=== PATIENT | male | born 1940 | race Caucasian/White ===

== ENCOUNTER → 2016-07-02 10:32 | Outpatient (CLI) | payer MEDICARE, OTHER ==
[2015-09-21 09:48] VITALS: BMI 26.6
[~2016-07-02 10:32] MED LIST: AUGMENTIN 875-11 TAB PO; BAYER CHEWABLE81 MG PO; FLOMAX0.4 MG PO; FUROSEMIDE20 MG PO; GLIMEPIRIDE4 MG PO; HYDROCODONE-APA1 TAB PO; KENALOG 0.1 % 115 GM TOPICAL; LIPITOR20 MG PO; LOTREL 5/20 MG1 CAP; MAG-OXIDE400 MG PO; MULTI-DAY VITAM1 TAB PO; NORMODYNE / TR200 MG PO; OMEPRAZOLE20 M1 PO; PROSCAR5 MG PO; TIMOPTIC 0.5 % O5 ML EACH EYE; TOUJEO SOL300 UNIT/1 SC; XALATAN 0.0052.5 ML RIGHT EYE; ZYLOPRIM100 MG PO
== END | disposition home or self-care (01) ==
LOC: D.US 10:32
DX: I10 Essential (primary) hypertension (principal); E78.2 Mixed hyperlipidemia; N18.4 Chronic kidney disease, stage 4 (severe); E11.9 Type 2 diabetes mellitus without complications; Z68.27 Body mass index [BMI] 27.0-27.9, adult

== ENCOUNTER 2018-08-10 05:50 | Day surgery (SDC) | payer MEDICARE, OTHER ==
[~2018-08-10] VITALS: Ht 177.8 cm; Wt 84.4 kg
[2018-08-10 06:27] LABS: BASOPHILS 0.7 % (0-2); EOSINOPHILS 7.8 % (0-7); HEMATOCRIT 27.5 % (42.0-54.0); IMMATURE GRANULOCYTES 0.1 % (0-5); LYMPHOCYTES 19.5 % (15-50); MCH 29.2 pg (26.0-34.0); MCHC 32.7 g/dL (31.0-37.0); MCV 89.3 fL (80.0-100.0); MEAN PLATELET VOLUME 11.1 fL (7.4-10.4); NEUTROPHILS 63.9 % (40-80); PLATELET COUNT 346 10x3/uL (130-400); RBC 3.08 10x6/uL (4.20-6.10); WBC 8.7 10x3/uL (4.8-10.8)
[2018-08-10 06:35] LABS: APTT 33.7 SECONDS (22.8-39.4); INR 1.04 (0.85-1.17); PROTIME 13.1 SECONDS (11.6-15.0)
[2018-08-10 06:51] LABS: ANION GAP 20.3 mmol/L (8-16); CALCIUM 7.8 mg/dL (8.5-10.1); CARBON DIOXIDE 19.9 mmol/L (21.0-32.0); POTASSIUM - SERUM 4.2 mmol/L (3.5-5.1)
[2018-08-10] MEDS ORDERED: VITAMIN D250000 UNIT PO (09:07)
[2018-08-10] MEDS ORDERED: SODIUM BICARBO650 MG PO (09:09)
[2018-08-10 09:14] VITALS: Ht 177.8 cm; Wt 84.4 kg
--- NOTE | 2018-08-10 13:31 | NUR ---
5623 DR. VEGA PAGED TO INFORM OF HEMATOMA FORMATION
--- NOTE | 2018-08-10 13:38 | NUR ---
0905 PT REQUESTS SOMETHING FOR PAIN, DR. VEGA PAGED. WATER SERVED.
--- NOTE | 2018-08-11 17:25 | OP ---
PATIENT NAME: GILDA CONTRERAS MEDICAL RECORD: [id number] :38 LOCATION:D.FORMERLY [facility] [place] ADMISSION DATE: SURGEON: MICHEL VEGA MD DATE OF OPERATION: 08/10/2018 PREOPERATIVE DIAGNOSES: 1. End-stage renal disease without chronic access for hemodialysis. 2. History of a positive cardiac stress test. POSTOPERATIVE DIAGNOSES: 1. End-stage renal disease without chronic access for hemodialysis. 2. History of a positive cardiac stress test. PROCEDURE: Placement of left radiocephalic primary arteriovenous fistula for hemodialysis access. SURGEON: Michel Vega MD PUBLIC ADDRESS SYSTEM OPERATOR: None. BLOOD LOSS: Less than 75 cc. ANESTHESIA: Local with IV sedation. The risks, possible complications and alternatives to the procedure were explained to the patient. He elects to proceed. OPERATIVE COURSE: The patient was conveyed to the operating room electively on 08/10/2018. Local with IV sedation was induced by anesthesia staff. The left upper extremity was sterilely prepped and draped and abducted at 90 degrees to the patient's trunk. A local anesthetic was used to infiltrate the tissues around the proposed operative site. With the ultrasound, I interrogated the left upper extremity identified a compressible fairly large cephalic vein in the arm as well as an adequately sized cephalic vein in the forearm and extending out onto to the wrist. A Jaylin tourniquet was applied on the extremity proximally. An axial incision was accomplished on the volar surface of the distal forearm extending down onto the wrist. I dissected down to the radial artery with its paired venous branches. The venous branches were ligated multiply and divided between ligatures. The radial artery was of good quality and nicely sized. Vessel loops were placed proximally and distally. I then dissected down to the cephalic vein, which was unfortunately small in size; however, it was supple. A tie was placed in the cephalic vein distally and it was divided proximally. I then beveled the cephalic vein with a pair of micro-Mantilla scissors. A longitudinal arteriotomy was accomplished on the radial artery. A side-to-end arterial to venous anastomosis was then fashioned with a running 7-0 Prolene. There was a thrill within the fistula. A topical hemostatic agent was added to the wound for hemostasis. The subdermis was approximated with interrupted 3-0 Vicryls. The skin was approximated with a running intracuticular 3-0 Vicryl. A sterile dressing was applied. OPERATIVE REPORT [id number] GILDA CONTRERAS The patient was then conveyed to the outpatient department. He developed a subcutaneous hematoma that I am going to manage expectantly. TRANSINT:[id number] Voice Confirmation ID: [id number] DOCUMENT ID: [id number] MICHEL VEGA MD at 1725 CC: [id number] DICTATION DATE: 08/10/18 1444 STUD SHEEP FARMER: 08/10/18 1626 [facility] 08/10/18 [address] [place] [address]
== END 2018-08-10 15:25 | disposition home or self-care (01) ==
LOC: D.OPS 05:50
PROVIDERS: Anesthesiology; ATTEND Internal Medicine Nephrology
DX: N18.6 End stage renal disease (principal); R94.39 Abnormal result of other cardiovascular function study; Z01.812 Encounter for preprocedural laboratory examination

== ENCOUNTER 2019-01-12 07:41 | Inpatient (IN) | payer MEDICARE, OTHER ==
[~2019-01-12] VITALS: Ht 177.8 cm; Wt 79.1 kg
[~2019-01-12 07:41] MED LIST changes: +SODIUM BICARBO650 MG PO; +VITAMIN D250000 UNIT PO
[2019-01-12 08:28] LABS: ANION GAP 13.8 mmol/L (8-16); CALCIUM 9.4 mg/dL (8.5-10.1); CARBON DIOXIDE 27.4 mmol/L (21.0-32.0); CREATININE - SERUM 4.8 mg/dL (0.6-1.3); POTASSIUM - SERUM 4.2 mmol/L (3.5-5.1)
[2019-01-12 08:31] LABS: APTT 31.5 SECONDS (22.8-39.4); INR 1.03 (0.85-1.17)
[2019-01-12 09:23] LABS: HEMATOCRIT 35.7 % (42.0-54.0); HEMOGLOBIN 12.1 g/dL (13.5-17.5); MCH 30.3 pg (26.0-34.0); MCHC 33.9 g/dL (31.0-37.0); MCV 89.3 fL (80.0-100.0); MEAN PLATELET VOLUME 10.8 fL (7.4-10.4); PLATELET COUNT 364 10x3/uL (130-400); RDW 16.4 % (11.5-14.5); WBC 9.5 10x3/uL (4.8-10.8)
[2019-01-12] MEDS ORDERED: LISINOPRIL20 MG PO (09:28)
[2019-01-12 09:52] VITALS: BMI 25.0
[2019-01-12 10:15] LABS: ANISOCYTOSIS OCC; EOSINOPHILS 11 % (0-7); LYMPHOCYTES 21 % (15-50); MONOCYTES 9 % (2-11); NEUTROPHILS 57 % (40-80); PLATELET ESTIMATE NORMAL
[2019-01-12 10:16] LABS: HYPOCHROMASIA OCC; ROULEAUX OCC
[2019-01-12 16:31] VITALS: BP 166/84
[2019-01-12 17:08] VITALS: BP 166/84; Ht 177.8 cm; Wt 79.1 kg
[2019-01-12 20:00] VITALS: BP 156/77
[2019-01-13] VITALS: BP 153/78
[2019-01-13 04:00] VITALS: BP 130/76
[2019-01-13] MEDS ORDERED: HYDROCODON-ACE1 EAC7 PO (09:04)
--- NOTE | 2019-01-13 09:21 | OP ---
PATIENT NAME: GILDA CONTRERAS MEDICAL RECORD: [id number] :38 LOCATION:D.M2 D.2108 ADMISSION DATE:01/12/19 SURGEON: CRUZITO VEGA MD DATE OF OPERATION: 01/12/2019 PREOPERATIVE DIAGNOSIS: End-stage renal disease without peripheral access for hemodialysis. POSTOPERATIVE DIAGNOSIS: End-stage renal disease without peripheral access for hemodialysis. PROCEDURE: Left proximal radial artery arteriovenous fistula for hemodialysis access. SURGEON: Cruzito Vega MD FISH DRIER: None. BLOOD LOSS: Minimal. ANESTHESIA: Block with general. COMPLICATIONS: None. The risks, possible complications and alternatives to the procedure were explained to the patient. He elects to proceed. I saw the patient preoperatively. The patient underwent an upper extremity block for venous dilation. OPERATIVE COURSE: The patient was conveyed to the operating room electively on 01/12/2019. General anesthesia was induced by anesthesia staff. The left upper extremity was abducted at 80 degrees to the patient's trunk. The left upper extremity was sterilely prepped and draped. I supinated the patient's left wrist. An axial incision was accomplished on the volar surface of the proximal forearm. I dissected down to the antebrachial vein, which was encircled with vessel loops. A deep branch was ligated with a silk tie. I then identified the antebrachial nerve, which was protected for the operation. I dissected down to the radial artery, which was of moderate quality and nicely sized. It was encircled with vessel loops as well. Intravenous heparin was given. The antebrachial vein and the radial artery were then placed into apposition side by side. A longitudinal venotomy and longitudinal arteriotomy were accomplished. I then dilated up the antebrachial vein lysing some of the valves as I inserted a vessel dilator out the forearm. I then fashioned a [id number]-ax-rcfm anastomosis with a running 7-0 Prolene suture. Proximal and distal control was released on the fistula. Doppler signal could be heard in the brachial artery proximal and distal to the anastomosis as well as within the antebrachial vein and both the basilic and cephalic veins. Fibrillar was added to the wound for additional hemostasis. The subdermis was approximated with interrupted 3-0 Vicryls. The skin was approximated with a running intracuticular 3-0 Vicryl. Benzoin and Steri-Strips were applied. The patient was then extubated and conveyed to the post-anesthesia care unit OPERATIVE REPORT [id number] BENGILDA EDIE where he was in stable condition. My plan is to admit him to the hospital overnight. My hope is that he can undergo hemodialysis in the morning and then be dismissed home with Sipsey for pain. TRANSINT:[id number] Voice Confirmation ID: [id number] DOCUMENT ID: [id number] CRUZITO VEGA MD at 0921 CC: CATHERINE KHALIL [id number] DICTATION DATE: 01/12/19 1536 WELDING MACHINE SETTER: 01/12/19 1618 ADM IN [facility] [address] [id number]
--- NOTE | 2019-01-13 09:53 | DS ---
PATIENT:IGLDA CONTRERAS :38 MEDICAL RECORD: [id number] DISCHARGE SUMMARY ADMISSION DATE: 01/12/19 DISCHARGE DATE: 01/13/19 PRINCIPAL DIAGNOSES: 1. End-stage renal disease without peripheral access for hemodialysis. 2. History of a failed wrist fistula. 3. History of HemoSplit placement. 4. Anemia of chronic disease, not related to blood loss. 5. Benign prostatic hyperplasia. PROCEDURE: Placement of left proximal radial artery fistula for hemodialysis access. HOSPITAL COURSE: The patient underwent the above operative procedure. He was monitored in the hospital postoperatively to observe for bleeding. The following day, he was having no distal paresthesias. No evidence of steal syndrome. He had had a preoperative block in order to dilate the left upper extremity vasculature and this had worn off. He had good motor function in the left hand. There was an excellent thrill within the fistula. I think there is at least dual outflow and perhaps treble outflow from the fistula. He is being dismissed home on hydrocodone for pain. I will see him on a p.r.n. basis. There is no need for him to follow up with me in the office unless he develops a complication related to this operative procedure. TRANSINT:[id number] Voice Confirmation ID: [id number] DOCUMENT ID: [id number] CRUZITO VEGA MD at 0953 CC: CATHERINE KHALIL [id number] DICTATION DATE: 01/13/19919 TECHNOLOGY DEVELOPMENT INTERN: 01/13/19929 DIS IN 01/13/19 [id number] [place] [id number]
--- NOTE | 2019-01-13 17:15 | MORECARE ---
CASE MANAGEMENT DISCHARGE SUMMARY PATIENT: GILDA CONTRERAS UNIT: [id number] ADM DATE: 01/12/19 AGE: 78 : 39 SEX: M ROOM/BED: D.2108 AUTHOR: DARIUSZ POSEY PHYSICIAN: REFERRING PHYSICIAN: CRUZITO VEGA MD DATE OF SERVICE: 01/13/19 Discharge Plan Patient Name: GILDA CONTRERAS Facility: [facility]:[place] : 1940 Planned Disposition: Home Anticipated Discharge Date: 01/13/19 Discharge Date: 01/13/2019 Expected LOS: 1 Initial Reviewer: [email or web address] Initial Review Date: 01/13/2019 Generated: 01/13/19 6:15 pm DCPIA - Discharge Planning Initial Assessment Updated by [email or web address]: Tae Garcia on 01/13/19 5:15 pm * Is the patient Alert and Oriented? Yes * How many steps to enter\exit or inside your home? * PCP DR BUSH * Pharmacy [facility] IN [place] * Preadmission Environment Home with Family * ADLs Independent * Equipment None * Other Equipment MEDICAL EQUIPMENT PROVIDER IN [place] - PROVIDER [facility]REF[facility]CE * List name and contact numbers for known caregivers / representatives who currently or will assist patient after discharge: SANDIE CONTRERAS, SPOUSE, * Verbal permission to speak to the caregivers and representatives has been obtained from the patient. N/A * Community resources currently utilized Other * Please name any agencies selected above. [facility], [place], MWF, 0600, [facility] * Additional services required to return to the preadmission environment? No * Can the patient safely return to the preadmission environment? Yes * Has this patient been hospitalized within the prior 30 days at any hospital? No Patient Name: GILDA CONTRERAS Page 54411 at 1719 All edits/amendments must be made on the electronic document DICTATION DATE: 01/13/191714 EMBOSSING CALENDER OPERATOR: WILLIAM 01/13/191714 RPT#: [id number] DC DATE:01/13/19 STATUS: DIS IN [facility] [address] [place] [address] END OF REPORT
--- NOTE | 2019-01-13 17:23 | MORECARE ---
CASE MANAGEMENT DISCHARGE SUMMARY PATIENT: GILDA CONTRERAS UNIT: [id number] ADM DATE: 01/12/19 AGE: 78 : 39 SEX: M ROOM/BED: D.210 AUTHOR: TATY,DOC PHYSICIAN: REFERRING PHYSICIAN: CRUZITO VEGA MD DATE OF SERVICE: 01/13/19 Discharge Plan Patient Name: GILDA CONTRERAS Facility: [facility]:[place] : 1940 Planned Disposition: Home Anticipated Discharge Date: 01/13/19 Discharge Date: 01/13/2019 Expected LOS: 1 Initial Reviewer: [email or web address] Initial Review Date: 01/13/2019 Generated: 01/13/19 6:23 pm Comments DCP- Discharge Planning Updated by [email or web address]: Tae Garcia on 01/13/19 4:[address] Patient Name: GILDA CONTRERAS Admission Status: Elective Accout number: [id number] Admission Date: 01-12-2019 : 1940 Admission Diagnosis: Attending: CRUZITO VEGA Current LOS: 1 Anticipated DC Date: 01-13-2019 Planned Disposition: Home Primary Insurance: MEDICARE A & B Discharge Planning Comments: Yeast Maker: Tae Garcia CM MET WITH PT IN ROOM TO DISCUSS DISCHARGE PLANNING AND NEEDS. PT REPORTS LIVING AT HOME INDEPENDENTLY WITH SPOUSE. PT HAS NO MEDICAL EQUIPMENT AND IF EVER NEEDED, WOULD USE PROVIDER IN [place]. PT HAS NO OUTSIDE SERVICES ASSISTING IN THE HOME. PT HAS DIALYSIS IN [place] ON MWF 0600AM SCHEDULE AND DRIVES SELF. CM DISCUSSED AVAILABILITY OF HOME HEALTH, REHAB SERVICES AND MEDICAL EQUIPMENT. PT DENIES DISCHARGE NEEDS, REPORTS HIS WILL PICK HIM UP FOR DISCHARGE HOME. Yeast Maker: Tae Garcia DCPIA - Discharge Planning Initial Assessment Updated by [email or web address]: Tae Garcia on 01/13/19 5:15 pm * Is the patient Alert and Oriented? Yes * How many steps to enter\exit or inside your home? * PCP DR BUSH * Pharmacy [facility] IN [place] * Preadmission Environment Home with Family * ADLs Independent * Equipment None * Other Equipment MEDICAL EQUIPMENT PROVIDER IN [place] - PROVIDER [facility]REF[facility]CE * List name and contact numbers for known caregivers / representatives who currently or will assist patient after discharge: SANDIE BROWNOOL, SPOUSE, * Verbal permission to speak to the caregivers and representatives has been obtained from the patient. N/A * Community resources currently utilized Other * Please name any agencies selected above. OUTPATIENT DIALYS[facility], [facility] [place], 0600, [facility] * Additional services required to return to the preadmission environment? No * Can the patient safely return to the preadmission environment? Yes * Has this patient been hospitalized within the prior 30 days at any hospital? No Last DP export: 01/13/19 4:15 p Patient Name: GILDA CONTRERAS Page [id number] at 1723 All edits/amendments must be made on the electronic document DICTATION DATE: 01/13/191722 HEAD ANIMAL TRAINER: WILLIAM 01/13/191722 RPT#: [id number] DC DATE:01/13/19 STATUS: DIS IN [facility] [address] [place] [address] END OF REPORT
== END 2019-01-13 09:26 | disposition home or self-care (01) | DRG 673 ==
LOC: D.OPS 07:41 → D.M2 16:27 → D.OPS 16:28 → D.M2 01-13 09:26
PROVIDERS: Anesthesiology; ADMIT Surgery; ATTEND Surgery
PROC: 031C0ZF Bypass Left Radial Artery to Lower Arm Vein, Open Approach (ICD-10-PCS; principal; 2019-01-12 11:30)
DX: I12.0 Hypertensive chronic kidney disease with stage 5 chronic kidney disease or end stage renal disease (principal); N18.6 End stage renal disease; E11.22 Type 2 diabetes mellitus with diabetic chronic kidney disease; N40.0 Benign prostatic hyperplasia without lower urinary tract symptoms; D63.1 Anemia in chronic kidney disease

== ENCOUNTER → 2019-01-19 08:23 | Outpatient (CLI) | payer MEDICARE, OTHER ==
[2019-01-12 17:08] VITALS: BMI 25.0
[~2019-01-19 08:23] MED LIST changes: +HYDROCODON-ACE1 EAC7 PO; +LISINOPRIL20 MG PO
--- NOTE | 2019-01-22 10:47 | EC ---
PATIENT:GILDA CONTRERAS DATE OF SERVICE: 01/19/19 SEX: M MEDICAL RECORD: [id number] DATE OF : 38 LOCATION:[facility]FORMERLY [facility] AGE OF PATIENT: 78 ADMISSION DATE: 01/19/19 REFERRING PHYSICIAN: INTERPRETING PHYSICIAN: KOFFI MAHMOOD MD ECHOCARDIOGRAM REPORT ECHO CHARGES 4 ECHO COMPLETE Date: 01/19/19 CLINICAL DIAGNOSIS: HTN / RENAL DISEASE ECHOCARDIOGRAPHIC MEASUREMENTS (adult normal given) AC root (d.<3.7cm) 3.0 cm LV Septum d (<1.2 cm> 1.5 cm Valve Excursion 1.6 cm LV Septum (systole) 1.7 cm Left Atria (s.<4.0cm> 4.1 cm LVPW d(<1.2cm) 1.8 cm RV (d.<2.3cm) 4.2 cm LVPW (sytole) 1.9 cm LV diastole(<5.6CM) 5.1 cm MV E-F(>70mm/sec) cm LV systole 3.7 cm LVOT Diameter 1.7 cm MV exc.(>10mm) 1.5 cm Est.ejection fraction (50-75%) % DOPPLER: LVIT cm/sec A 90.0 cm/sec E 66.0 cm/sec LA cm/sec RVSP 26 mmHg LVOT 78 cm/sec AOP1/2T m/s Asc. Ao 159 cm/sec RVOT 79 cm/sec RA cm/sec PA 113 cm/sec AV Gradient Peak 10.12mmHg AV Mean 5.90 mmHg AV Area 2.4 cm MV Gradient Peak 6.92 mmHg MV Mean 2.75 mmHg MV Area cm COMMENTS: Forest Fire Prevention Manager: Luis Fernando ALMANZA Manager Enterprise Content Management: 1 Dr. Mahmood TAPE# PACS Pericardial Effusion N DATE OF SERVICE: 01/19/2019 PROCEDURE: Echocardiogram. FINDINGS: 1. Left ventricular chamber size is within normal limits. Left ventricular systolic function is normal. Overall ejection fraction 60% to 65%. 2. Left atrium, right atrium, and right ventricular chamber sizes are mildly dilated. Left atrium measures 4.1 cm. 3. Valvular structures have normal structure and motion. ECHOCARDIOGRAM REPORT [id number] GILDA CONTRERAS 4. Doppler interrogation reveals moderate mitral regurgitation, mild tricuspid regurgitation, no other valvular insufficiency or stenosis. 5. No evidence of pericardial effusion or left ventricular thrombus. TRANSINT:[id number] Voice Confirmation ID: [id number] DOCUMENT ID: [id number] KOFFI MAHMOOD MD at 1047 CC: [id number] DICTATION DATE: 01/20/19 1229 SUCCESS COACH: 01/20/19 1257 DEP CLI 01/19/19 [address] [id number] [place] [id number]
== END | disposition home or self-care (01) ==
LOC: D.HCCARDIO 08:23
PROVIDERS: ATTEND Internal Medicine Interventional Cardiology
DX: I10 Essential (primary) hypertension (principal)

== ENCOUNTER → 2019-10-05 12:18 | Outpatient (CLI) | payer MEDICARE, OTHER ==
[2019-01-12 17:08] VITALS: BMI 25.0
== END | disposition home or self-care (01) ==
LOC: D.US 12:18
PROVIDERS: ATTEND Internal Medicine Nephrology
DX: I65.21 Occlusion and stenosis of right carotid artery (principal)

== ENCOUNTER 2019-10-12 11:11 | Inpatient (IN) | payer MEDICARE, OTHER ==
[2019-10-12] VITALS (13 sets, daily range): BP systolic 129–172; BP diastolic 76–98; BMI 25.3; BMI 25.1
[~2019-10-12] VITALS: Ht 177.8 cm; Wt 69.6 kg
--- NOTE | ~2019-10-12 | HEMODYNAMI ---
PATIENT:GILDA CONTRERAS MEDICAL RECORD: [id number] : 38 LOCATION:[facility] ADMISSION DATE: 10/12/19 Generatedon:10/14/201916:34 Patient name: GILDA CONTRERAS Patient #: [id number] SSN: [id number] : 1940 Date of study: 10/14/2019 Page: Of Hemodynamic Procedure Report Patient Data Patient Demographics Procedure consent was obtained First Name: GILDA Gender: Male Last Name: BEN : 1940 Middle Initial: IRIZARRY Age: 79 year(s) Patient #: [id number] Race: SSN: [id number] Additional ID: [id number] Contact details Address: [address] State: [place] City: [place] Zip code: [address] Past Medical History Allergies Allergen Reaction Date Comments Reported Other allergy 10/12/2019 MORPHINE Morphine 10/14/2019 Admission Admission Data Admission Date: 10/12/2019 Admission Time: 21:47 Arrival Date: 10/12/2019 Arrival Time: 0:00 Room #: [id number] Height (in.): 70 BSA: 1.98 (m2) Height (cm.): 177.8 BMI: 25.31 (kg/m2) Weight (lbs.): 176.37 Weight (kg.): 80 Lab Results Lab Result Date: 10/12/2019 Lab Result Time: 0:00 Biochemistry Name Units Result Min Max BUN mg/dl 39 --(----)-* 7 18 Creatinine mg/dl 5.9 --(----)-* 0.6 1.3 eGFR ml/min 10 *-(----)-- 90 120 NONAFRICAN CBC Name Units Result Min Max Hematocrit % 29.9 *-(----)-- 42 54 Hemoglobin g/dl 9.3 *-(----)-- 13.5 17.5 Procedure Procedure Types Cath Procedure Diagnostic Procedure Intra-Aortic Balloon Pump Peripheral Cath Diagnostic Procedure Service Inspector Peripheral Procedures Four Vessel Arteriogram Procedure Description Procedure Date Procedure Date: 10/14/2019 Procedure Start Time: 15:54 Procedure End Time: 16:31 Procedure Staff Name Function Hussein Leach MD Performing Physician Alysa Holman RT Monitor Norma Carranza RT Scrub Brooke Walls RN Nurse Procedure Data Cath Procedure Fluoroscopy Diagnostic fluoroscopy Total fluoroscopy Time: 3.2 time: 3.2 min min Diagnostic fluoroscopy Total fluoroscopy dose: 140 dose: 140 mGy mGy Contrast Material Contrast Material Type Amount (ml) Isovue 300 65 Entry Location Entry Primary Successful Side Size Upsize Upsize Entry Closure Succes sful Closure Location (Fr) 1 (Fr) 2 (Fr) Remarks Device Remarks Femoral Right 8 Fr artery Estimated blood loss: 10 ml Diagnostic catheters Device Type Used For End Catheter Placement DIAGNOSTIC 3DRC 5Fr Procedure catheter ([id number]) Procedure Complications No complications Procedure Medications Medication Administration Route Dosage 0.9% NaCl I.V. 100 ml/hr Oxygen etCO2 Nasal cannula 2 l/min Lidocaine 2% added to field 20 Heparin Flush Bag added to field 2 bags (1000units/500ml NS) Heparin Drip I.V. drip 1000 units/hr ([id number]/250 D5W) Versed I.V. 2 mg Fentanyl I.V. 50 mcg Digoxin I.V. 0.25 mg Lopressor I.V. 5 mg Mechanical Ventricular Support IABP: In place at start of procedure Hemodynamics Rest BSA: 1.98 (m2) HGB: 9.3 (g/dl) O2 Consumption: Estimated: 259.09 (ml/min) O2 Con sumption indexed: Estimated:130.85 (ml/min/m) Heart Rate: 114 (bpm) Snapshots Pre Cath Intra NCS Post Cath Vital Signs Time Heart Resp SPO2 etCO2 NIBP (mmHg) Rhythm Pain Sedation Rate (ipm) (%) (mmHg) Status Level (bpm) 15:31:58 112 26 97 11.9 162/94(129) ST 0 (11) 10(A) , No pain 15:36:10 108 18 97 28.7 124/78(113) ST 0 (11) 10(A) , No pain 15:40:20 107 11 96 45.5 140/87(117) ST 0 (11) 10(A) , No pain 15:44:36 109 10 97 25.3 138/85(105) ST 0 (11) 10(A) , No pain 15:48:54 106 10 96 25.6 138/77(122) ST 0 (11) 10(A) , No pain 15:53:04 110 14 99 17.9 149/87(111) ST 0 (11) 10(A) , No pain 15:57:20 106 21 98 14.9 140/90(116) ST 0 (11) 9(A) , No pain 16:01:38 101 13 98 16.4 130/77(109) ST 0 (11) 9(A) , No pain 16:05:50 105 17 98 14.9 139/85(116) ST 0 (11) 9(A) , No pain 16:10:49 101 [address] 0 (11) 9(A) , No pain 16:12:13 [address] 0 (11) 9(A) Exceeded , No pain 16:14:10 102 22 96 14.2 125/67(98) ST 0 (11) 10(A) , No pain 16:18:11 107 22 98 1.4 132/93(114) ST 0 (11) 10(A) , No pain 16:23:11 92 [address] 0 (11) 10(A) , No pain 16:24:28 90 [address] 0 (11) 10(A) range , No pain Medications Time Medication Route Dose Verified Delivered Reason No christina Effectiveness by by 15:30:58 0.9% NaCl I.V. 100 Hussein Brooke used for ml/hr Hany Titi procedure MD SIMMONS 15:31:04 Oxygen etCO2 2 l/min Hussein Guerraa used for Nasal Hany Titi procedure cannula MD [facility]MONS 15:31:10 Lidocaine 2% added 20ml Hussein [facility] 15:31:15 Heparin Flush added 2 bags Hussein Savage used for Bag to Hany Hany procedure (1000units/500ml field MD [facility] NS) 15:31:29 Heparin Drip I.V. 1000 Hussein Brooke for (93080gxypf/250 drip units/hr Hany Titi anticoagulation D5W) RN 15:53:00 Versed I.V. 2 mg Hussein Cox for sedation St Abiodun Walls MD RN 15:53:06 Fentanyl I.V. 50 mcg Hussein Cox for sedation St Abiodun Walls MD RN 16:22:08 Digoxin I.V. 0.25 mg Hussein Guerraa Per physician St Abiodun Walls MD RN 16:22:39 Lopressor I.V. 5 mg Hussein Cox Per physician St Abiodun Walls MD information technology intern Log Time Note 15:14:14 Procedure Status Urgent Heart Cath (IP). 15:14:17 Brooke Walls RN sent for patient. Start room use. 15:14:18 Time tracking: Regular hours (M-F 7:00 - 5:00) 15:14:22 Plan of Care:Hemodynamics will remain stable., Cardiac rhythm will remain stable., Comfort level will be maintained., Respiratory function will remain adequate., Patient/ family verbilizes understanding of procedure., Procedure tolerated without complication., Recovers from procedure without complications.. 15:14:24 Signed procedure consent form obtained from patient. 15:14:31 H&P Date Dictated: 10/14/2019 ER History on chart.. 15:28:57 Patient received from CVICU to CCL 1 Alert and oriented. Tansferred to table in Supine position. 15:28:58 Warm blankets applied, and jolene hugger turned on for patient comfort. 15:28:58 Correct patient and procedure confirmed by team. 15:28:59 ECG and BP/O2 sat monitors applied to patient. 15:30:50 Vital chart was started 15:30:58 0.9% NaCl 100 ml/hr I.V. was administered by Brooke Walls RN; used for procedure; Verbal order read back and verified. 15:31:04 Oxygen 2 l/min etCO2 Nasal cannula was administered by Brooke Walls RN; used for procedure; Verbal order read back and verified. 15:31:10 Lidocaine 2% 20ml vial added to field was administered by Hussein Leach MD; for local anesthetic; Verbal order read back and verified. 15:31:15 Heparin Flush Bag (1000units/500ml NS) 2 bags added to field was administered by Hussein Leach MD; used for procedure; Verbal order read back and verified. 15:31:29 Heparin Drip (63281bzvnu/250 D5W) 1000 units/hr I.V. drip was administered by Brooke Walls RN; for anticoagulation; Verbal order read back and verified. 15:32:18 Baseline sample Acquired. 15:32:29 Rhythm: atrial fibrillation 15:32:30 Full Disclosure recording started 15:32:31 Pre-procedure instructions explained to patient. 15:32:31 Pre-op teaching completed and patient verbalized understanding. 15:32:33 Family unavailable. 15:32:35 Patient NPO since Midnight. 15:32:48 Patient allergic to Morphine 15:32:53 Is the patient allergic to Iodine/contrast media? No. 15:32:54 Is patient on blood thinner?No 15:33:14 Patient diabetic? No. 15:33:16 Previous problem with sedation/anesthesia? No ? 15:33:17 Snore? Yes 15:33:18 Sleep apnea? No 15:33:20 Deviated septum? No 15:33:21 Opens mouth fully? Yes 15:33:23 Sticks out tongue? Yes 15:33:25 Airway obstruction? No ? 15:33:27 Dentures? No ? 15:33:30 Pre procedure: right dorsailis pedis pulse 1+ Palpable, but thready & weak; easily obliterated 15:33:33 Patient pain scale 0/10 ?. 15:33:37 IV patent on arrival in right hand with 0.9% NaCl at [facility]. 15:33:40 Lab results completed and on chart. 15:33:45 Right groin area was prepped with chlora-prep and draped in sterile fashion 15:33:46 Alarms reviewed by R. N. 15:33:46 Sharps counted by scrub and verified by R.N. 15:34:22 Use device set CATH PACK 15:34:23 ACIST Syringe (80456) opened to sterile field. 15:34:23 ACIST Hand Control (04364) opened to sterile field. 15:34:23 ACIST Manifold (01430) opened to sterile field. 15:34:24 Medline Cath Pack ([id number]) opened to sterile field. 15:34:24 Bag Decanter (2001S) opened to sterile field. 15:34:25 EMERALD Guide Wire (390-157) opened to sterile field. 15:34:54 IABP 40cm balloon catheter ([id number]) opened to sterile field. 15:34:56 TUBING High Pressure Extension (IABP) opened to sterile field. 15:35:16 Sheath 8fr. [place] 10cm opened to sterile field. 15:51:18 --------ALL STOP TIME OUT------ 15:51:19 Final Timeout: patient, procedure, and site verified with staff and physician. All members of the team are in agreement. 15:51:20 Right groin site verified by team. 15:51:23 Fire Safety Assessment: A--An alcohol-based skin anteseptic being used preoperatively., C--Open oxygen or nitrous oxide is being used., D--An ESU, laser, or fiber-optic light is being used. 15:51:27 Physical assessment completed. ASA score P 3 - A patient with severe systemic disease as per Hussein Leach MD. 15:52:09 Sedation plan: IV Moderate Sedation Medication:Versed, Fentanyl 15:53:00 Versed 2 mg I.V. was administered by Brooke Walls RN; for sedation; Verbal order read back and verified. 15:53:06 Fentanyl 50 mcg I.V. was administered by Brooke Walls RN; for sedation; Verbal order read back and verified. 15:54:01 Procedure started. 15:54:06 Local anesthetic to right femoral artery with Lidocaine 2% by Hussein Leach MD.INITIAL ACCESS ONLY 15:54:41 A 8 Fr sheath was inserted into the Right Femoral artery 15:55:38 Procedure type changed to Cath procedure, Diagnostic procedure, Intra-Aortic Balloon Pump, Peripheral Cath Diagnostic Procedure, Service Inspector Peripheral Procedures, Four Vessel Arteriogram 15:55:49 A DIAGNOSTIC 3DRC 5Fr catheter ([id number]) was advanced over the wire and used for Procedure. 15:56:43 Left carotid angiography performed. 16:03:45 Right carotid angiography performed. 16:03:51 Catheter removed. 16:04:38 40cc IABP inserted into the RFA . 16:08:31 Augmentation: 1:1 per physician. 16:09:36 Trigger: Pressure 16:10:11 Procedure ended.(Physican Out) 16:11:16 8FR SHEATH was sutured in with 2-0 SILK. 16:11:27 2-0 Silk 685H opened to sterile field. 16:11:30 2-0 Silk 685H opened to sterile field. ::46 Fluoroscopy time 03.20 minutes. 16:11:50 Flurop Dose total: 140 16:11:50 Fluoroscopy dose: 140 mGy 16:11:56 Dose Area Product 63330 mGy/cm. 16:12:00 Contrast amount:Isovue 300 65ml. 16:12:04 Maximum allowable dose exceeded? Yes. 16:12:05 Sharps counted by scrub and verified by R.N. 16:12:12 Post-op/insertion site Right Femoral artery dressed using a 4 x 4 and Tegaderm. 16:12:32 Post-procedure physical assessment completed. ASA score P 3 - A patient with severe systemic disease as per Hsusein Leach MD. 16:12:38 Post procedure rhythm: unchanged. 16:12:49 Patient Weight : 176.37 lbs 16:12:52 Patient Height : 70 inches 16:13:39 IABP : In place at start of procedure 16:22:08 Digoxin 0.25 mg I.V. was administered by Brooke Walls RN; Per physician; Verbal order read back and verified. 16:22:39 Lopressor 5 mg I.V. was administered by Brooke Walls RN; Per physician; Verbal order read back and verified. 16:24:23 Estimated blood loss: 10 ml 16:24:25 Post procedure instruction explained to patient.Patient verbalizes understanding. 16:24:26 Patient needs reinforcement of post procedure teaching. 16:24:27 Procedure and supply charges have been captured, reviewed, submitted and are correct. 16::46 Procedure Complication : No complications 16:30:37 Operative report dictated upon procedure completion. 16:30:38 PHYLICIA to read BP via BP cuff. IABP BP reading 150/63 (126) 16:30:38 See physician's report for complete and final results. 16:30:40 Report given to CVICU. 16:30:42 Patient transfered to CVICU with Bed. 16:31:17 Vital chart was stopped 16:: Procedure ended. 16:: Full Disclosure recording stopped 16:31:25 End room use (Document Last) 16::42 End room use (Document Last) 16:32:11 End room use (Document Last) Device Usage Item Name Manufacture Quantity Catalog Number [facility] Part Bekah wilcox Minimal Lot# / Charge Number Stock Stock Serial# Code ACIST Syringe Acist 1 43090 [id number] [id number] [id number] 20 (38697) [employer] ACIST Hand Acist 1 78422 979388 534980 377297 5 Control (37291) [employer] ACIST Manifold Acist 1 80211 513502 718619 998917 5 (14271) [employer] Medline Cath Medline 1 [id number] 983551 68879 188244 5 Pack ([id number]) Bag Decanter Microtek 1 2001S 570413 26478 973065 5 (2001S) Medical Inc. EMERALD Guide Cardinal 1 259-752 502335 466070 561766 5 Wire (643-277) Health IABP 40cm [facility] 1 [id number] 663790 054799 577811 1 [employer] catheter (533291) ([id number]) TUBING High Merit 1 [id number] 729331 940625 338498 5 Pressure Medical Extension (IABP) Sheath 8fr. Terumo 1 [id number] 673988 348236 1 5 [place] 10cm DIAGNOSTIC 3DRC Cardinal 1 [id number] 327032 251143 993227 9 5Fr catheter Health (759692H) 2-0 Silk 685H Ethicon 2 685H 531704 92374 493372 5 Signature Audit Jacob Stage Time Signature Unsigned Intra-Procedure 10/14/2019 Alysa Holman 4:31:42 PM RT(R) Intra-Procedure 10/14/2019 Brooke Walls 4:32:11 PM RN Intra-Procedure 10/14/2019 Hussein Garcia 4:34:34 PM Abiodun [facility] [address] [place] [address]
--- NOTE | ~2019-10-12 | HEMODYNAMI ---
PATIENT:GILDA CONTRERAS MEDICAL RECORD: [id number] : 38 LOCATION:[facility] ADMISSION DATE: 10/12/19 Generatedon:10/12/201914:12 Patient name: GILDA CONTRERAS Patient #: [id number] SSN: [id number] : 1940 Date of study: 10/12/2019 Page: Of Hemodynamic Procedure Report Patient Data Patient Demographics Procedure consent was obtained First Name: GILDA Gender: Male Last Name: BEN : 1940 [facility] Initial: IRIZARRY Age: 79 year(s) Patient #: [id number] Race: SSN: [id number] Additional ID: [id number] Contact details Address: [facility] [address] State: [place] City: [place] Zip code: [address] Past Medical History Allergies Allergen Reaction Date Comments Reported Other allergy 10/12/2019 MORPHINE Admission Admission Data Admission Date: 10/12/2019 Admission Time: 11:11 Arrival Date: 10/12/2019 Arrival Time: 0:00 Lab Results Lab Result Date: 10/12/2019 Lab Result Time: 0:00 Biochemistry Name Units Result Min Max BUN mg/dl 39 --(----)-* 7 18 Creatinine mg/dl 5.9 --(----)-* 0.6 1.3 eGFR ml/min 10 *-(----)-- 90 120 NONAFRICAN CBC Name Units Result Min Max Hematocrit % 29.9 *-(----)-- 42 54 Hemoglobin g/dl 9.3 *-(----)-- 13.5 17.5 Procedure Procedure Types Cath Procedure Diagnostic Procedure C [facility] w/Coronaries Sedation Charges Moderate Sedation up to 15 minutes Procedure Description Procedure Date Procedure Date: 10/12/2019 Procedure Start Time: 13:51 Procedure End Time: 14:11 Procedure Staff Name Function Hussein Leach MD Performing Physician Jesika Gandhi RT Monitor Brooke Walls RN Nurse Norma Carranza RT Scrub Indication Abnormal ECG Procedure Data Cath Procedure Fluoroscopy Diagnostic fluoroscopy Total fluoroscopy Time: 1.9 time: 1.9 min min Diagnostic fluoroscopy Total fluoroscopy dose: 606 dose: 606 mGy mGy Contrast Material Contrast Material Type Amount (ml) Isovue 300 67 Entry Location Entry Primary Successful Side Size Upsize Upsize Entry Closure Succes sful Closure Location (Fr) 1 (Fr) 2 (Fr) Remarks Device Remarks Femoral Right 5 Fr Exoseal artery Estimated blood loss: 5 ml Diagnostic catheters Device Type Used For End Catheter Placement MULTIPACK JL 4.0 5Fr Left Coronary catheter Angiography MULTIPACK 3DRC 5Fr Right Coronary catheter Angiography MULTIPACK Pigtail 5 Fr LV Angiography catheter Procedure Complications No complications Procedure Medications Medication Administration Route Dosage 0.9% NaCl I.V. Oxygen etCO2 Nasal cannula 2 l/min Lidocaine 2% added to field 20 Heparin Flush Bag added to field 2 bags (1000units/500ml NS) Versed I.V. 1 mg Fentanyl I.V. 50 mcg Hemodynamics Rest Heart Rate: 97 (bpm) Pressure Samples Time Site Value (mmHg) Purpose Heart Use Rate(bpm) 13:57 LV 157/20,21 Snapshot 91 Gradients Valve Time Site Site Mean SEP/DFP Peak To Heart Use 1 2 (mmHg) (sec/min) Peak Rate (mmHg) (bpm) Aortic 13:58 LV AO 92 Snapshots Pre Cath Intra NCS Post Cath Vital Signs Time Heart Resp SPO2 etCO2 NIBP (mmHg) Rhythm Pain Sedation Rate (ipm) (%) (mmHg) Status Level (bpm) 13:39:34 88 16 94 35 148/98(126) A-Fib 0 (11) 10(A) , No pain 13:44:20 91 11 97 38 154/91(132) A-Fib 0 (11) 10(A) , No pain 13:48:38 89 20 94 14.1 133/80(124) A-Fib 0 (11) 10(A) , No pain 13:52:46 91 22 97 41 148/98(129) A-Fib 0 (11) 9(A) , No pain 13:57:00 94 18 97 40.9 147/100(128) A-Fib 0 (11) 10(A) , No pain 14:01:16 92 10 97 40.2 143/89(129) A-Fib 0 (11) 10(A) , No pain 14:05:26 89 11 98 36.5 138/93(128) A-Fib 0 (11) 10(A) , No pain 14:09:40 90 11 98 38.7 143/84(116) A-Fib 0 (11) 10(A) , No pain Medications Time Medication Route Dose Verified Delivered Reason Notes Eff ectiveness by by 13:39:14 0.9% NaCl I.V. kvo Hussein Brooke used for ml/hr [facility] procedure MD SIMMONS 13:40:51 Oxygen etCO2 2 Hussein Brooke used for Nasal l/min [facility] procedure cannula MD SIMMONS 13:40:58 Lidocaine 2% added 20ml Hussein Savage for local to vial [facility] anesthetic field MD LINCOLN 13:41:02 Heparin Flush added 2 Hussein Hussein used for Bag to bags [facility] procedure (1000units/500ml field MD LINCOLN NS) 13:51:42 Versed I.V. 1 mg Hussein Mendesyla for Mos tly [facility] sedation sleeping @ MD SIMMONS 13:55:36 13:51:51 Fentanyl I.V. 50 Hussein Brooke for Mos tly mcg [facility] sedation sleeping @ MD SIMMONS 13:55:38 Procedure Log Time Note 13:20:46 Informed consent obtained and on chart 13:22:41 Time tracking: Regular hours (M-F 7:00 - 5:00) 13:22:47 Procedure Status Elective Heart Cath (OP). 13:26:56 Brooke Walls RN sent for patient. Start room use. 13:27:50 Plan of Care:Hemodynamics will remain stable., Cardiac rhythm will remain stable., Comfort level will be maintained., Respiratory function will remain adequate., Patient/ family verbilizes understanding of procedure., Procedure tolerated without complication., Recovers from procedure without complications.. 13:28:07 Indication : Abnormal ECG 13:28:15 Arrival Date: 10/12/2019 12:00:00 AM 13:28:45 Patient allergic to Other allergyMORPHINE 13:30:22 Patient received from Pre/Post Procedure Room to CCL 1 Alert and oriented. Tansferred to table in Supine position. 13:30:27 Warm blankets applied, and jolene hugger turned on for patient comfort. 13:30:27 Correct patient and procedure confirmed by team. 13:30:28 ECG and BP/O2 sat monitors applied to patient. 13:30:46 H&P Date Dictated: 10/12/2019 H&P Addendum completed by physician on day of procedure. (MUST COMPLETE FOR ALL OUTPATIENTS). 13:30:48 Pre-procedure instructions explained to patient. 13:30:49 Pre-op teaching completed and patient verbalized understanding. 13:30:53 Family unavailable. 13:30:55 Patient NPO since Midnight. 13:38:34 Vital chart was started 13:39:14 0.9% NaCl kvo ml/hr I.V. was administered by Brooke Walls RN; used for procedure; Verbal order read back and verified. 13:40:51 Oxygen 2 l/min etCO2 Nasal cannula was administered by Brooke Walls RN ; used for procedure; Verbal order read back and verified. 13:40:58 Lidocaine 2% 20ml vial added to field was administered by Hussein Leach MD; for local anesthetic; Verbal order read back and verified. 13:41:02 Heparin Flush Bag (1000units/500ml NS) 2 bags added to field was administered by Hussein Leach MD; used for procedure; Verbal order read back and verified. 13:43:51 Baseline sample Acquired. 13:46:22 Full Disclosure recording started 13:46:23 - 13:46:32 Is the patient allergic to Iodine/contrast media? Yes. 13:46:40 Rhythm: atrial fibrillation 13:46:48 Is patient on blood thinner?No 13:46:53 Patient diabetic? Yes. 13:47:05 ----Pre-sedation anethsthesia assessment.---- 13:47:17 Previous problem with sedation/anesthesia? No ? 13:47:19 Snore? Yes 13:47:31 Sleep apnea? Unknown 13:47:35 Deviated septum? Unknown 13:47:37 Opens mouth fully? Yes 13:47:40 Sticks out tongue? Yes 13:47:55 Airway obstruction? No ? 13:50:09 Dentures? Yes IN TIGHT 13:50:15 Pre procedure: right dorsailis pedis pulse 2+ Normal; easily identifiable; not easily obliterated 13:50:24 EMERALD Guide Wire (689-665) opened to sterile field. 13:50:35 IV patent on arrival in right forearm with 0.9% NaCl at KVO. 13:50:46 Stress Test: no; N/A ? 13:50:51 Right groin area was prepped with chlora-prep and draped in sterile fashion 13:50:55 Alarms reviewed by R. N. 13:50:55 Sharps counted by scrub and verified by R.N. 13:50:56 Physician arrived 13:51:00 --------ALL STOP TIME OUT------ 13:51:01 Final Timeout: patient, procedure, and site verified with staff and physician. All members of the team are in agreement. 13:51:03 Right groin site verified by team. 13:51:08 Fire Safety Assessment: A--An alcohol-based skin anteseptic being used preoperatively., C--Open oxygen or nitrous oxide is being used., D--An ESU, laser, or fiber-optic light is being used. 13:51:14 Physical assessment completed. ASA score P 4 - A patient with severe systemic disease that is a constant threat to life as per Hussein Leach MD. 13:51:20 5) <15 or on dialysis Very severe, or end stage kidney failure. 13:51:23 Maximum allowable contrast dose (3.7 X eGFR X 0.75)10 ml. 13:51:31 Sedation plan: IV Moderate Sedation Medication:Versed, Fentanyl 13:51:36 Use device set Femoral Dx 13:51:38 ACIST Syringe (46856) opened to sterile field. 13:51:39 Bag Decanter () opened to sterile field. 13:51:39 Medline Cath Pack ([id number]) opened to sterile field. 13:51:41 ACIST Hand Control (13229) opened to sterile field. 13:51:42 Versed 1 mg I.V. was administered by Brooke Walls RN; for sedation; Verbal order read back and verified. 13:51:42 ACIST Manifold (08959) opened to sterile field. 13:51:43 DIAGNOSTIC Multipack 5Fr catheter set (HH4232) opened to sterile field. 13:51:44 SHEATH 5FR [place] (WNS632) opened to sterile field. 13:51:51 Fentanyl 50 mcg I.V. was administered by Brooke Walls RN; for sedation ; Verbal order read back and verified. 13:51:53 Procedure started. 13:51:59 Local anesthetic to right femoral artery with Lidocaine 2% by Hussein Rascon MD.INITIAL ACCESS ONLY 13:52:12 A 5 Fr sheath was inserted into the Right Femoral artery 13:52:52 A MULTIPACK JL 4.0 5Fr catheter was advanced over the wire and used for Left Coronary Angiography. 13:52:55 LCA angiography performed. 13:53:01 Injector settings: Ml/sec: 3, Volume: 6, 13:54:59 Catheter removed. 13:55:10 Zero performed for pressure channel P1 13:55:32 A MULTIPACK 3DRC 5Fr catheter was advanced over the wire and used for Right Coronary Angiography. 13:55:36 Effectiveness of Versed delivered @ 13:51:42 is: Mostly sleeping 13:55:38 Effectiveness of Fentanyl delivered @ 13:51:51 is: Mostly sleeping 13:56:07 RCA angiography performed. 13:56:12 Injector settings: Ml/sec: 3, Volume: 6, 13:56:15 Catheter removed. 13:56:22 A MULTIPACK Pigtail 5 Fr catheter was advanced over the wire and used for LV Angiography. 13:56:27 Injector settings: Ml/sec: 5, Volume: 15, 13:56:33 LV gram done using CALDERÓN 13:57:50 EF : 15 % 13:57:53 LV hemodynamics recorded. 13:59:05 Lab Result : BUN 39 mg/dl 13:59:05 Lab Result : Hematocrit 29.9 % 13:59:05 Lab Result : eGFR NONAFRICAN 10 ml/min 13:59:05 Lab Result : Creatinine 5.9 mg/dl 13:59:05 Lab Result : Hemoglobin 9.3 g/dl 14:00:28 EXOSEAL 5Fr (EX500) opened to sterile field. 14:00:29 Tegaderm 4 x 4 (1626W) opened to sterile field. 14:00:40 Lab results completed and on chart. 14:00:57 Sheath removed intact; hemostasis achieved with Exoseal to the Right Femoral artery. 14:01:00 Procedure ended.(Physican Out) 14:01:44 Contrast amount:Isovue 300 67ml. 14:01:48 Maximum allowable dose exceeded? No. 14:01:58 Fluoroscopy time 01.90 minutes. 14:02:04 Fluoroscopy dose: 606 mGy 14:02:04 Flurop Dose total: 606 14:02:14 Dose Area Product 63271 mGy/cm. 14:02:16 Sharps counted by scrub and verified by R.N. 14:08:18 Risk of Mortality: 0.7 14:08:23 Risk of blood transfusion: 20.4 14:08:28 Risk of LESLY: 8.2 14:08:43 Post-op/insertion site Right Femoral artery dressed using a 4 x 4 and Tegaderm. 14:08:48 Post right femoral artery:stable 14:08:53 Post-procedure physical assessment completed. ASA score P 4 - A patient with severe systemic disease that is a constant threat to life as per Hussein Leach MD. 14:08:58 Post procedure rhythm: unchanged. 14:09:01 Estimated blood loss: 5 ml 14:09:03 Post procedure instruction explained to patient.Patient verbalizes understanding. 14:09:04 Patient needs reinforcement of post procedure teaching. 14:10:06 Procedure type changed to Cath procedure, Diagnostic procedure, LHC, C w/Coronaries, Sedation Charges, Moderate Sedation up to 15 minutes 14:10:08 Procedure and supply charges have been captured, reviewed, submitted an d are correct. 14:10:33 Procedure Complication : No complications 14:10:36 Vital chart was stopped 14:10:45 [facility] Findings: MVD- MD will discuss options w/ pt 14:10:49 Operative report dictated upon procedure completion. 14:10:50 See physician's report for complete and final results. 14:10:53 Report given to Pre/Post Procedure Room. 14:10:58 Patient transfered to Pre/Post Procedure Room with Stretcher. 14:11:01 Procedure ended. 14:11:01 Full Disclosure recording stopped 14:11:04 End room use (Document Last) Device Usage Item Name Manufacture Quantity Catalog Hospital Part Current Minimal L ot# / Number Charge Number Stock Stock Serial# Code ACIST Acist 1 07069 185070 748705 [id number] 20 Syringe Medical (83669) Systems Inc Bag Microtek 1 2001S 881728 12272 488208 5 Decanter Medical Inc. () Medline Medline 1 [id number] 787709 56680 290800 5 Cath Pack ([id number]) ACIST Hand Acist 1 54264 059428 976259 951815 5 Control Medical (34788) Systems Inc ACIST Acist 1 97015 766085 685727 025464 5 Manifold Medical (36163) Systems Inc DIAGNOSTIC Cardinal 1 FX2898 879108 59955 040354 30 Multipack Health 5Fr catheter set (PR2481) SHEATH 5FR Terumo 1 KLM080 040165 754790 072767 5 [place] (QTB371) MULTIPACK Cardinal 1 404221 5 JL 4.0 5Fr Health catheter EMERALD Cardinal 1 502-455 551771 812766 749626 5 Guide Wire [facility] (502-455) MULTIPACK Cardinal 1 395650 5 3DRC 5Fr Health catheter MULTIPACK Cardinal 1 500529 5 Pigtail 5 Health Fr catheter EXOSEAL 5Fr Cardinal 1 EX500 704702 084547 072734 10 (EX500) Health Tegaderm 4 3M 1 1626W 769264 582554 599059 5 x 4 (1626W) Signature Audit [place] Stage Time Signature Unsigned Intra-Procedure 10/12/2019 Jesika 2:11:34 PM Hiram RT(R) (CV) Intra-Procedure 10/12/2019 Brooke Walls 2:12:05 PM RN Intra-Procedure 10/12/2019 Hussein Garcia 2:12:27 PM Abiodun [facility] [address] [place] [address]
[2019-10-12] MEDS ORDERED: COREG 3.1253.125 MG PO (11:28)
[2019-10-12] MEDS ORDERED: CATAPRES0.2 MG PO (11:29)
[2019-10-12] MEDS ORDERED: FUROSEMIDE40 MG PO (11:31)
[2019-10-12] MEDS ORDERED: LEVOCETIRIZINE PO (11:34)
[2019-10-12] MEDS ORDERED: COZAAR100 MG PO (11:36)
[2019-10-12] MEDS ORDERED: NORVASC5 MG PO (11:39)
[2019-10-12 13:29] LABS: BASOPHILS 0.5 % (0-2); EOSINOPHILS 0 % (0-7); HEMATOCRIT 29.9 % (42.0-54.0); HEMOGLOBIN 9.3 g/dL (13.5-17.5); IMMATURE GRANULOCYTES 0.1 % (0-5); LYMPHOCYTES 10.4 % (15-50); MCH 30.1 pg (26.0-34.0); MCHC 31.1 g/dL (31.0-37.0); MCV 96.8 fL (80.0-100.0); MEAN PLATELET VOLUME 9.7 fL (7.4-10.4); MONOCYTES 10.2 % (2-11); NEUTROPHILS 78.8 % (40-80); PLATELET COUNT 458 10x3/uL (130-400); RBC 3.09 10x6/uL (4.20-6.10); RDW 18.7 % (11.5-14.5); WBC 8.3 10x3/uL (4.8-10.8)
[2019-10-12 13:33] LABS: ANION GAP 15.6 mmol/L (8-16); CALCIUM 8.7 mg/dL (8.5-10.1); CARBON DIOXIDE 26.1 mmol/L (21.0-32.0); CHOL - HDL RATIO 2.5 ratio (2.3-4.9); CREATININE - SERUM 5.9 mg/dL (0.6-1.3); LDL-HDL RATIO 1.3 ratio (1.5-3.5); POTASSIUM - SERUM 3.7 mmol/L (3.5-5.1)
--- NOTE | 2019-10-12 14:20 | NUR ---
PT ARRIVED BY STRETCHER. PLACED ON MONITORS. ASSESSMENT COMPLETED. VSS AT THIS TIME. CALL LIGHT WITHIN REACH.
--- NOTE | 2019-10-12 14:34 | NUR ---
DR. MORA ROUNDED TO SPEAK WITH PT, BUT HE IS STILL SEDATED AT THIS TIME. VSS. RIGHT GROIN DRESSING C/D/I. NO S/S OF HEMATOMA NOTED. CALL LIGHT WITHIN REACH.
--- NOTE | 2019-10-12 14:43 | NUR ---
1/2 AMP D50 PUSHED PER MD ORDERS. TOLERATED WELL. VSS AT THIS TIME. PT EASILY AROUSED FROM SLEEP. DENIES NAUSEA/PAIN AT THIS TIME. CALL LIGHT WITHIN REACH.
--- NOTE | 2019-10-12 15:13 | NUR ---
RECHECK FSBS IS 81. PT RESTING COMFORTABLY. EASILY AROUSED FROM SLEEP. VSS AT THIS TIME. CALL LIGHT WITHIN REACH. RIGHT GROIN DRESSING C/D/I. NO S/S OF HEMATOMA NOTED. RIGHT PEDAL PULSE WEAK, BUT PALPABLE AND RIGHT LEG WARM TO TOUCH.
--- NOTE | 2019-10-12 15:26 | NUR ---
RIGHT GROIN DRESSING C/D/I. NO S/S OF HEMATOMA NOTED. CALL LIGHT WITHIN REACH. HEAD OF BED INC TO 30 DEGREES. TOLERATED WELL. VSS AT THIS TIME. SET UP WITH SANDWICH TRAY AND JUICE. DENIES NAUSEA/PAIN AT THIS TIME.
--- NOTE | 2019-10-12 15:35 | NUR ---
CALLED AND SPOKE WITH PT'S . UPDATED HER ON PT'S STATUS AND PLANS TO MOVE PT TO ROOM CVICU 2. SHE VOICED UNDERSTANDING. GAVE HER PHONE NUMBER TO CVICU NURSE'S STATION.
--- NOTE | 2019-10-12 16:03 | NUR ---
RIGHT GROIN DRESSING C/D/I. NO S/S OF HEMATOMA NOTED.
--- NOTE | 2019-10-12 16:03 | NUR ---
REPORT CALLED TO KAYLEIGH CR RN. DR. BLAKE ROUNDED AND SPOKE WITH PT AND UPDATED HIM ON PLAN OF CARE.
--- NOTE | 2019-10-12 16:20 | NUR ---
PT TAKEN OVER BY WHEELCHAIR TO ROOM CV02. NO S/S OF DISTRESS NOTED. ALL BELONGINGS AT BEDSIDE WITH PT. BEDSIDE HANDOFF GIVEN TO KAYLEIGH CR RN. RIGHT GROIN DRESSING C/D/I. NO S/S OF HEMATOMA NOTED.
--- NOTE | 2019-10-12 19:00 | NUR ---
Report received from off going RN. Patient resting in bed quietly with no signs and symptoms of distress noted. Bilateral groin soft to palpitation and no signs or symptoms of a hematoma noted. Bilateral feet pulses palpable. Patient requested water it was provided. Vital signs stable call light in reach we will continue plan of care.
--- NOTE | 2019-10-12 23:00 | NUR ---
REASSESSMENT COMPLETED. SEE FLOW SHEET. WILL CONT POC.
[2019-10-13] VITALS (35 sets, daily range): BP systolic 109–182; BP diastolic 63–104; Ht 177.8 cm; Wt 69.6 kg
--- NOTE | 2019-10-13 07:00 | NUR ---
RECEIVED BEDSIDE REPORT ON PATIENT AND ASSUMED CARE OF PATIENT. PATIENT ALERT AND ORIENTED X 4, SITTING UP ON SIDE OF BED C/O DYSPNEA, BBS - CRACKLES, DIMINISHED IN THE BASES, SPO2 - 98% ON 2 LPM [address] WITH 1ST DEGREE BLOCK, RATE 102, WITH PACS NOTED. IV 22 GA TO RIGHT FA NSL, HEMISPLIT DIALYSIS CATHETER TO RIGHT SUBCLAVIAN. VOIDS 200 UOP KANDI CLEAR. HEAD TO TOE ASSESSMENT COMPLETED.
--- NOTE | 2019-10-13 07:46 | NUR ---
DR. MORA AT ROOM UPDATED AND EXAMINES PATIENT. TO PLACE IABP TOMORROW AND DIALYSIS TODAY AND THEN CABG LATER THIS WEEK.
--- NOTE | 2019-10-13 07:55 | NUR ---
LAB AT ROOM TO DRAW BLOOD FOR LABS.
[2019-10-13 08:25] LABS: BASOPHILS 0.3 % (0-2); EOSINOPHILS 0 % (0-7); HEMATOCRIT 33.1 % (42.0-54.0); HEMOGLOBIN 10.1 g/dL (13.5-17.5); IMMATURE GRANULOCYTES 0.1 % (0-5); LYMPHOCYTES 9.2 % (15-50); MCH 30.4 pg (26.0-34.0); MCHC 30.5 g/dL (31.0-37.0); MEAN PLATELET VOLUME 9.9 fL (7.4-10.4); NEUTROPHILS 81.4 % (40-80); PLATELET COUNT 399 10x3/uL (130-400); RBC 3.32 10x6/uL (4.20-6.10); RDW 18.7 % (11.5-14.5); WBC 9.3 10x3/uL (4.8-10.8)
[2019-10-13 08:31] LABS: ALBUMIN 3.1 g/dL (3.4-5.0); BILIRUBIN - TOTAL 0.45 mg/dL (0.2-1.3); CALCIUM 8.7 mg/dL (8.5-10.1); CARBON DIOXIDE 22.1 mmol/L (21.0-32.0); CREATININE - SERUM 6.3 mg/dL (0.6-1.3); PROTEIN - SERUM 6.3 g/dL (6.4-8.2)
[2019-10-13 08:34] LABS: ANION GAP 18.3 mmol/L (8-16); POTASSIUM - SERUM 4.4 mmol/L (3.5-5.1)
[2019-10-13 09:11] LABS: MCV 99.7 fL (80.0-100.0)
--- NOTE | 2019-10-13 09:18 | NUR ---
PATIENTS AT ROOM UPDATED AND QUESTIONS ANSWERED. VSS.
--- NOTE | 2019-10-13 11:00 | NUR ---
REASSESSMENT COMPLETED. VSS. PATIENT SITTING ON SIDE OF BED, STATES CAN'T BREATHE LAYING DOWN. STATES HE SLEEPS IN A RECLINER AT HOME.
--- NOTE | 2019-10-13 11:45 | NUR ---
PATIENT ASSISTED TO BEDSIDE CHAIR AND GIVEN DINNER TRAY.
--- NOTE | 2019-10-13 13:20 | NUR ---
DIALYSIS STARTED GOAL OF 1 L TO REMOVE.
--- NOTE | 2019-10-13 13:31 | NUR ---
SPOKE TO DR. YOON REGARDING PATIENTS BP 180/102 (122) ON DIALYSIS, ORDERS CLONIDINE 0.2 MG q4H PRN FOR SYSTOLIC >170.
--- NOTE | 2019-10-13 14:03 | NUR ---
DIALYSIS ONGOING, TOLERATING WELL.
--- NOTE | 2019-10-13 15:00 | NUR ---
REASSESSMENT COMPLETE. PATIENT RESTING QUIETLY SITTING UP IN CHAIR, VSS. EASILY AROUSED BY VOICE. DIALYSIS ONGOING, TOLERATING WELL.
--- NOTE | 2019-10-13 15:28 | NUR ---
DR. FOSTER NOTIFIED OF CONSULT, STATES WILL SEE TOMORROW BUT TO USE BIPAP FOR SOB 04/29/40. RT NOTIFIED.
--- NOTE | 2019-10-13 16:11 | NUR ---
DIALYSIS ALMOST COMPLETE, PATIENT BREATHING EASIER, VSS. TOLERATED WELL.
--- NOTE | 2019-10-13 16:30 | NUR ---
DIALYSIS COMPLETED 1 L REMOVED.
--- NOTE | 2019-10-13 16:47 | NUR ---
PATIENT GIVEN DINNER TRAY. VSS. NO NEEDS AT THIS TIME. VISITING WITH SON.
--- NOTE | 2019-10-13 17:50 | NUR ---
PATIENT ATE APPROXIMATELY 30% OF DINNER. ASSISTED TO BATHROOM SMALL BM AND VOIDED 150 ML OF KANDI CLEAR UOP.
--- NOTE | 2019-10-13 19:00 | NUR ---
SHIFT ASSESSMENT COMPLETED. PT CARE ASSUMED, MONITORS ON AND WORKING, VITALS STABLE. PT AWAKE AND ALERT, CALL LIGHT WITHIN REACH, SEE FLOW SHEET FOR FURTHER DETAILS. WILL CONTINUE TO OBSERVE.
--- NOTE | 2019-10-13 19:02 | MORECARE ---
CASE MANAGEMENT DISCHARGE SUMMARY PATIENT: GILDA CONTRERAS UNIT: [id number] ADM DATE: 10/12/19 AGE: 79 : [birth year] SEX: M ROOM/BED: [facility] AUTHOR: TATY,DOC PHYSICIAN: REFERRING PHYSICIAN: RAH BLAKE MD DATE OF SERVICE: 10/13/19 Discharge Plan Patient Name: GILDA CONTRERAS Facility: [facility]:[place] : 1940 Planned Disposition: Home Anticipated Discharge Date: Discharge Date: Expected LOS: Initial Reviewer: [email or web address] Initial Review Date: 10/12/2019 Generated: 10/13/19 8:02 pm Comments DCP- Discharge Planning Updated by [email or web address]: Shirlene Gallardo on 10/13/19 6:[address] Patient Name: GILDA CONTRERAS Admission Status: Elective Accout number: [id number] Admission Date: 10-12-2019 : 1940 Admission Diagnosis: Attending: RAH BLAKE Current LOS: 1 Anticipated DC Date: Planned Disposition: Home Primary Insurance: MEDICARE A & B Discharge Planning Comments: CM met with patient at bedside after explaining CM role and obtaining verbal consent. Patient lives at home with his where he is independent with his care and plans to return there upon discharge. Patient feels this would be a safe discharge. CM discussed availability / needs of home health and medical equipment. Patient states if he needs HH he wants [facility] in [place] BALJINDER signed. Patient has dialysis MWF in [place] @ 0600. CM will notify Yudi with patient pathways of admission. Patient denies any discharge needs at this time. Patient states he will have his family drive him home upon discharge. CM will continue to follow and assist as needed with discharge planning / needs. Emergency Department Director: Shirlene Gallardo DCPIA - Discharge Planning Initial Assessment Updated by [email or web address]: Shirlene Gallardo on 10/13/19 6:59 pm * Is the patient Alert and Oriented? Yes * How many steps to enter\exit or inside your home? * PCP ELEAZAR * Pharmacy [facility] [place] * Preadmission Environment Home with Family * ADLs Independent * Equipment None * List name and contact numbers for known caregivers / representatives who currently or will assist patient after discharge: SANDIE CONTRERAS - SPOUSE - [phone] * Verbal permission to speak to the caregivers and representatives has been obtained from the patient. Yes * Community resources currently utilized None * Additional services required to return to the preadmission environment? No * Can the patient safely return to the preadmission environment? Yes * Has this patient been hospitalized within the prior 30 days at any hospital? No Patient Name: GILDA CONTRERAS Page 19099 at 1902 All edits/amendments must be made on the electronic document DICTATION DATE: 10/13/191901 QUALITY CONTROL PROJECTIONIST: WILLIAM 10/13/191901 RPT#: [id number] DC DATE: STATUS: ADM IN [facility] [address] [place] [address] END OF REPORT
--- NOTE | 2019-10-13 21:00 | NUR ---
PT SITTING UP ON SIDE OF BED TALKING ON CELL PHONE, PT AWAKE AND ALERT, MONITORS ON AND WORKING, VITALS STABLE, CALL LIGHT WITHIN REACH, WILL CONTINUE TO OBSERVE.
--- NOTE | 2019-10-13 23:00 | NUR ---
PT LYING IN BED RESTING, MONITORS ON AND WORKING, CALL LIGHT WITHIN REACH, VITALS STABLE, SEE FLOW SHEET FOR FURTHER DETAILS. WILL CONTINUE TO OBSERVE.
[2019-10-14] VITALS (25 sets, daily range): BP systolic 96–158; BP diastolic 39–85
--- NOTE | 2019-10-14 01:03 | NUR ---
RIGHT FOREARM PIV INFILTERATED. PIV PLACED IN RIGHT THUMB BY CHARGE NURSE, TEGADERM IN PLACE AND IV ABT INFUSING, MONITORS ON AND WORKING, VITALS STABLE, CALL LIGHT WITHIN REACH, WILL CONTINUE TO OBSERVE.
--- NOTE | 2019-10-14 03:00 | NUR ---
PT SITTING UP ON SIDE OF BED, PT DENIES ANY COMPLAINTS OF PAIN OR DISCOMFORT AT THIS TIME, CALL LIGHT WITHIN REACH, WILL CONTINUE TO OBSERVE.
--- NOTE | 2019-10-14 05:00 | NUR ---
PT LYING IN BED RESTING, MONITORS ON AND WORKING, VITALS STABLE, CALL LIGHT WITHIN REACH, WILL CONTINUE TO OBSERVE.
--- NOTE | 2019-10-14 07:44 | NUR ---
NOTED PT HAD REFUSED AM LABS STATING HE WANTED TO WAIT UNTIL DIALYSIS CAME BY TO HAVE LABS DONE. DR MORA NOTIFIED OF THIS, STATED OKAY TO WAIT UNTIL DIALYSIS TO DRAW LABS.
--- NOTE | 2019-10-14 08:04 | OP ---
PATIENT NAME: GILDA CONTRERAS MEDICAL RECORD: [id number] :[birth year] LOCATION:[facility] ADMISSION DATE:10/12/19 SURGEON: RAH BLAKE MD DATE OF OPERATION: 10/12/2019 PROCEDURE: Left heart catheterization, selective coronary angiography, right femoral artery approach. CATHETERS: A 5-Slovak sheath, 5/4 left and right [place], 5/4 pig. The procedure was well tolerated and the patient returned to cornelius, sheath removed. ExoSeal device placed. FINDINGS: Left ventriculography in 30-degree CALDERÓN view shows marked global hypokinesis with LV function reduced area of 20%. LVEDP is elevated at 20 mmHg. CORONARY ANATOMY: LEFT MAIN: Left main is free of disease. LAD: Has a severe diffuse stenosis proximally with this most critical of 90% distal right takeoff of first diagonal with excellent target distally. CIRCUMFLEX: Circumflex appears to have a separate ostium and has a 90% stenosis, somewhat diffuse in its mid portion. Right coronary is totally occluded, fills via left to right collaterals. IMPRESSION: Multivessel coronary artery disease, decreased LV systolic function. Case was discussed with Dr. Guzman in detail. Certainly represent high risk for surgery; however, best possibility for complete revascularization. We will plan on admission to CV ICU, interatrial balloon pump placement preoperatively. Nephrology will be consulted perioperatively with dialysis. Further recommendations based on above. TRANSINT:[id number] Voice Confirmation ID: [id number] DOCUMENT ID: [id number] RAH BLAKE MD at 0804 CC: [id number] DICTATION DATE: 10/12/19 1618 AIRPORT ELECTRICIAN: 10/13/19 0135 ADM IN [facility] [address] [place] [address]
--- NOTE | 2019-10-14 08:04 | EC ---
PATIENT:GILDA CONTRERAS DATE OF SERVICE: 10/12/19 SEX: M MEDICAL RECORD: [id number] DATE OF : [birth year] LOCATION:[place] [address] AGE OF PATIENT: 79 ADMISSION DATE: 10/12/19 REFERRING PHYSICIAN: INTERPRETING PHYSICIAN: RAH BLAKE MD ECHOCARDIOGRAM REPORT ECHO CHARGES 4 ECHO COMPLETE Date: 10/12/19 CLINICAL DIAGNOSIS: CHF/DYSPNEA ON EXERTION ECHOCARDIOGRAPHIC MEASUREMENTS (adult normal given) AC root (d.<3.7cm) 3.2 cm LV Septum d (<1.2 cm> 1.3 cm Valve Excursion 1.2 cm LV Septum (systole) 1.4 cm Left Atria (s.<4.0cm> 5.4 cm LVPW d(<1.2cm) 1.4 cm RV (d.<2.3cm) 4.0 cm LVPW (sytole) 1.6 cm LV diastole(<5.6CM) 5.2 cm MV E-F(>70mm/sec) cm LV systole 4.3 cm LVOT Diameter 1.7 cm MV exc.(>10mm) 1.7 cm Est.ejection fraction (50-75%) % DOPPLER: LVIT cm/sec A 36.0 cm/sec E 113.0 cm/sec LA cm/sec RVSP 31 mmHg LVOT 122 cm/sec AOP1/2T m/s Asc. Ao 184 cm/sec RVOT 63 cm/sec RA cm/sec PA 92 cm/sec AV Gradient Peak 13.60mmHg AV Mean 7.37 mmHg AV Area 2.3 cm MV Gradient Peak 7.35 mmHg MV Mean 2.11 mmHg MV Area cm COMMENTS: Quality Control Analyst: 2 BECCA ALMANZA Director Translation: 3 Dr. Tobar TAPE# PACS Pericardial Effusion N DATE OF SERVICE: Adequate 2D, color flow imaging, spectral Doppler, and M-Mode. Mild LVH. LV internal dimensions are normal. LV is globally hypokinetic with reduced EF, estimated at 20% to 25%. Aortic valve sclerosis without stenosis by Doppler interrogation. Left atrium is dilated 5.4 cm. Mitral valve thickened. Moderate MR. Right-sided chambers are grossly normal. Mild TR. TRANSINT:[id number] Voice Confirmation ID: [id number] DOCUMENT ID: [id number] ECHOCARDIOGRAM REPORT [id number] GILDA CONTRERAS GREGORY A MD at 0804 CC: [id number] DICTATION DATE: 10/12/19 1641 DRUG SAFETY ASSISTANT: 10/13/19 0240 ADM IN [facility] [address] [place] [id number]
--- NOTE | 2019-10-14 08:22 | NUR ---
UP IN CHAIR IN ROOM AT THIS TIME. VSS. NO ACUTE DISTRESS NOTED. PT HAD REMOVED MONITOR EQUIPMENT WHILE WALKING IN ROOM. MONITORING EQUIPMENT REPLACED. NPO FOR IAPB TODAY. WILL CONTINUE PLAN OF CARE.
--- NOTE | 2019-10-14 09:23 | NUR ---
NO ACUTE DISTRESS NOTED. PT UP IN CHAIR AT THIS TIME. VSS. DENIES ANY NEEDS. WILL CONTINUE PLAN OF CARE.
[2019-10-14 10:37] LABS: HEMATOCRIT 29.6 % (42.0-54.0); HEMOGLOBIN 9.1 g/dL (13.5-17.5); MCH 30.1 pg (26.0-34.0); MCHC 30.7 g/dL (31.0-37.0); PLATELET COUNT 347 10x3/uL (130-400); RBC 3.02 10x6/uL (4.20-6.10); RDW 18.3 % (11.5-14.5); WBC 9.1 10x3/uL (4.8-10.8)
--- NOTE | 2019-10-14 10:37 | NUR ---
CURRENTLY RECIEVING DIALYSIS AT THIS TIME. VSS. NO ACUTE DISTRESS NOTED. WILL CONTINUE PLAN OF CARE.
[2019-10-14 10:43] LABS: APTT 52.1 SECONDS (22.8-39.4); INR 1.16 (0.85-1.17); PROTIME 14.8 SECONDS (11.6-15.0)
[2019-10-14 10:56] LABS: ALBUMIN 2.9 g/dL (3.4-5.0); ANION GAP 10.8 mmol/L (8-16); BILIRUBIN - TOTAL 0.61 mg/dL (0.2-1.3); CALCIUM 8.7 mg/dL (8.5-10.1); CARBON DIOXIDE 27.6 mmol/L (21.0-32.0); CREATININE - SERUM 5.7 mg/dL (0.6-1.3); PHOSPHOROUS 6.1 mg/dL (2.5-4.9); POTASSIUM - SERUM 4.4 mmol/L (3.5-5.1); PROTEIN - SERUM 6.4 g/dL (6.4-8.2); T4 THYROXIN - FREE 0.98 ng/dL (0.76-1.46); THYROID STIMULATING HORMONE 1.44 uIU/mL (0.36-3.74); URIC ACID 4.1 mg/dL (2.6-7.2); VANCOMYCIN - RANDOM 47.4 ug/mL (10.0-20.0)
--- NOTE | 2019-10-14 11:13 | NUR ---
UP IN CHAIR RECIEVING DIALYSIS AT THIS TIME, TOLERATING WELL. VSS. NO ACUTE DISTRESS NOTED. WILL CONTINUE PLAN OF CARE.
--- NOTE | 2019-10-14 13:41 | NUR ---
UP IN CHAIR RECIEVING DIALYSIS AND VISITING WITH VISITOR. VSS. NO ACUTE DISTRESS NOTED. WILL CONTINUE PLAN OF CARE.
[2019-10-14 14:19] LABS: EOSINOPHILS 7 % (0-7); LYMPHOCYTES 12 % (15-50); MONOCYTES 7 % (2-11); NEUTROPHILS 74 % (40-80); PLATELET ESTIMATE NORMAL
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
--- NOTE | 2019-10-14 15:19 | NUR ---
LEFT AT THIS TIME WITH CARDIAC TEAM FOR IABP PLACEMENT. PT DENIES ANY NEEDS. VSS. WILL CONTINUE PLAN OF CARE.
--- NOTE | 2019-10-14 16:12 | NUR ---
PT IN OR, WILL ADMIN ANTIBIOTICS WHEN PT RETURNS.
--- NOTE | 2019-10-14 16:51 | NUR ---
PT RETURNED FROM OR AT THIS TIME WITH IABP TO RT GROIN. SITE CDI. PT LETHARGIC, BUT AWAKENS WHEN SPOKEN TO AND ANSWERS QUESTIONS APPROPRIATELY. VSS. WILL CONTINUE PLAN OF CARE.
--- NOTE | 2019-10-14 17:53 | NUR ---
NO ACUTE DISTRESS NOTED. VSS. RT SITE WDL WIHTOUT S/S HEMATOMA, EDEMA, DRAINAGE. PT C/O FEELING COLD, TEMP 98.3, WARM BLANKET PROVIDED, PT STATED HE FEELS BETTER. VSS. WILL CONTINUE PLAN OF CARE.
[2019-10-14 18:00] LABS: HEMATOCRIT 31.3 % (42.0-54.0); MCH 30.7 pg (26.0-34.0); MCHC 31.9 g/dL (31.0-37.0); MEAN PLATELET VOLUME 10.2 fL (7.4-10.4); RBC 3.26 10x6/uL (4.20-6.10); WBC 10.5 10x3/uL (4.8-10.8)
--- NOTE | 2019-10-14 18:43 | NUR ---
DR MORA NOTIFIED OF ABGS. NO NEW ORDERS RECIEVED.
--- NOTE | 2019-10-14 19:00 | NUR ---
SHIFT ASSESSMENT COMPLETED. PT CARE ASSUMED, MONITORS ON AND WORKING, VITALS STABLE, IABP TO RT GROIN, SITE CDI, VSS, PT AWAKE AND ALERT, CALL LIGHT WITHIN REACH, WILL CONTINUE TO OBSERVE.
[2019-10-14 19:18] LABS: INR 1.15 (0.85-1.17); PROTIME 14.7 SECONDS (11.6-15.0)
[2019-10-14 19:19] LABS: APTT 52.3 SECONDS (22.8-39.4)
--- NOTE | 2019-10-14 21:00 | NUR ---
ICE CHIPS GIVEN PER PTS REQUEST ALONG WITH CELL PHONE AND GLASSES. PT AWAKE AND ALERT, RT GROIN IABP CDI, VSS, CALL LIGHT WITHIN REACH WILL CONTINUE TO OBSERVE.
[2019-10-14 22:17] LABS: BILIRUBIN NEGATIVE (NEGATIVE); GLUCOSE 100 mg/dL (NEGATIVE); KETONE NEGATIVE (NEGATIVE); NITRITE NEGATIVE (NEGATIVE); SPECIFIC GRAVITY 1.015 (1.005-1.020); UROBILINOGEN NORMAL (NORMAL)
[2019-10-14 22:20] LABS: BACTERIA MODERATE /hpf (NEGATIVE); EPITHELIAL CELLS NSEEN /hpf (0-5); RED CELLS - URINE 0-5 /hpf (0-5)
--- NOTE | 2019-10-14 23:00 | NUR ---
PT COMPLAINING OF BACK DISCOMFORT FROM LYING FLAT AND REQUESTED PAIN MED,NO ORDERS ON JUL, PAGED MD, WAITING FOR FURTHER ORDERS. TILTED BED TO PROVIDE COMFORT AND READJUSTED PILLOW AND SHEETS AT THIS TIME. VSS, CALL LIGHT WITHIN REACH, SEE FLOW SHEET FOR FURTHER DETIALS. WILL CONTINUE TO OBSERVE.
[2019-10-15] VITALS (38 sets, daily range): BP systolic 96–156; BP diastolic 33–408
--- NOTE | 2019-10-15 | NUR ---
SPOKE WITH [facility] JAEGER CONCERNING PTS BACK DISCOMFORT, RECD ORDERS FOR PAIN MED. ST JAEGER AWARE OF SBP OF 160, NO NEW ORDERS RECD FOR THAT. MONITORS ON AND WORKING,VSS, PT AWAKE AND ALERT, CALL LIGHT WITHIN REACH, WILL CONTINUE TO OBSERVE,
--- NOTE | 2019-10-15 00:42 | NUR ---
PAIN MEDS GIVEN, PT RESTING QUITELY, WILL CONTINUE TO MONITOR.
--- NOTE | 2019-10-15 02:00 | NUR ---
PT RESTING QUITELY SINCE PAIN MEDS GIVEN, VSS, CALL LIGHT WITHIN REACH, WILL CONTINUE TO OBSERVE.
--- NOTE | 2019-10-15 03:30 | NUR ---
PT LYING IN BED, VSS, CALL LIGHT WITHIN REACH. NO CHANGES. SEE FLOW SHEET FOR FURTHER DETIALS. WILL CONTINUE TO OBSERVE.
--- NOTE | 2019-10-15 05:50 | NUR ---
OR TEAM CALLED AND STATED TO TURN HEPARIN DRIP OFF AT THIS TIME. WAITING LAB RESULTS.
[2019-10-15 06:15] LABS: BASOPHILS 0.6 % (0-2); EOSINOPHILS 1.7 % (0-7); HEMATOCRIT 30.5 % (42.0-54.0); HEMOGLOBIN 9.4 g/dL (13.5-17.5); IMMATURE GRANULOCYTES 0.1 % (0-5); LYMPHOCYTES 8.8 % (15-50); MCH 30.1 pg (26.0-34.0); MCHC 30.8 g/dL (31.0-37.0); MCV 97.8 fL (80.0-100.0); MEAN PLATELET VOLUME 9.9 fL (7.4-10.4); MONOCYTES 10.2 % (2-11); NEUTROPHILS 78.6 % (40-80); PLATELET COUNT 276 10x3/uL (130-400); RBC 3.12 10x6/uL (4.20-6.10); RDW 18.1 % (11.5-14.5); WBC 9.6 10x3/uL (4.8-10.8)
[2019-10-15 06:21] LABS: ANION GAP 12.6 mmol/L (8-16); CALCIUM 8.6 mg/dL (8.5-10.1); CARBON DIOXIDE 24.8 mmol/L (21.0-32.0); POTASSIUM - SERUM 4.4 mmol/L (3.5-5.1)
--- NOTE | 2019-10-15 06:30 | NUR ---
PT WITH OR TEAM TO SURGERY.
--- NOTE | 2019-10-15 10:02 | NUR ---
Nutrition Follow-up: CABG today. Wt: 173# (10/12) Labs reviewed Meds reviewed -Rec ADAT to renal ADA following surgery as medically feasible; if unable to advance diet within 24-48 hrs, rec initiate nutrition support. -Monitor wt. -RD following.
--- NOTE | 2019-10-15 13:12 | NUR ---
PATIENT RECEIVED TO ROOM FROM OR VIA BED, VSS. PA - 26/13, CVP - 8, ART - 129/50 (74), CRITICORE SCHILLING IN PLACE TEMP 97.5, WITH CLEAR YELLOW UOP NOTED. ART LINE, CVP AND PA LEVELED AND ZEREOED. LEFT PA/CVL IJ INFUSING PLASMOLYTE AT 100 ML/HR, NTG AT 10 MCG/MIN (3 ML/HR), CLEVIPREX AT 2 MG/HR (4 ML/HR) AND DOBUTAMINE AT 3 MCG/MIN (7.2 ML/HR), ZINACEF STARTED AT 12.8 ML/HR. REE DRAIN WITH 30 ML BLOODY OUTPUT NOTED AND CHEST TUBE X 3 TO 20 CM SUCTION NO AIR LEAK NOTED. IABP TO RIGHT GROIN 1:1. CCI 2.9 AND CO - 5.7 WITH Sv02 - 78%. RIGHT LEG HARVEST SITE WITH BANDAGE INTACT DISTAL PULSES +1 BILATERALLY TO LOWER EXTREMITIES. RIGHT ART LINE. MIDLINE INCISION DRESSING C/D/I. FSBS - 105 MG/DL. HEAD TO TOE ASSESSMENT COMPLETED. SCD AND PATRICA HOSE TO LEFT LEG.
[2019-10-15 13:39] LABS: PROTIME 17.5 SECONDS (11.6-15.0)
[2019-10-15 13:42] LABS: INR 1.45 (0.85-1.17)
--- NOTE | 2019-10-15 14:29 | NUR ---
SPOKE TO DR. YOON REGARDING PATIENTS BASE EXCESS - 3.2, HCO3 - 20.9 AND K 4.3, OK TO GIVE 1 AMP OF BICARB FROM RENAL STANDPOINT. CONTACTED DR. MORA STATES NOT TO GIVE BICARB AND TO DC BICARB AND CALCIUM REPLACEMENT ORDERS.
--- NOTE | 2019-10-15 15:47 | NUR ---
NTG AND CLEVIPREX GTT PAUSED DUE TO MEAN ON IABP 68.
--- NOTE | 2019-10-15 16:05 | NUR ---
PATIENTS AT ROOM UPDATED AND QUESTIONS ANSWERED.
--- NOTE | 2019-10-15 16:25 | NUR ---
DR. MARTINEZ AT ROOM UPDATED AND EXAMINES PATIENT.
--- NOTE | 2019-10-15 17:08 | NUR ---
DR. MORA NOTIFIED OF ABGS PH 7.27, PCO2 - 49.8, PO2 - 162.8, HCO3 - 23.1, BE - (-3.9), SPO2 - 99.2% ON SIMV RATE OF 4, RR - 24. HR 112, ST WITH 1ST AVB. CO - 7.0 ANC CCI 3.5, SV02 - 77%. PA 23/ (17).
--- NOTE | 2019-10-15 17:19 | NUR ---
DR. MORA ADVISED TO STOP VENT WEANING FOR TODAY AND START DIPROVAN FOR SEDATION. VSS. AT BEDSIDE UPDATED AND QUESTIONS ANSWERED.
--- NOTE | 2019-10-15 17:45 | NUR ---
PER DR. FOSTER TV AT 550, RATE 16 AND FIO2 AT 35%.
[2019-10-15 18:01] LABS: CARBON DIOXIDE 22.6 mmol/L (21.0-32.0); CREATININE - SERUM 5.1 mg/dL (0.6-1.3); POTASSIUM - SERUM 4.6 mmol/L (3.5-5.1)
--- NOTE | 2019-10-15 19:00 | NUR ---
REPORT RECEIVED AND CARE ASSUMED. RECEIVED PATIENT IN BED SEDATED/INTUBATED. ETT INTACT/ SECURE/ PATENT AND CONNECTED TO MECHANICAL VENT AT ORDERED SETTINGS. RT GROIN IABP INTACT WITH ECG TRIGGER,1:1. ASSESSEMTENT COMPLETED PER FLOW SHEET, SEE FOR DETAILS. MONITORS CONNECTED TO PATIENT WITH ALARMS SET. VSS. CHEST TUBES X 2 INTACT/SECURE/PATENT DRAINING BLOODY FLUID INTO COLLECTION CHAMBERS, CONNECTED TO 20 CM WALL SUCTION. ALL SURGICAL DRESSINGS C/D/I. RN AT BEDSIDE. WILL CONTINUE CURRENT POC
--- NOTE | 2019-10-15 21:30 | NUR ---
DR. MORA UPDATED ON PATIENT. NEW ORDERS RECEIVED. CONTINUE DOBUTAMINE AT SET RATE. TITRATE PRESSOR TO KEEP MAP 70
--- NOTE | 2019-10-15 23:00 | NUR ---
REASSESSMENT COMPLETED PER FLOW SHEET WITH NO CHANGES OR ACUTE DISTRESS OBSERVED. VSS. ETT INTACT/SECURE/PATENT.
[2019-10-16] VITALS (56 sets, daily range): BP systolic 88–144; BP diastolic 35–58
--- NOTE | 2019-10-16 01:00 | NUR ---
SEDATED/INTUBATED. VSS. CONT CURRENT POC
--- NOTE | 2019-10-16 03:00 | NUR ---
SEDATED/INTUBATED. REASSESSMENT COMPLETED PER FLOW SHEET, SEE FOR DETAILS. VSS. CONT CURRENT POC
--- NOTE | 2019-10-16 05:00 | NUR ---
SEDATED/INTUBATED. VSS. RN AT BEDSIDE
[2019-10-16 06:24] LABS: BASOPHILS 0.1 % (0-2); EOSINOPHILS 0 % (0-7); HEMATOCRIT 27.7 % (42.0-54.0); HEMOGLOBIN 8.7 g/dL (13.5-17.5); IMMATURE GRANULOCYTES 0.2 % (0-5); LYMPHOCYTES 5.1 % (15-50); MCH 28.9 pg (26.0-34.0); MCHC 31.4 g/dL (31.0-37.0); MEAN PLATELET VOLUME 9.9 fL (7.4-10.4); MONOCYTES 8.8 % (2-11); NEUTROPHILS 85.8 % (40-80); PLATELET COUNT 197 10x3/uL (130-400); RBC 3.01 10x6/uL (4.20-6.10); RDW 19.3 % (11.5-14.5); WBC 12.9 10x3/uL (4.8-10.8)
[2019-10-16 06:35] LABS: ALBUMIN 2.3 g/dL (3.4-5.0); ANION GAP 21.6 mmol/L (8-16); BILIRUBIN - TOTAL 0.74 mg/dL (0.2-1.3); CALCIUM 8.3 mg/dL (8.5-10.1); CARBON DIOXIDE 20.9 mmol/L (21.0-32.0); CREATININE - SERUM 5.9 mg/dL (0.6-1.3); POTASSIUM - SERUM 4.5 mmol/L (3.5-5.1); PROTEIN - SERUM 5.1 g/dL (6.4-8.2); VANCOMYCIN - RANDOM 9.4 ug/mL (10.0-20.0)
--- NOTE | 2019-10-16 10:25 | OP ---
PATIENT NAME: GILDA CONTRERAS MEDICAL RECORD: [id number] :39 LOCATION:D[id number] ADMISSION DATE:10/12/19 SURGEON: MYNOR MORA MD DATE OF OPERATION: 10/15/2019 SURGEON: Mynor Mroa MD FEED PREPARATION OPERATOR: JESSICA Petersen MD OPERATION PERFORMED: 1. Coronary artery bypass graft times 4 (left internal mammary to LAD, reverse saphenous vein from aorta to first diagonal, aorta to first obtuse marginal, aorta to the posterior descending artery). 2. Endoscopic saphenous vein harvest. PREOPERATIVE DIAGNOSIS: Coronary artery disease, chronic kidney failure, chronic hemodialysis, ischemic cardiomyopathy. POSTOPERATIVE DIAGNOSIS: Coronary artery disease, chronic kidney failure, chronic hemodialysis, ischemic cardiomyopathy, and bilateral pleural effusion. ANESTHESIA: General endotracheal anesthesia. ESTIMATED BLOOD LOSS: Total cardiopulmonary bypass with Cell Saver retransfusion, 2 platelet count, 2 FFP, and 3 packed red blood cells. COMPLICATIONS: None. SPECIMENS: 1. Sebaceous cyst, subcutaneous tissue at the lower end of the sternotomy. 2. Left internal mammary artery lymph node. COMPLICATIONS: None. CONDITION: Stable. DISPOSITION: CV ICU. OPERATIVE FINDINGS: 1. Good quality greater saphenous vein slightly thin around the knee. This is the portion that was used for the diagonal graft. 2. Serous pleural effusions 900 on the left and 1100 on the right. 3. Moderately dilated heart. 4. Transesophageal echocardiogram with 30% ejection fraction and trace mitral regurgitation prior to cardiopulmonary bypass, improved contractility 45% after separation from cardiopulmonary bypass on 5 of dobutamine. 5. Good quality left internal mammary artery to LAD was severely diseased 2.0-mm vessel. 6. First diagonal small 1.5 mm severely diseased vessel. 7. First obtuse marginal intramyocardial 2.5 mm vessel with diffuse disease. 8. Posterior descending artery severely diseased 1.5 mm vessel. OPERATIVE INDICATION: Ischemic cardiomyopathy and multivessel coronary artery disease. OPERATIVE REPORT [id number] GILDA CONTRERAS PROCEDURE IN DETAIL: The patient was brought to the operative suite. General anesthesia was obtained, the patient was prepped and draped. Greater saphenous vein harvested endoscopically, right lower extremity. Side branch divided with electrocautery. Vessels ligated proximally and distally. Bridging incisions were used to take another segment down the mid calf. Side branch divided with electrocautery and clipped. The vein was removed. Thin sites were oversewn. Side branches were tied. Leg was later irrigated and closed in 2 layers. Median sternotomy incision was made. Subcutaneous tissue was divided by electrocautery. The sternum was divided with a saw. Left hemisternum was elevated. Left pleural cavity was entered. Left internal mammary was taken down as a pedicle graft. Sternal retractor was placed. Pericardium was opened. Heparin was given. Aorta was cannulated. Dual stage venous cannula was inserted. Internal mammary clipped distally and made ready for anastomosis. The patient was placed on cardiopulmonary bypass. Sites for distal anastomosis were selected. Retrograde cardioplegia cannula was inserted. Antegrade cardioplegia cannula was inserted. The patient was cooled. Crossclamp was placed. Cardioplegia given antegrade and then retrograde and repeated at 15-minute intervals to 20 intervals during the crossclamp time. Distal anastomosis was performed in standard technique. Proximal anastomosis with single cross-clamp technique. The aortic root de-aired by removing the crossclamp after full rewarming, venting the root, tying the proximal anastomoses during the vein graft and restoring flow. Proximal and distal anastomotic sites inspected for bleeding. Single suture was used for bleeding site. The patient resumed a spontaneous rhythm. Atrioventricular pacing wires were placed. The patient was weaned from cardiopulmonary bypass and was stable. The patient was decannulated. The cannula sites were oversewn. Protamine was given. Thorough irrigation was undertaken. Hemostasis was ensured. Grafts lay appropriately. Drains were placed in the mediastinum and both pleural cavities. Pericardial fat was approximated over the great vessels internal mammary harvest site inspected for bleeding. Left chest again evacuated and irrigated and the right chest was evacuated. Sternum was closed with wires. Fascia was closed. Subcutaneous tissues were closed. Skin was closed. Dermabond was placed. The needle and sponge counts were correct. The patient was taken to ICU in stable condition. TRANSINT:[id number] Voice Confirmation ID: [id number] DOCUMENT ID: [id number] MYNOR MORA MD at 1025 CC: AMA BUSH DO and RAH BLAKE MD [id number] DICTATION DATE: 10/15/19 1320 SPORT PSYCHOLOGIST: 10/15/19 1926 ADM IN [facility] [address] [place] [address]
--- NOTE | 2019-10-16 12:47 | NUR ---
0715-RECIEVED PER FLOW [id number]-[id number] AT R LEG ATTEMPTING TO BED AND TAKE OFF BED-IABP PLACEMENT R GROIN-STRESSED TO PT TO KEEP STRAIGHT-POOR COMPREHENSION/COOPERATION FROM PT-QUESTIONED IF LEG HURTING-AUDIBLE PP AND FAINT PALPABLE-GOOD [id number] 0.25 MCG GIVEN-DIPRIVAN AT 30MCG 0820-RENAL SERVICES AT BEDSIDE-TRAVEL CONSULTANT -ORDERS RECIEVED AND NOTED-LASIX 100MG IVP GIVEN VIAL L JUGULAR-OVER 10MIN-PT ROTATED TO L SIDE-AND WEDGE PILLOWS PLACED FOR SUPPORT 0945-DR FOSTER AT BEDSIDE-DIALYSIS SET UP IN PROGRESS-REVIEWED CURRENT STATUS-DR MORA AT BEDSIDE-REVIEWED WITH DR FOSTER COURSE OF TREATMENT- IABP CHNAGED TO 1:[address] [facility]
--- NOTE | 2019-10-16 18:30 | NUR ---
1040-FENT 0.25 IVP GIVEN PREMED-3 BOLUS OF 10MG DIPRIVAN-DIRECTED BY DR MORA-DIALYSIS IN PROGRESS-ABP DECREASED TO 98/52-FLOW RATE ADJUSTED BY DIALYSIS NURSE IN RESPONSE TO DECREASE IN ABP-DOPPLERED R PP-IABP TURNED OFF-PT IN SUPINE-IABP REMOVED BY DR OMRA-PRESSURE APPLIED MANUALLY BY DR MORA-PPP WITH OFWTWED-[id number] FIRM MANUAL PRESSURE FOR 50MINS BY RN-DOPPLER PULSE OBTAINED BY DR MORA-PRESSURE MAINTAINED -DOPPLER PULSE CONFIRMED Q 5MIN DURING TIME-NO HEMATOMA/EDEMA-CLEAR TEGADERM [id number] AT 20MCG-TO MAINTAIN R LEG STRAIGHT-NO FEMSTOP ON - DIRECTED-DIALYSIS STOPPED 1340-PT AWAKE RESTLESS-R GROIN SOFT TOUCH-R PPP-DIPRIVAN OFF-CHANGED TO SIMV 6-RR 28-SKIN DISCOLOURATIONCYANOTIC-ASKED PT IF FEELS HE'S GETTING AIR-NODDED NO -NOTED RALES ABISAI BASE LUNGS-SIMV INCREASED TO 14 BY RT-PT VISIBLY RELAXED-SKIN TONE RETURNED TO [id number]-DR MORA CALLED WITH SAME-SERUM K DONE STAT 1345-DR GUPTA IN UNIT FOR CARDIOLOGY-INFORMED OF SAME-CORDARONE 150 BOLUS STARTED-RETURN CALL FROM DR MORA-AGREED WITH DR GUPTA 1400-CORDARONE AT 1MG/MIN -AFIB 88 1500-SWAN ALBERTO DISCONTINUED PER PROTOCOL-REMAINS IN AFIB 80'S 1600-RR 28-AFIB 128-RETURNED TO A/C 16-DIPRIVAN STARTED AT 5 AND INCREASED TO 30MCG/KG/MIN 174-DR MARTINEZ RENAL SERVICES AT BEDSIDE-UPDATED WITH SERIES OF EVENTS 1814-NASAL SWAB FOR MRSA SENT ORDERED
--- NOTE | 2019-10-16 19:00 | NUR ---
REPORT RECEIVED AND CARE ASSUMED. RECEIVED PATIENT IN BED, SEDATED/INTUBATED. ETT INTACT/SECURE/PATENT CONNECTED TO MECHANICAL VENT AT OREDERD SETTINGS. CHEST TUBES INTACT/ SECURE/PATENT DRAINING SMALL AMOUNT OF BLOODY DRAINAGE INTO COLLECTTION CHAMBERS. CT TO 20 CM WALL SUCTION WITH NO AIR LEAK OBSERVED. IABP INSERTION SITE CDI, SOFT WITH NO HEMATOMA OBSERVED. PATIENT TURNED AND REPOSITIONED FOR COMFORT.ORAL CARE GIVEN. ASSESSMENT COMPLETED PER FLOW SHEET WITH NO ACUTE DISTRESS OBSERVED. MONITORS CONNECTED TO PATIENT WITH ALARMS SET. VSS. CONTROLLED AFIB ON MONITOR. CONT CURRENT POC
--- NOTE | 2019-10-16 21:00 | NUR ---
SEDATED/INTUBATED. TURNED AND REPOSITIONED FOR COMFORT. ORAL CARE GIVEN. VSS.
--- NOTE | 2019-10-16 23:00 | NUR ---
REASSESSMENT COMPLETED PER FLOW SHEET WITH NO ACUTE DISTRESS OBSERVED. VSS. TURNED AND REPOSITIONED. ORAL CARE GIVEN.
--- NOTE | 2019-10-16 23:30 | NUR ---
DECREASE IN BP NOTED AFTER REPOSITIONING TO RIGHT SIDE. REPOSITIONED TO BACK AT THIS TIME. WILL MONITOR.
[2019-10-17] VITALS (46 sets, daily range): BP systolic 109–156; BP diastolic 38–92
--- NOTE | 2019-10-17 | NUR ---
BP IMPROVED 121/47 MAP 71.
--- NOTE | 2019-10-17 01:00 | NUR ---
SEDATED/INTUBATED. VSS. NO DISTRESS OBSERVED
--- NOTE | 2019-10-17 03:00 | NUR ---
TURNED AND REPOSTIONED. REASSESSMENT COMPLETED PER FLOW SHEET WITH NO ACUTE DISTRESS OBSERVED. VSS.
--- NOTE | 2019-10-17 05:00 | NUR ---
TURNED AND REPOSITIONED. ORAL CARE GIVEN. MEG DOTSON
[2019-10-17 05:47] LABS: BASOPHILS 0.2 % (0-2); EOSINOPHILS 0 % (0-7); HEMATOCRIT 26.1 % (42.0-54.0); HEMOGLOBIN 8.5 g/dL (13.5-17.5); IMMATURE GRANULOCYTES 0.2 % (0-5); LYMPHOCYTES 6.6 % (15-50); MCH 29.4 pg (26.0-34.0); MCHC 32.6 g/dL (31.0-37.0); MCV 90.3 fL (80.0-100.0); MEAN PLATELET VOLUME 9.5 fL (7.4-10.4); MONOCYTES 8.2 % (2-11); NEUTROPHILS 84.8 % (40-80); PLATELET COUNT 162 10x3/uL (130-400); RBC 2.89 10x6/uL (4.20-6.10); RDW 19.1 % (11.5-14.5); WBC 14.6 10x3/uL (4.8-10.8)
[2019-10-17 06:19] LABS: ALBUMIN 2.1 g/dL (3.4-5.0); ANION GAP 18.3 mmol/L (8-16); BILIRUBIN - TOTAL 0.58 mg/dL (0.2-1.3); CALCIUM 8.4 mg/dL (8.5-10.1); CARBON DIOXIDE 20.9 mmol/L (21.0-32.0); CREATININE - SERUM 5.5 mg/dL (0.6-1.3); POTASSIUM - SERUM 4.2 mmol/L (3.5-5.1); PROTEIN - SERUM 5.2 g/dL (6.4-8.2)
--- NOTE | 2019-10-17 10:12 | NUR ---
0700-RECIEVED PER FLOW SHEET-DIPRIVAN DECREASED TO 5MCG-SR ON MONITOR-68 RR 19--NOTED L LUNG SOUNDS-LOUD RUB 0815-NOTED HEART RATE 58-CORDARONE GTT PAUSED -DR MORA NOTIFIED OF SAME - AT BEDSIDE---ORDERS RECIEVED-PACER SET AT 80/10-DR LOPEZ CALLED REGARDING SETTING AND V/S-ORDER RECIEVED AND NOTED-NTG GTT STARTED AT 10MCG ABP 162 SYS-TITRATED FOR ABP-127/49-30MCG/KG
--- NOTE | 2019-10-17 11:46 | OP ---
PATIENT NAME: GILDA CONTRERAS MEDICAL RECORD: [id number] :39 LOCATION:[id number] ADMISSION DATE:10/12/19 SURGEON: MALI MORA MD DATE OF OPERATION: 10/16/2019 SURGEON: Mali Mora MD PROCEDURE: Percutaneous removal of intraaortic balloon pump. INDICATION: Ischemic cardiomyopathy. DESCRIPTION OF PROCEDURE: With the patient sedated and ventilated in the intensive care with a heart rate, blood pressure, and pulse oximetry monitored, the patient had Doppler right dorsalis pedis and posterior tibial pulses. Sutures were removed. Intraaortic balloon pump was removed intact and direct pressure was held with no apparent complications. TRANSINT:[id number] Voice Confirmation ID: [id number] DOCUMENT ID: [id number] MALI MORA MD at 1146 CC: [id number] DICTATION DATE: 10/16/19 1054 LEGISLATORS: 10/16/19 1319 ADM IN [place] [id number] [place] [id number]
--- NOTE | 2019-10-17 13:34 | NUR ---
1030-DR GUPTA IN UNIT-UPDATE GIVEN 1145-DR MORA IN UNIT-SPOKE WITH PT REGARDING CURRENT AND PLAN COURSE OF TREATMENT-QUESTIONS ADDRESSED-ABG REPEATED-PT EXTUBATED TO 4L BY RT DIRECTED BY DR MORA-R RADIAL ESTHER D/C'D-PER PROTOCOL-R WRIST IV -NOT PATENT AND REMOVED-NIBP IN L ARM DONE AT DIRECTION OF DR MORA-PLCED NIBP TO L THIGH-RESERVE L ARM ?FISTULA?-NO BRUIT /TRILL OR FELT- STATED STILL IN PLACE IN R RADIAL AREA WITH HOPE TO USE AT SOME TIME-RESERVED PER FISTULA PROTOCOL 1330-ASSISTED PT WITH ICE CHIPS AND H2O-NO DIFFICULTY SWALLOWING-NORCO 5 PO GIVEN AND APRESOLINE 10 PO GIVEN-NTG DECREASED TO 8 ML/H
--- NOTE | 2019-10-17 18:03 | NUR ---
1515-DR MARTINEZ AT [facility]-STATUS REPORT GIVEN-REQUESTED L ARM RESTRICTION/RESERVE-HEMOSPLIT TO BE USED FOR EMERGENT ONLY-CHECK WITH DR MORA IF MIDLINE IN AM -CONTINUE ZOSYN-DR MORA NOTIFIED-DIRECTION GIVEN-DR MARTINEZ INFORMED OF SAME- 1600-L JUGULAR CORDIS D/C'D PER PROTOCOL-TOLERATED WELL BY PT- AT BEDSIDE 1630-NORCO 5MG PO GIVEN FOR PAIN 01/02- AT BEDSIDE-UPDATE GIVEN-NO IV ACCESS AT THIS TIME
--- NOTE | 2019-10-17 19:00 | NUR ---
REPORT RECEIVED. RECEIVED PATIENT IN BED, RESTING WITH EYES CLOSED. EASILY ROUSED AND ALERT. ORIENTED X 4. ASSESSMENT COMPLETED PER FLOW SHEET WITH NO AUTE DISTRESS OBSERVED. MONITORS CONNECTED TO PATIENT WITH ALARMS SET. VSS. NSR ON MONITOR. CHEST TUBES INTACT/SECURE/PATENT DRAINING SMALL AMOUNT OF BLOODY DRAINAGE INTO COLLECTTION CHAMBERS. CT TO 20 CM WALL SUCTION WITH NO AIR LEAK VISIBLE. PATIENT INSTRUCTED ON INCENTIVE SPIROMETER AND ASSISTED WITH USE, PULLED 500 WITH WEAK EFFORT. INSTRUCTED TO COUGH AND DEEP BREATHE, PATIENT COMPLIANT WITH GOOD EFFORT. REPOSTIONED IN BED. MEG WELL. CALL LIGHT IN REACH. WILL CONTINUE CURRENT POC
--- NOTE | 2019-10-17 23:00 | NUR ---
RESTING WITH EYES CLOSED, EASILY ROUSED AND ALERT. VSS. REASSESSMENT COMPLETED PER FLOW SHEET WITH NO ACUTE DISTRESS OBSERVED. CALL LIGHT IN REACH. REPOSITIONED FOR COMFORT. MEG WELL
[2019-10-18] VITALS (23 sets, daily range): BP systolic 96–142; BP diastolic 39–79
--- NOTE | 2019-10-18 01:00 | NUR ---
RESTING WITH EYES CLOSED, EASILY ROUSED AND ALERT. VSS
--- NOTE | 2019-10-18 03:00 | NUR ---
RESTING WITH EYES CLOSED, EASILY ROUSED AND ALERT. REASSESSEMENT COMPLETED PER FLOW SHEET WITH NO ACUTE DISTRESS OBSERVED. VSS. CALL LIGHT IN REACH
--- NOTE | 2019-10-18 05:00 | NUR ---
RESTING WITH EYES CLOSED, EASILY ROUSED AND ALERT. VSS. REPOSITONED FOR COMFORT
--- NOTE | 2019-10-18 06:00 | NUR ---
ASSISTED UP TO BEDSIDE CHAIR WITH ASSIST X 2. MEG WELL. VSS.
[2019-10-18 06:23] LABS: ALBUMIN 2.3 g/dL (3.4-5.0); ANION GAP 17.8 mmol/L (8-16); BILIRUBIN - TOTAL 0.51 mg/dL (0.2-1.3); CALCIUM 9.3 mg/dL (8.5-10.1); CARBON DIOXIDE 25.2 mmol/L (21.0-32.0); PROTEIN - SERUM 6.3 g/dL (6.4-8.2)
[2019-10-18 06:24] LABS: CREATININE - SERUM 7.1 mg/dL (0.6-1.3)
[2019-10-18 06:47] LABS: BASOPHILS 0.3 % (0-2); EOSINOPHILS 0 % (0-7); HEMATOCRIT 29.9 % (42.0-54.0); HEMOGLOBIN 9.5 g/dL (13.5-17.5); IMMATURE GRANULOCYTES 0.1 % (0-5); LYMPHOCYTES 6.7 % (15-50); MCH 29.3 pg (26.0-34.0); MCHC 31.8 g/dL (31.0-37.0); MEAN PLATELET VOLUME 10.5 fL (7.4-10.4); MONOCYTES 7.9 % (2-11); RBC 3.24 10x6/uL (4.20-6.10); RDW 18.7 % (11.5-14.5); WBC 15.6 10x3/uL (4.8-10.8)
[2019-10-18 06:54] LABS: MCV 92.3 fL (80.0-100.0); PLATELET COUNT 221 10x3/uL (130-400)
--- NOTE | 2019-10-18 07:05 | NUR ---
SPOKE WITH DR. MARTINEZ , UPDATED ON PATIENT. NEW ORDERS RECEIVED.
--- NOTE | 2019-10-18 07:15 | NUR ---
PATIENT AFIB ON MONITOR. DR. MORA NOTIFIED, NO NEW ORDERS. VSS
--- NOTE | 2019-10-18 09:39 | NUR ---
Nutrition follow-up: Pt extubated 10/16; clear liquid diet Labs reviewed Wt: 172# RDN following pts diet advancement and tolerance.
--- NOTE | 2019-10-18 13:30 | NUR ---
DR MORA AT BEDSIDE. CHEST TUBES AND SCHILLING PULLED AND DRESSED. PT POSITIONED FOR COMFORT WILL CONTINUE TO MONITOR.
--- NOTE | 2019-10-18 13:45 | NUR ---
DR. MORA STATED THAT HE WAS OK WITH HEART RATE AROUND 110. HE ALSO STED THAT HE ORDERED SOME LOPRESSOR FOR HR THAT STATED ABOVE 120. DIALYSIS NURSE IS AT BEDSIDE AND WILL CONTINUE WITH DIALYSIS. WILL CONMTINUE TO MONITOR.
--- NOTE | 2019-10-18 19:00 | NUR ---
REPORT RECEVIED FROM THE OFF GOING RN. SEE ASSESSMENT IN THE PTS FLOW SHEET. DIALYSS NURSE AT THE PTS BEDSIDE. CALL LIGHT IN REACH. WILL CONT POC.
--- NOTE | 2019-10-18 19:15 | NUR ---
DIALYSIS NURSE COMPLETED. 1 L TAKEN OFF PER DIALYSIS NURSE. WILL CONT POC.
--- NOTE | 2019-10-18 20:23 | NUR ---
DR MORA CALLED AND NOTIFIED OF THE PATIENT BEING LETHARGIC/OBTUNDED AND NEGLATING HIS RIGHT ARM. HE WAS ALSO NOTIFIED OF THE PATIENT BEING IN AFIB. I WAS EXPLAINED FROM CEDRICK, DAY TIME RN, TO GIVE LOPRESSOR ONCE HE COMPLETED DIALYSIS. PER DR MORA, GIVE 2.5 IV LOPRESSOR NOW AND SCHEDUAL Q6 HOURS. OBTAIN ABG. ABG OBTAINED. PT PLACED ON 2.5L VIA NC. RESULTS CALLED TO DR MORA. KEEP PT ON O2 AND TREAT GLUCOSE WITH 1 AMP D50. WILL CONT POC.
[2019-10-19] VITALS (23 sets, daily range): BP systolic 123–154; BP diastolic 52–86
--- NOTE | 2019-10-19 00:59 | NUR ---
PT SLIGHTLY MOVING HIS RIGHT ARM MORE. PT REMAINS TO MAKE UNCONREHENSIBLE NOISES. VSS WILL CONT POC.
--- NOTE | 2019-10-19 01:37 | NUR ---
MIDSTERNAL AND SUBSTERNAL DRESSING COMING OFF DUE TO THE PT PEELING AT THE DRESSING. MIDSTERAL AND SUBSTERNAL DRESSING CHANGED PER ORDERS. PT TOLERATED WEL. CALL LIGHT IN REACH. WILL CONT POC.
--- NOTE | 2019-10-19 05:12 | NUR ---
PT PICKING AT HIS SUBSTERNAL DRESSSING. IT WAS REMOVED AND REDRESSED. PT ABLE TO FOLLOW SIMPLE COMMANDS. ABLE TO LIFE HIS RIGHT ARM ON COMMAND AND SQUEEZE. RIGHT HAND SLIGHTLY WEAKER THAN HIS LEFT. FACE SYMETRICAL WHENEVER SMILING. PT STILL UNABLE TO VERBALIZED NEEDS AND MAKES UNCOMPREHENSIBLE NOISES. CALL LIGHT IN REACH. VSS. WILL CONT POC.
--- NOTE | 2019-10-19 06:16 | NUR ---
PT RECEVIED A FULL CHD BEDBATH AND LINEN CHANGE. PT HELPED MINIMALLY AND STILL NEGLEGATED THE RIGHT ARM. PT TOLERATED WELL. CALL LIGHT IN REACH. WILL CONT POC.
[2019-10-19 06:56] LABS: BASOPHILS 0.4 % (0-2); EOSINOPHILS 1.2 % (0-7); HEMATOCRIT 27.5 % (42.0-54.0); HEMOGLOBIN 8.8 g/dL (13.5-17.5); IMMATURE GRANULOCYTES 0.1 % (0-5); LYMPHOCYTES 4.9 % (15-50); MCV 90.8 fL (80.0-100.0); MEAN PLATELET VOLUME 10.3 fL (7.4-10.4); MONOCYTES 7.9 % (2-11); NEUTROPHILS 85.5 % (40-80); PLATELET COUNT 249 10x3/uL (130-400); RBC 3.03 10x6/uL (4.20-6.10); RDW 18.2 % (11.5-14.5); WBC 13.7 10x3/uL (4.8-10.8)
[2019-10-19 07:11] LABS: ALBUMIN 2.8 g/dL (3.4-5.0); ANION GAP 19.7 mmol/L (8-16); BILIRUBIN - TOTAL 0.69 mg/dL (0.2-1.3); CARBON DIOXIDE 22.1 mmol/L (21.0-32.0); CREATININE - SERUM 6.1 mg/dL (0.6-1.3); MAGNESIUM - SERUM 2.6 mg/dL (1.8-2.4); PHOSPHOROUS 7.6 mg/dL (2.5-4.9); POTASSIUM - SERUM 4.8 mmol/L (3.5-5.1); PROTEIN - SERUM 6.1 g/dL (6.4-8.2)
--- NOTE | 2019-10-19 07:28 | NUR ---
AT BED SIDE DISCUSSED PT CONDITION AND SHE WILL BE ORDERING CT AND IF NEGATIVE WILL GO FOR MRI.
[2019-10-19 08:42] LABS: % SATURATION 21 % (15-55); IRON 29 ug/dl (35-150); TOTAL IRON BIND CAPACITY 134 ug/dl (260-445); UNSAT IRON BIND CAPACITY 105 ug/dl (150-375)
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
[2019-10-20] VITALS (37 sets, daily range): BP systolic 99–139; BP diastolic 33–77
--- NOTE | 2019-10-20 01:00 | NUR ---
PT RESTING QUIETLY WITH NO S/SX OF DISTRESS/DISCOMFORT NOTED. CALL LIGHT IN REACH. WILL CONT POC.
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
--- NOTE | 2019-10-20 10:07 | NUR ---
Nutrition Follow-up: POD 5 CABG. Pt confused and combative. Noted DIAMOND ASSORTER recs NPO with reeval today. Uncooperative with lab draw this AM. Wt: 160.9# (10/19); 172.1# (10/17); 175# (10/11) Last BM: 10/10 Meds reviewed -If unable to advance diet today, rec initiate nutrition support. Pt has not been eating well prior to NPO status. Wt changes noted. -Monitor wt. -RD following.
--- NOTE | 2019-10-20 13:05 | NUR ---
WANTED TO CONSULT DR. JIMENEZ WITH NEUROLOGY. CONSULT CALLED AND IS AWARE.
[2019-10-20 18:00] LABS: BASOPHILS 0.5 % (0-2); EOSINOPHILS 0 % (0-7); HEMATOCRIT 30.1 % (42.0-54.0); HEMOGLOBIN 9.4 g/dL (13.5-17.5); IMMATURE GRANULOCYTES 0.2 % (0-5); LYMPHOCYTES 5.5 % (15-50); MCH 28.6 pg (26.0-34.0); MCHC 31.2 g/dL (31.0-37.0); MCV 91.5 fL (80.0-100.0); MONOCYTES 10.3 % (2-11); NEUTROPHILS 83.5 % (40-80); PLATELET COUNT 289 10x3/uL (130-400); RBC 3.29 10x6/uL (4.20-6.10); RDW 17.8 % (11.5-14.5)
[2019-10-20 18:26] LABS: ALBUMIN 2.6 g/dL (3.4-5.0); ANION GAP 19.3 mmol/L (8-16); BILIRUBIN - TOTAL 0.74 mg/dL (0.2-1.3); CALCIUM 8.7 mg/dL (8.5-10.1); POTASSIUM - SERUM 5.3 mmol/L (3.5-5.1); PROTEIN - SERUM 5.4 g/dL (6.4-8.2)
[2019-10-20 18:27] LABS: CREATININE - SERUM 7.9 mg/dL (0.6-1.3)
--- NOTE | 2019-10-20 19:00 | NUR ---
REPORT RECEIVED, SHIFT ASSESSMENT COMPLETE, DIALYSIS NURSE AT BEDSIDE, ALL INCISION SITES C/D/I, PT AWKAE BUT CONFUSED TO SITUATION, ANSWERES MINIMAL QUESTIONS, RT UPPER ARM IV SITE C/D/I PATENT, SEE FLOW SHEET FOR FURTHER, CALL LIGHT IN REACH, BED ALARM ON, WILL CONTINUE TO MONITOR
--- NOTE | 2019-10-20 19:15 | NUR ---
AT BEDSIDE, UPDATE GIVEN
--- NOTE | 2019-10-20 22:45 | NUR ---
PT PULLING AT LINES AND YELLING AT NURSING STAFF " TO GET THE HELL OUT" WHEN INTERACTED WITH, ATTEMPTED TO REORIENT TO PLACE AND SITUATION, PT CONTINUES TO BE COMBATHIVE AND SWINGING ARMS AT NURSES, RESTRAINTS AND LINES REPOSITIONED, WILL CONTINUE TO MONITOR
--- NOTE | 2019-10-20 23:23 | NUR ---
PT PULLING AT LINES, REPOSITIONED AND ATTEMPTED TO REORIENT PT, PT STATES " GET THE HELL OUT OF HERE" AND ATTEMPTS TO SWING FIST AT NURSES
--- NOTE | 2019-10-20 23:30 | NUR ---
PT PULLED OFF EKG WIRES AND STICKERS AND KICKING FEET UP AND DOWN, ATTEMPTED TO REORIENT PT TO SITUATION, PT YELLS LOUDLY " TO GET THE HELL OUT", MED GIVEN PER JUL/, V/S: BP 123/65(85) HR 90bpm, SPO2 98% ON 2L VIA NC, WILL CONTINUE TO MONITOR
[2019-10-21] VITALS (26 sets, daily range): BP systolic 93–147; BP diastolic 41–83
[2019-10-21 06:17] LABS: BASOPHILS 0.5 % (0-2); EOSINOPHILS 4.1 % (0-7); HEMATOCRIT 30.2 % (42.0-54.0); HEMOGLOBIN 9.6 g/dL (13.5-17.5); IMMATURE GRANULOCYTES 0.3 % (0-5); LYMPHOCYTES 8.7 % (15-50); MCHC 31.8 g/dL (31.0-37.0); MCV 91.2 fL (80.0-100.0); MEAN PLATELET VOLUME 10.6 fL (7.4-10.4); MONOCYTES 9.6 % (2-11); NEUTROPHILS 76.8 % (40-80); PLATELET COUNT 283 10x3/uL (130-400); RBC 3.31 10x6/uL (4.20-6.10); RDW 17.5 % (11.5-14.5); WBC 13.8 10x3/uL (4.8-10.8)
[2019-10-21 06:34] LABS: ANION GAP 20.7 mmol/L (8-16); BILIRUBIN - TOTAL 1.01 mg/dL (0.2-1.3); CALCIUM 9.1 mg/dL (8.5-10.1); CARBON DIOXIDE 22.2 mmol/L (21.0-32.0); CREATININE - SERUM 6.4 mg/dL (0.6-1.3); MAGNESIUM - SERUM 2.9 mg/dL (1.8-2.4); PHOSPHOROUS 7.6 mg/dL (2.5-4.9); POTASSIUM - SERUM 4.9 mmol/L (3.5-5.1); VANCOMYCIN - RANDOM 15.6 ug/mL (10.0-20.0)
[2019-10-21 06:35] LABS: ALBUMIN 3.3 g/dL (3.4-5.0); PROTEIN - SERUM 6.9 g/dL (6.4-8.2)
--- NOTE | 2019-10-21 07:00 | NUR ---
RECEIVED BEDSIDE REPORT ON PATIENT AND ASSUMED CARE. PATEINT AWAKE AND ALERT, CONFUSED TO LOCATION (STATES [place]) AND SITUATION. REORIENTED. PATIENT PULLLING OFF MONITOR LEADS AND PULLING AT GOWN. BILATERAL SOFT RESTRAINTS IN PLACE. PATIENT TURNED AND REPOSITIONED IN BED. RIGHT SUBCLAVIAN HEMISPLIT DIALYSIS CATH IN PLACE. DRESSING C/D/I. RIGHT UPPER ARM [address], INFUSING PROCALAMINE AT 75 CC/HR, NO S/S OF INFILTRATION. PATRICA HOSE AND SCD REMOVED AND REPLACED. REE DRAIN TO LEFT SUBSTERNAL CHEST WITH 20 ML OF SEROSANGENIOUS DRAINAGE EMPTIED. CM - A-FIB, 80S TO 90S, BBS - CLEAR AND EQUAL, DIMINISHED IN BASES, SPO2 - 98% ON 2 LPM O2 VIA NC. RR 22. HEAD TO TOE ASSESSMENT COMPLETED.
--- NOTE | 2019-10-21 08:10 | NUR ---
FSBS - 96 MG/DL.
--- NOTE | 2019-10-21 08:17 | OP ---
PATIENT NAME: GILDA CONTRERAS MEDICAL RECORD: [id number] :39 LOCATION:[facility] ADMISSION DATE:10/12/19 SURGEON: RAH BLAKE MD DATE OF OPERATION: 10/14/2019 PROCEDURE: Intraaortic balloon pump placement. DESCRIPTION OF PROCEDURE: After a 6-Guamanian sheath placed in right femoral artery under fluoroscopic guidance and using a guidewire, the intraaortic balloon pump was placed to the level of the yusuf. The guidewire was withdrawn. The balloon pump was put to pressure and the balloon pump was sutured in place with good augmentation at 1:1 augmentation rate. IMPRESSION: Successful balloon pump placement. TRANSINT:[id number] Voice Confirmation ID: [id number] DOCUMENT ID: [id number] RAH BLAKE MD at 0817 CC: [id number] DICTATION DATE: 10/14/19 1647 BEST WORKER: 10/14/19 1824 ADM IN [facility] [address] [id number]
--- NOTE | 2019-10-21 08:17 | TEE ---
PATIENT:GILDA CONTRERAS MEDICAL RECORD: [id number] LOCATION:[place] [address] AGE OF PATIENT: 79 ADMISSION DATE: 10/12/19 SEX: M REFERRING PHYSICIAN: INTERPRETING PHYSICIAN: RAH BLAKE MD TRANSESOPHAGEAL ECHOCARDIOGRAM Date: 10/15/19 PAULO CHARGE Y INDICATIONS: CABG PREMEDICATIONS: PATIENT'S RESPONSE PROCEDURE DOPPLER MEASUREMENTS: LVIT LA 3.8 PA 92 RA LVOT 122 RVOT 63 Asc. Ao 184 AV Gradient Peak 13.60 AV Mean 7.37 AV Area 2.3 MV Gradient Peak 7.35 MV Mean 2.11 MV Area INTERPRETATION: Doppler: 2-D: COLOR FLOW DOPPLER NORMAL SALINE STUDY: MISCELLANOUS: DIAGNOSIS: PLAN: Campus Security Director:3 Dr. Tobar Crown Presser: Elizabeth FONTAINE COMMENTS: DATE OF SERVICE: 10/19/2019 PROCEDURE: Intraoperative PAULO. Preoperatively, LVH is present. LV internal dimensions are normal. 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 Postoperatively, there is increased contractility typically along the base of the entire LV with an EF improved 40% to 45%. TRANSESOPHAGEAL ECHOCARDIOGRAM REPORT [id number] GILDA CONTRERAS TRANSINT:[id number] Voice Confirmation ID: [id number] DOCUMENT ID: [id number] at 0817 CC: [id number] DICTATION DATE: 10/19/19 1640 VASCULAR TECHNICIAN: 10/20/19 1145 ADM IN [place] [id number] [place] [address]
--- NOTE | 2019-10-21 08:17 | OP ---
PATIENT NAME: GILDA CONTRERAS MEDICAL RECORD: [id number] :39 LOCATION:[facility] ADMISSION DATE:10/12/19 SURGEON: RAH BLAKE MD DATE OF OPERATION: 10/14/2019 PROCEDURE: 4-vessel arteriography DESCRIPTION OF PROCEDURE: After 8-Lebanese sheath placed in the right femoral artery, a DOCUMENTATION LIAISON diagnostic catheter was used. The right common carotid was selectively engaged. This shows luminal irregularities, no flow obstructive stenosis. The right external carotid shows luminal irregularities, some calcification, but no significant stenosis. Right internal carotid in the CALDERÓN view does show an eccentric stenosis of approximately 70%, fairly discrete lesion. The catheter was withdrawn to the left common carotid and left common carotid was selectively engaged. This shows calcification and luminal irregularities but no focal stenosis. The left external carotid shows again irregularity, no significant stenosis. Left internal carotid shows mild lumen irregularities, but no flow obstructive stenosis. IMPRESSION: Significant disease of the right internal carotid. TRANSINT:[id number] Voice Confirmation ID: [id number] DOCUMENT ID: [id number] RAH BLAKE MD at 0817 CC: [id number] DICTATION DATE: 10/14/19 1621 PEGA DEVELOPER: 10/14/19 1819 ADM IN [place] [id number] [place] [id number]
--- NOTE | 2019-10-21 08:20 | NUR ---
PATIENTS AT BEDSIDE, UPDATED AND QUESTIONS ANSWERED. VSS. ATTEMPTS TO GET PATIENT TO TAKE SOME CLEAR LIQUIDS WITH NO SUCCESS.
--- NOTE | 2019-10-21 10:58 | NUR ---
REASSESSMENT COMPLETED. VSS. WATCHING TV. NO NEEDS AT THIS TIME.
--- NOTE | 2019-10-21 11:05 | NUR ---
PATIENT MORE ALERT, ORIENTED X 4, STATES IN HOSPITAL, YEAR 2019 AND IN [place], AT BEDSIDE. RESTRAINTS DISCONTINUED.
--- NOTE | 2019-10-21 11:56 | NUR ---
PATIENT GIVEN LUNCH TRAY AND ASSISTED. PATIENT REFUSING TO DRINK, LEFT AT BEDSIDE NILSA ATTEMPT LATER.
--- NOTE | 2019-10-21 12:47 | NUR ---
PATIENT REPOSITIONED IN BED. VSS. STATES DOES NOT WANT TO EAT, TRAY AT BEDSIDE. TV TURNED ON FOR PATIENT.
--- NOTE | 2019-10-21 13:10 | NUR ---
PATIENT REPOSITIONED IN BED. VSS.
--- NOTE | 2019-10-21 14:37 | NUR ---
PATIENTS AT BEDSIDE, VSS. PATIENT WITH NO NEEDS AT THIS TIME. DID NOT EAT LUNCH TRAY BUT DID EAT A PUDDING CUP.
--- NOTE | 2019-10-21 14:51 | NUR ---
DR. MORA AT ROOM AT ROOM SPEAKS WITH AND ANSWERS QUESTIONS.
--- NOTE | 2019-10-21 15:01 | NUR ---
REASSESSMENT COMPLETED. PATIENT PLACED ON BEDPAN FOR BM. LINENS CHANGED AND REPOSITIONED. VSS. AT BEDSIDE.
--- NOTE | 2019-10-21 16:35 | NUR ---
PATIENT TURNED AND REPOSITIONED IN BED. VSS. DINNER TRAY PROVIDED, AT BEDSIDE.
--- NOTE | 2019-10-21 17:46 | NUR ---
PATIENT ATE 15% OF DINNER TRAY. VSS.
--- NOTE | 2019-10-21 20:26 | NUR ---
PT HAD SEMIFORMED DARK BROWN BM, PERICARE AND COMPLETE LINEN AND GOWN CHANGE
[2019-10-22] VITALS (26 sets, daily range): BP systolic 82–156; BP diastolic 31–80
--- NOTE | 2019-10-22 00:15 | NUR ---
PT HAD INCONTENENT SEMIFORMED BROWN BM, PERICARE COMPLETED AND LINENS CHANGED, YELLOW GOWN PLACED ON PT, REPOSITIONED FOR COMFORT, HOB ELEVATED, ORIENTED TO SITUATION, BED ALARM ON, CALL LIGHT IN REACH, WILL CONTINUE TO MONITOR
--- NOTE | 2019-10-22 00:30 | NUR ---
PT PULLED MIDSTERNAL DRSG OFF AND ATTEMPTING TO PULL AT LIKES AND EKG WIRES, RN AT BEDSIDE, PT CONFUSED TO PLACE AND SITUATION, ABLE TO REORRIENT PT TO PLACE TIME AND SITUATION QUICKLY, PT CALMED AND COOPERATIVE, MIDSTERNAL SITE CLEANED AND DRSG REPLACED, EKG STICKERS REPLACED, PT REPOSITIONED IN BED AND TEACHING REVIEWED WITH PT, CALL LIGHT IN RERACH, BED ALARM ON, WILL CONTINUR TO MONITOR
--- NOTE | 2019-10-22 06:00 | NUR ---
AT BEDSIDE, UPDATE GIVEN
[2019-10-22 06:20] LABS: ALBUMIN 2.7 g/dL (3.4-5.0); ANION GAP 20.6 mmol/L (8-16); BILIRUBIN - TOTAL 0.81 mg/dL (0.2-1.3); CALCIUM 8.9 mg/dL (8.5-10.1); CARBON DIOXIDE 19.9 mmol/L (21.0-32.0); CREATININE - SERUM 7.7 mg/dL (0.6-1.3); PHOSPHOROUS 7.9 mg/dL (2.5-4.9); POTASSIUM - SERUM 5.5 mmol/L (3.5-5.1); PROTEIN - SERUM 5.9 g/dL (6.4-8.2); VANCOMYCIN - RANDOM 14.6 ug/mL (10.0-20.0)
[2019-10-22 06:23] LABS: BASOPHILS 0.4 % (0-2); EOSINOPHILS 0 % (0-7); HEMOGLOBIN 9.4 g/dL (13.5-17.5); IMMATURE GRANULOCYTES 0.5 % (0-5); LYMPHOCYTES 7.6 % (15-50); MCH 28.9 pg (26.0-34.0); MCHC 32.4 g/dL (31.0-37.0); MEAN PLATELET VOLUME 11.7 fL (7.4-10.4); MONOCYTES 13.5 % (2-11); PLATELET COUNT 258 10x3/uL (130-400); RBC 3.25 10x6/uL (4.20-6.10); RDW 17.2 % (11.5-14.5); WBC 13.3 10x3/uL (4.8-10.8)
[2019-10-22 06:25] LABS: MCV 89.2 fL (80.0-100.0)
--- NOTE | 2019-10-22 07:00 | NUR ---
RECEIVED BEDSIDE REPORT ON PATIENT AND ASSUMED CARE OF PATIENT. PATIENT RESTING WITH EYES CLOSED, AROUSES TO VOICE AND FOLLOWS COMMANDS, VSS. CM - A-FIB CONTROLLED IN 80-90S, RR 19, NON LABORED, SPO2 - 97% ON 2 LPM O2 VIA NC, BBS - CLEAR AND EQUAL, DIMINISHED IN THE BASES. IV 20 GA TO RIGHT UPPER ARM INFUSING PROCALAMINE AT 75 ML/HR, NO S/S OF INFILTRATION. PATIENT TURNED AND REPOSITIONED. 10 ML OF SEROSANGENIOUS DRAINAGE. HEAD TO TOE ASSESSMENT COMPLETED.
--- NOTE | 2019-10-22 08:11 | NUR ---
PATIENTS AT ROOM UPDATED AND QUESTIONS ANSWERED. PATIENT REFUSING BREAKFAST. ATTEMPTING TO GET HIM TO EAT. VSS.
--- NOTE | 2019-10-22 08:36 | NUR ---
PATIENT REFUSED BREAKFAST. VSS. TURNED AND REPOSITIONED IN BED. AT BEDSIDE.
--- NOTE | 2019-10-22 08:53 | NUR ---
PATIENT TURNED AND REPOSITIONED IN BED. VSS. AT BEDSIDE. MORNING MEDS PER MAR.
--- NOTE | 2019-10-22 09:10 | NUR ---
PATIENT DANGLED ON SIDE OF BED WITH PT. VSS.
--- NOTE | 2019-10-22 10:19 | NUR ---
Nutrition Follow-up: PO intake remains poor. Refused breakfast this AM. Noted Procalamine @ 75 (provides 441 kcal and 54 g protein daily) started on 10/19. STONECUTTER ASSISTANT following; encouraged PO intake and discussed alternative means of nutrition. Diet: Diabetic, Puree PO intake: 0-15% Wt: 165.3# (10/21); 160.9# (10/19); 168# (10/14); 175# (10/11) Last BM: 10/21 Labs noted: Na 135, K+ 5.5, Glu 136, PO4 7.9, Mg 3.0, Alb 2.7 Meds reviewed -Encourage PO intake and honor food preferences within diet restrictions. -Pt may benefit from appetite stimulant; if PO intake remains poor, may consider more substantial nutrition support. -Monitor wt. -RD following.
--- NOTE | 2019-10-22 11:00 | NUR ---
REASSESSMENT COMPLETED. VSS. TURNED AND REPOSITIONED IN BED.
--- NOTE | 2019-10-22 11:43 | NUR ---
DR. MORA AT ROOM UPDATED AND EXAMINES PATIENT. PULLS REE DRAIN AND TPM WIRES, DRESSED WITH 4X4 AND TEGADERM, BEDATINE OINTMENT APPLIED. 30 ML SEROSANGENIOUS IN REE DRAIN. VSS. UPDATES AND ANSWERS QUESTIONS.
--- NOTE | 2019-10-22 12:02 | NUR ---
PATIENT GIVEN LUNCH TRAY. VSS. AT BEDSIDE.
[2019-10-22 12:03] LABS: PLATELET ESTIMATE NORMAL
[2019-10-22 12:04] LABS: ROULEAUX OCC; SMUDGE CELLS OCC
--- NOTE | 2019-10-22 12:43 | NUR ---
PATIENT COMBATIVE AND YELLING, ATTEMPTING TO HIT STAFF, AT BEDSIDE, ATTEMPTS TO REDIRECT AND CALM PATIENT DOWN NOT SUCCESSFUL. DR. MONAE AT BEDSIDE, PATIENT PULLED DRESSINGS, O2, AND GOWN OFF, ATTEMPTING TO PULL IV OUT. PLACED IN SOFT BILATERAL WRIST RESTRAINTS. WILL CONTINUE TO MONITOR. VSS.
--- NOTE | 2019-10-22 15:00 | NUR ---
REASSESSMENT COMPLETED, VSS. TURNED AND REPOSITIONED IN BED.
--- NOTE | 2019-10-22 16:11 | NUR ---
PATIENT RESTING QUIETLY, AT BEDSIDE, VSS.
--- NOTE | 2019-10-22 17:12 | NUR ---
PATIENT INCONTINENT OF STOOL, CLEANED AND LINENS CHANGED. TURNED AND REPOSITIONED IN BED. VSS. REFUSES DINNER TRAY.
--- NOTE | 2019-10-22 18:07 | NUR ---
PATIENT RESTING QUIETLY, VSS.
--- NOTE | 2019-10-22 19:20 | NUR ---
REPORT REC'D AND CARE ASSUMED, REC'D PT RESTING IN BED AWAKE AND ALERT, SLOW TO RESPOND BUT DOES RESPOND APPROPRIATELY TO QUESTIONS, ORIENTED TO PERSON, PLACE, AND SITUATION, O2 @ 2LITERS VIA NC, RIGHT UPPER ARM PIV PROCALAMINE INFUSING @ 75CC/HR, RIGHT SCL HEMOSPILT SALINE LOCKED, LEFT ARM OLD FISTULA THAT DOES NOT WORK, MIDLINE STERNUM DRSG CDI, SUBSTERNAL DRSG CDI TO PREVIOUS CT INSERTION SITES, MAEE, BILAT TEDS/SCDS, PPP, RIGHT LOWER EXT HARVEST SITES, OPEN TO AIR, INCISIONS WELL APPROXIMATED, SR UP X 2, CALL LIGHT IN REACH, VISIBLE TO NURSES STATION.
--- NOTE | 2019-10-22 20:20 | NUR ---
DIALYSIS SETTING UP AT BS
--- NOTE | 2019-10-22 20:30 | NUR ---
FSBS 106, PT RESTING EYES CLOSED, RESP EVEN AND UNLABORED.
--- NOTE | 2019-10-22 21:00 | NUR ---
EVENING MEDS GIVEN, DIALYSIS NURSE AT BS, PT TOLERATING DIALYSIS WELL, VSS, WILL CONT TO MONITOR CLOSELY FOR CHANGES.
--- NOTE | 2019-10-22 23:25 | NUR ---
DIALYSIS COMPLETED WITHOUT DIFFICULTY, PT RESTING IN BED EYES CLOSED, REASSESSMENT COMPLETED, PT CONFUSED TO TIME AND PLACE, REORIENTED AT THIS TIME, 1.5 LITERS REMOVED PER DIALYSIS NURSE, SR UP X 2, BED IN LOW POSITION, VISIBLE TO NURSES STATION.
[2019-10-23] VITALS (20 sets, daily range): BP systolic 110–153; BP diastolic 55–100
--- NOTE | 2019-10-23 01:15 | NUR ---
PT INCONTINENT OF LOOSE BROWN LIQUID STOOL, COMPLETE CHG BATH AND LINEN CHANGE PROVIDED, PT REPOSITIONED UP IN BED AND ONTO RIGHT SIDE SUPPORTED WITH PILLOW, PT TOLERATED WELL, DID NOT GROW AGITATED DURING BATH, SR UP X 2 ,BILAT SOFT WRIST RESTRAINTS INTACT.
--- NOTE | 2019-10-23 03:45 | NUR ---
RADIOLOGY AT BS FOR AM CXR
--- NOTE | 2019-10-23 05:00 | NUR ---
PT REPOSITIONED OVER TO LEFT SIDE SUPPORTED WITH PILLOW, PT DID NOT CUSS AT STAFF THIS TIME, BP STABLE, WILL CONT TO MONITOR FOR CHANGES.
--- NOTE | 2019-10-23 05:35 | NUR ---
DR. MARTINEZ PHONED FOR UPDATE REGARDING PATIENT, QUESTIONS ANSWERED, NO NEW ORDERS AT THIS TIME
[2019-10-23 05:49] LABS: HEMATOCRIT 31.4 % (42.0-54.0); MCH 28.9 pg (26.0-34.0); MCHC 31.8 g/dL (31.0-37.0); MCV 90.8 fL (80.0-100.0); RBC 3.46 10x6/uL (4.20-6.10); RDW 17.3 % (11.5-14.5); WBC 14.5 10x3/uL (4.8-10.8)
--- NOTE | 2019-10-23 14:30 | NUR ---
ASSISTED BACK TO BED BY PT.
[2019-10-23 14:41] LABS: ANION GAP 14.5 mmol/L (8-16); CALCIUM 8.8 mg/dL (8.5-10.1); CARBON DIOXIDE 23.8 mmol/L (21.0-32.0); CREATININE - SERUM 6.3 mg/dL (0.6-1.3); POTASSIUM - SERUM 5.3 mmol/L (3.5-5.1)
--- NOTE | 2019-10-23 19:15 | NUR ---
REPORT REC'D AND CARE ASSUMED, REC'D PT RESTING IN BED ON O2 @ 2LITERS VIA NC, PT ORIENTED TO PERSON, PLACE, YEAR AND MONTH, CALM AND COOPERATIVE, RIGHT UPPER ARM PIV WITH PROCALAMINE INFUSING @ 75CC/HR, MIDSTERNAL DRSG CDI, SUBSTERNAL DRSG CDI TO PREVIOUS REE AND CT SITES, ABD SOFT, BS ACTIVE, RIGHT SCL HEMOSPLIT, HEPLOCKED, LEFT LOWER ARM OLD FISTULA, RIGHT LEG HARVEST SITES OPEN TO AIR, TEDS AND SCDS INTACT, PPP, SR UP X 2, BED IN LOW POSITION.
--- NOTE | 2019-10-23 20:30 | NUR ---
ATTEMPTED TO GIVE EVENING MEDS, PT REFUSED EYE DROPS EVEN AFTER OFFERING TO ALLOW HIM TO INSTILL THEM HIMSELF, PT YELLED " I DO NOT WANT THEM!", EYE DROPS HELD AT THIS TIME.
--- NOTE | 2019-10-23 23:10 | NUR ---
ROUTINE MEDS GIVEN, REASSESSMENT COMPLETED, FSBS 119, PT WANTING TO SIT UP ON SIDE OF BED TO VOID, ASSISTED PATIENT TO SIT UP ON SIDE OF BED, URINAL PROVIDED.
--- NOTE | 2019-10-23 23:35 | NUR ---
PT UNABLE TO VOID, ASSISTED PT BACK TO BED, SR UP X 2, CALL LIGHT AND BEDSIDE TABLE IN REACH, PT DENIES FURTHER NEEDS, WILL CONT TO MONITOR FOR CHANGES, BED ALARM ON.
[2019-10-24] VITALS (24 sets, daily range): BP systolic 113–174; BP diastolic 49–107
--- NOTE | 2019-10-24 02:00 | NUR ---
NO CHANGES IN STATUS.
--- NOTE | 2019-10-24 03:30 | NUR ---
REASSESSMENT COMPLETED, NO CHANGES FROM PREVIOUS ASSESSSEMNT, PT COUGHING WITH A PRODUCTIVE SOUNDING COUGH FROM TIME TO TIME, DENIES NEED FOR WATER OR ICE CHIPS, PROCALAMINE CONTINUES AT 75CC/HR, PT DENIES PAIN, WILL CONT TO MONITOR CLOSELY FOR CHANGES.
--- NOTE | 2019-10-24 04:00 | NUR ---
RADIOLOGY @ BS FOR AM CXR
--- NOTE | 2019-10-24 04:10 | NUR ---
PT ASSISTED UP ON SIDE OF BED TO ATTEMPT TO VOID, URINAL PROVIDED.
--- NOTE | 2019-10-24 04:55 | NUR ---
PT VOIDED APPROXIMATELY 25CC CONCENTRATED URINE, ASSISTED PT BACK TO BED, DRSG TO SUBSTERNAL AREA LOOSE, DRSG CHANGED, SITES CLEANED WITH BETADINE, BETADINE OINTMENT APPLIED, COVERED WITH 4X4'S AND TEGADERM, PT TOLERATED WELL.
[2019-10-24 06:22] LABS: HEMATOCRIT 31.1 % (42.0-54.0); HEMOGLOBIN 9.8 g/dL (13.5-17.5); MCH 28.7 pg (26.0-34.0); MCHC 31.5 g/dL (31.0-37.0); MCV 91.2 fL (80.0-100.0); MEAN PLATELET VOLUME 11.8 fL (7.4-10.4); RBC 3.41 10x6/uL (4.20-6.10); RDW 17.4 % (11.5-14.5); WBC 14.7 10x3/uL (4.8-10.8)
[2019-10-24 06:46] LABS: PHOSPHOROUS 6.3 mg/dL (2.5-4.9); VANCOMYCIN - RANDOM 16.9 ug/mL (10.0-20.0)
--- NOTE | 2019-10-24 07:00 | NUR ---
DURING BEDSIDE REPORT IV IN R UPPER ARM NOTED TO BE OUT. ATTEMPTS X 2 MADE TO RESTART IV. UNABLE TO LOCATE NEW IV SITE. COMPLETE CHG BATH DONE AND ASSISTED UP TO CHAIR X 2.
--- NOTE | 2019-10-24 14:16 | NUR ---
DR. MORA HERE. DR. CHERY PAGED FOR DR. MORA TO TALK REGARDING HEMOSPLINT CHANGE.
--- NOTE | 2019-10-24 16:00 | NUR ---
BACK TO BED WITH ASSISTANCE X 1.
--- NOTE | 2019-10-24 19:00 | NUR ---
PT ASSESSMENT COMPLETED AT THIS TIME, NO CHANGES NOTED FROM NURSE REPPORT, PT IS AWAKE AND ALERT, PT IS CONFUSED TO PLACE, TIME, AND SITUATION. PT FOLLOWS COMMANDS AND DENIES COMPLAINTS, VSS
--- NOTE | 2019-10-24 20:40 | NUR ---
PT WAS FOUND GETTING OUT OF BED, WHILE TRYING TO GET PATIENT BACK TO BED, PT STATED "I'M GOING HOME, I'M NOT STAYING HERE" PT STILL VERY CONFUSED AND UNABLE TO REORIENT.
--- NOTE | 2019-10-24 21:00 | NUR ---
PT WAS FINALLY MOVED BACK INTO BED WITH MULTIPLE STAFF ASSISSTING, PT WAS PLACE IN BILATER WRIST RESTRAINTS DUE TO PATIENT'S REFUSSUAL TO ALLOW STAFF TO HELP AND PT TRYING TO LEAVE AGAINST THE ADVISE OF THE NURSES AND PATIENT UNABLE TO UNDERSTAND HIS CRITICAL CONDITION. DR MORA CALLED AND UPDATED ON PT'S STATUS AND ORDERS FOR RESTRAINTS AND TO GIVEN THE PRN HALDOL NEEDED
--- NOTE | 2019-10-24 22:23 | NUR ---
PT RESTING WITH EYES CLOSED, PT WILL AWAKE TO NAME, VSS, NO DISTRESS NOTED, WILL MONITOR FOR CHANGES
--- NOTE | 2019-10-24 23:00 | NUR ---
PT REASSESSMENT COMPLETED AT THIS TIME, PT RESTING WITH EYES CLOSED, RESP EVEN AND UNLABORED, PT AWAKES TO NAME, VSS, WILL MONITOR FOR CHANGES
[2019-10-25] VITALS (38 sets, daily range): BP systolic 94–156; BP diastolic 35–80
--- NOTE | 2019-10-25 01:00 | NUR ---
PT IS AWAKE AND ALERT AT THIS TIME, PT IS STILL VERY CONFUSED, PT DENIES COMPLAINTS, VSS
--- NOTE | 2019-10-25 03:00 | NUR ---
PT REASSESSMENT COMPLETED AT THIS TIME, NO CHANGES NOTED FROM PREVIOUS EXAM, VSS
--- NOTE | 2019-10-25 05:10 | NUR ---
PT GIVEN CHG BATH GIVEN AT THIS TIME, NO DISTRESS NOTED, VSS
[2019-10-25 05:19] LABS: BASOPHILS 0.3 % (0-2); HEMATOCRIT 30.1 % (42.0-54.0); HEMOGLOBIN 9.6 g/dL (13.5-17.5); IMMATURE GRANULOCYTES 0.8 % (0-5); LYMPHOCYTES 8.7 % (15-50); MCH 29.2 pg (26.0-34.0); MCHC 31.9 g/dL (31.0-37.0); MCV 91.5 fL (80.0-100.0); MEAN PLATELET VOLUME 10.8 fL (7.4-10.4); MONOCYTES 10.3 % (2-11); NEUTROPHILS 77.9 % (40-80); PLATELET COUNT 312 10x3/uL (130-400); RBC 3.29 10x6/uL (4.20-6.10); RDW 17.8 % (11.5-14.5); WBC 13.7 10x3/uL (4.8-10.8)
[2019-10-25 05:32] LABS: ALBUMIN 2.6 g/dL (3.4-5.0); BILIRUBIN - DIRECT 0.35 mg/dL (0.00-0.30); BILIRUBIN - INDIRECT 0.31 mg/dL (0.00-1.00); BILIRUBIN - TOTAL 0.66 mg/dL (0.2-1.3); MAGNESIUM - SERUM 3.1 mg/dL (1.8-2.4); PHOSPHOROUS 7.8 mg/dL (2.5-4.9); PROTEIN - SERUM 5.9 g/dL (6.4-8.2); VANCOMYCIN - RANDOM 24.7 ug/mL (10.0-20.0)
--- NOTE | 2019-10-25 07:00 | NUR ---
RECEIVED BEDSIDE REPORT ON PATIENT AND ASSUMED CARE. PATIENT ALERT AND ORIENTED X 4, FOLLOWING COMMANDS STATES HE IS HUNGRY. VSS. RESTRAINTS DC'D. REPOSITIONED IN BED. SPO2 - 100% ON 1 LPM O2 VIA NC, REMOVED TO RA. DRESSINGS C/D/I. BBS - CLEAR, DIMINISHED IN THE BASES. CM - RATE 80S, A-FIB. HEAD TO TOE ASSESSMENT COMPLETED. HEMISPLIT RIGHT UPPER CHEST.
--- NOTE | 2019-10-25 07:33 | NUR ---
PATIENT GIVEN URINAL TO URINATE, VOIDS 120 ML OF KANDI, CLEAR URINE.
--- NOTE | 2019-10-25 09:26 | NUR ---
ASSISTED PATIENT UP TO BEDSIDE CHAIR, TOTAL ASSIST. BHARATH SIMMONS AT ROOM TO PLACE IV WITH US. VSS.
--- NOTE | 2019-10-25 09:55 | NUR ---
CONSENT OBTAINED FROM PATIENTS VIA TELEPHONE AND WITNESSED BY CASE MANAGEMENT. PATIENT TO OR VIA BED AND OR CREW. VSS.
--- NOTE | 2019-10-25 12:46 | NUR ---
Nutrition Follow-up: Nursing reports pt hungry this AM but NPO for hemosplit exchange. Noted Procalamine on hold; nursing reports 2/2 lost IV access. Noted Megace started 10/23. Diet: NPO PO intake: 0-10% Wt: 163.1# (10/24); 165.3# (10/21); 172.1# (10/17); 169.9# (10/15) Last BM: 10/22 Labs reviewed Meds noted: Megace -Rec resume diet following procedure as medically feasible. -Rec consider nutrition support if PO intake remains poor. -Monitor wt. -RD following.
--- NOTE | 2019-10-25 13:01 | NUR ---
PATIENT RECIEVED BACK FROM RECOVERY ROOM, AWAKE AND ALERT, SOME CONFUSION NOTED. VSS. RIGHT SUBCLAVIAN HEMOSPLIT IN PLACE, DRESSING C/D/I. RIGHT 20 GA UPPER ARM IV NSL, POSITIVE BLOOD RETURN AND FLUSHES EASILY. SCDS PLACED. PATRICA HOSE IN PLACE. SPO2 - 94% ON 2 LPM, BBS - CLEAR, DIMINISHED IN THE BASES.
--- NOTE | 2019-10-25 13:16 | NUR ---
PATIENT RESTING QUIETLY, VSS.
--- NOTE | 2019-10-25 13:24 | NUR ---
LAB DRAWN FROM RIGHT UPPER ARM AND SENT TO LAB.
[2019-10-25 13:36] LABS: ANION GAP 19.9 mmol/L (8-16); CALCIUM 9.2 mg/dL (8.5-10.1); CARBON DIOXIDE 21.3 mmol/L (21.0-32.0)
[2019-10-25 13:37] LABS: CREATININE - SERUM 8.7 mg/dL (0.6-1.3)
[2019-10-25 13:38] LABS: POTASSIUM - SERUM 6.2 mmol/L (3.5-5.1)
--- NOTE | 2019-10-25 13:47 | NUR ---
SPOKE TO LAVELLE MIGUEL APN WITH RENAL REGARDING CRITICAL POTASSIUM 6.2, FOR DIALYSIS TODAY.
--- NOTE | 2019-10-25 15:20 | NUR ---
REASSESSMENT COMPLETED. VSS. TURNED AND REPOSITIONED IN BED. DIALYSIS NURSE AT ROOM TO START DIALYSIS.
--- NOTE | 2019-10-25 16:24 | NUR ---
PATIENT RESTING QUIETLY, VSS. DIALYSIS ONGOING, TOLERATING WELL.
--- NOTE | 2019-10-25 16:52 | NUR ---
PATIENT SLEEPING, TOLERATING DIALYSIS WELL. VSS.
--- NOTE | 2019-10-25 18:32 | NUR ---
TOLERATED DIALYSIS, 1.5 L REMOVED. VSS.
--- NOTE | 2019-10-25 19:00 | NUR ---
PT ASSESSMENT COMPLETED AT THIS TIME, NO CHANGES NOTED FROM NURSE REPORT, PT IS AAOX2, PT DENIES COMPLAINTS AT THIS TIME, VSS
--- NOTE | 2019-10-25 21:10 | NUR ---
PT WANTING TO GET UP TO THE BEDSIDE CHAIR, PT WAS ASSISTED UP WITH MODERATE ASSISTANCE TO CHAIR
--- NOTE | 2019-10-25 21:51 | NUR ---
PT WANTING TO GO BACK TO BED AND PT WAS ASSISSTED BACK TO BED, NO COMPLAINTS OR DISTRESS NOTED
--- NOTE | 2019-10-25 23:00 | NUR ---
PT REASSESSMENT COMPLETED AT THIS TIME, NO CHANGES NOTED FROM PREVIOUS EXAM, VSS
[2019-10-26] VITALS (24 sets, daily range): BP systolic 97–138; BP diastolic 36–78
--- NOTE | 2019-10-26 01:00 | NUR ---
PT RESTING WITH EYES CLOSED, RESP EVEN AND NON LABORED, VSS
--- NOTE | 2019-10-26 03:00 | NUR ---
PT REASSESSMENT COMPLETED AT THIS TIME, NO CHANGES NOTED FROM PREVIOUS EXAM. VSS
--- NOTE | 2019-10-26 03:30 | NUR ---
PT AWKAE AND WANTING TO SIT UP IN THE BEDSIDE CHAIR, PT WAS GIVEN CHG BATH AND ASSISTED UP TO THE BEDSIDE CHAIR
--- NOTE | 2019-10-26 05:50 | NUR ---
PT REQUESTING TO GO BACK TO BED, PT WAS ASSISTED BACK TO BED AT THIS TIME, NO DISTRESS NOTED
[2019-10-26 06:49] LABS: BASOPHILS 0.3 % (0-2); EOSINOPHILS 1.3 % (0-7); HEMATOCRIT 29.9 % (42.0-54.0); HEMOGLOBIN 9.3 g/dL (13.5-17.5); IMMATURE GRANULOCYTES 0.4 % (0-5); LYMPHOCYTES 5.4 % (15-50); MCH 28.6 pg (26.0-34.0); MCHC 31.1 g/dL (31.0-37.0); MEAN PLATELET VOLUME 10.9 fL (7.4-10.4); MONOCYTES 9.5 % (2-11); NEUTROPHILS 83.1 % (40-80); PLATELET COUNT 256 10x3/uL (130-400); RBC 3.25 10x6/uL (4.20-6.10); RDW 18.5 % (11.5-14.5); WBC 12.5 10x3/uL (4.8-10.8)
[2019-10-26 10:08] LABS: CALCIUM 8.7 mg/dL (8.5-10.1); CARBON DIOXIDE 24.6 mmol/L (21.0-32.0); CREATININE - SERUM 6.6 mg/dL (0.6-1.3)
[2019-10-26 10:15] LABS: POTASSIUM - SERUM 4.6 mmol/L (3.5-5.1)
[2019-10-26 10:19] LABS: PLATELET ESTIMATE NORMAL
[2019-10-26 10:20] LABS: ANISOCYTOSIS 1+; CRENATED CELLS OCC; ROULEAUX OCC
--- NOTE | 2019-10-26 16:48 | NUR ---
Rehab Note- Acute Inpatient Rehab prescreen order received. The patient is a good inpatient rehab candidate if in agreeance to [facility] Acute Inpatient Rehab. Will follow at this time. Thank you for this referral! Leena Altamirano RN Clinical Liaison, [facility] Rehab
--- NOTE | 2019-10-26 19:15 | NUR ---
PT ALERT, CONFUSED, FOLLOWS COMMANDS, LUNGS CLEAR, O2 @ 2L VIA N/C, RIGHT UPPER ARM PIV INTACT AND SL, RIGHT CHEST HEMOSPLIT INTACT, URINAL IN REACH, VITALS STABLE
--- NOTE | 2019-10-26 23:00 | NUR ---
PT RESTING QUIETLY WITH EYES CLOSED, WILL CONT TO MONITOR
[2019-10-27] VITALS (10 sets, daily range): BP systolic 114–155; BP diastolic 44–121
--- NOTE | 2019-10-27 01:15 | NUR ---
PT C/O BEING COLD, PROVIDED WARM BLANKET, VITALS STABLE
--- NOTE | 2019-10-27 03:00 | NUR ---
PT CONT TO C/O BEING COLD, PLACED BEAR HUGGER BLANKET ON PT, TEMP NORMAL, WILL CONT TO MONITOR
--- NOTE | 2019-10-27 04:55 | NUR ---
PT PULLED OUT PIV, FOUND IN BED WITH CATHETER INTACT
--- NOTE | 2019-10-27 05:00 | NUR ---
PT TRYING TO GET OUT OF BED, BATHED PER STAFF AND ASSISTED UP TO CHAIR
--- NOTE | 2019-10-27 06:29 | NUR ---
PT TRYING TO GO BACK TO BED BY HIMSELF, INSTRUCTED PT HE NEEDED TO SIT UP LONGER TO BUILD UP STRENGTH AND ENDURANCE, PLACED PT BACK IN CHAIR
--- NOTE | 2019-10-27 07:13 | NUR ---
PT NEEDING MORNING WEIGHT PT IN THE CHAIR AND WANTED HIM TO STAY DID A WEIGHT BY STANDING ON THE SCALE AND WAS SIGNIFICANTLY LESS THEN THE LAST RECORDED. WEIGHT WAS 122.8. WILL GET A BED SCALE WEIGHT AND COMPARE WHEN HE GETS BACK TO BED.
--- NOTE | 2019-10-27 09:00 | NUR ---
RECEIVED HANDOFF REPORT FROM CEDRICK RN AND ASSUMED CARE OF PATIENT. PATIENT SITTING UP IN BEDSIDE CHAIR, VSS, IN ROOM, NO NEEDS AT THIS TIME.
--- NOTE | 2019-10-27 10:13 | NUR ---
PATEINT WALKED 160 FT IN [place] WITH WALKER AND PT. FERNANDEZ.
--- NOTE | 2019-10-27 10:27 | NUR ---
REPORT CALLED TO LETICIA SIMMONS ON MED II TO TRANSPORTED PATIENT TO ROOM 2116 VIA WHEELCHAIR. VSS.
--- NOTE | 2019-10-27 12:32 | NUR ---
Nutrition Follow-up: reports pt ate <50% this AM. Denies N/V, swallowing difficulties. Agreed to try Nepro at lunch today. Procal @ 75. Diet: Diabetic, Puree with Thin Liquids Wt: 153.2# (10/25); 157.6# (10/22); 165.3# (10/21); 160.9# (10/19); 169.9# (10/15) Labs reviewed Meds noted: Megace -Monitor K+/PO4; may consider renal carb consistent diet with consistencies per ST. -Encourage PO intake and honor food preferences within diet restrictions. -Nepro sent with lunch today for pt trial. -Monitor wt. -RD following.
--- NOTE | 2019-10-28 07:35 | MORECARE ---
CASE MANAGEMENT DISCHARGE SUMMARY PATIENT: GILDA CONTRERAS UNIT: [id number] ADM DATE: 10/12/19 AGE: 79 : 39 SEX: M ROOM/BED: D.5545 AUTHOR: TATY,DOC PHYSICIAN: REFERRING PHYSICIAN: RAH BLAKE MD DATE OF SERVICE: 10/28/19 Discharge Plan Patient Name: GILDA CONTRERAS Facility: [facility]:[place] : 1940 Planned Disposition: Home Anticipated Discharge Date: Discharge Date: 10/27/2019 Expected LOS: Initial Reviewer: [email or web address] Initial Review Date: 10/12/2019 Generated: 10/28/19 8:34 am DCP- Discharge Planning Updated by [email or web address]: Shirlene Gallardo on 10/13/19 6:[address] Patient Name: GILDA CONTRERAS Admission Status: Elective Accout number: [id number] Admission Date: 10-12-2019 : 1940 Admission Diagnosis: Attending: RAH BLAKE Current LOS: 1 Anticipated DC Date: Planned Disposition: Home Primary Insurance: MEDICARE A & B Discharge Planning Comments: CM met with patient at bedside after explaining CM role and obtaining verbal consent. Patient lives at home with his where he is independent with his care and plans to return there upon discharge. Patient feels this would be a safe discharge. CM discussed availability / needs of home health and medical equipment. Patient states if he needs HH he wants [facility] in [place] BALJINDER signed. Patient has dialysis MWF in [place] @ 0600. CM will notify Yudi with patient pathways of admission. Patient denies any discharge needs at this time. Patient states he will have his family drive him home upon discharge. CM will continue to follow and assist as needed with discharge planning / needs. Sticker Hand: Shirlene Gallardo DCPIA - Discharge Planning Initial Assessment Updated by [email or web address]: Shirlene Gallardo on 10/13/19 6:59 pm * Is the patient Alert and Oriented? Yes * How many steps to enter\exit or inside your home? * PCP [facility] * Pharmacy [facility] [place] * Preadmission Environment Home with Family * ADLs Independent * Equipment None * List name and contact numbers for known caregivers / representatives who currently or will assist patient after discharge: SANDIE CONTRERAS - [facility] - [phone] * Verbal permission to speak to the caregivers and representatives has been obtained from the patient. Yes * Community resources currently utilized None * Additional services required to return to the preadmission environment? No * Can the patient safely return to the preadmission environment? Yes * Has this patient been hospitalized within the prior 30 days at any hospital? No Last DP export: 10/13/19 6:02 p Patient Name: GILDA CONTRERAS Page [id number] at 0735 All edits/amendments must be made on the electronic document DICTATION DATE: 10/28/19733 [employer] ARCHITECT: WILLIAM 10/28/1935 RPT#: [id number] DC DATE:10/27/19 STATUS: DIS IN [facility] [address] [place] [address] END OF REPORT
== END 2019-10-27 19:06 | DRG 233 ==
LOC: D.CATH 11:11 → D.CVICU 16:20 → D.CATH 21:46 → D.CVICU 21:47 → D.M2 10-27 10:29
PROVIDERS: Internal Medicine; Thoracic Surgery (Cardiothoracic Vascular Surgery); ADMIT Internal Medicine Interventional Cardiology; ATTEND Internal Medicine Interventional Cardiology
PROC: B2111ZZ Fluoroscopy of Multiple Coronary Arteries using Low Osmolar Contrast (ICD-10-PCS; 2019-10-12)
PROC: B2151ZZ Fluoroscopy of Left Heart using Low Osmolar Contrast (ICD-10-PCS; 2019-10-12)
PROC: 4A023N7 Measurement of Cardiac Sampling and Pressure, Left Heart, Percutaneous Approach (ICD-10-PCS; 2019-10-12)
PROC: B3051ZZ Plain Radiography of Bilateral Common Carotid Arteries using Low Osmolar Contrast (ICD-10-PCS; 2019-10-14)
PROC: 5A02210 Assistance with Cardiac Output using Balloon Pump, Continuous (ICD-10-PCS; principal; 2019-10-14 15:15)
PROC: 02100Z9 Bypass Coronary Artery, One Artery from Left Internal Mammary, Open Approach (ICD-10-PCS; 2019-10-15)
PROC: 021209W Bypass Coronary Artery, Three Arteries from Aorta with Autologous Venous Tissue, Open Approach (ICD-10-PCS; 2019-10-15)
PROC: 06BP4ZZ Excision of Right Saphenous Vein, Percutaneous Endoscopic Approach (ICD-10-PCS; 2019-10-15)
PROC: 5A1221Z Performance of Cardiac Output, Continuous (ICD-10-PCS; 2019-10-15)
PROC: B24BZZ4 Ultrasonography of Heart with Aorta, Transesophageal (ICD-10-PCS; 2019-10-15)
PROC: 05H533Z Insertion of Infusion Device into Right Subclavian Vein, Percutaneous Approach (ICD-10-PCS; 2019-10-25)
DX: I25.10 Atherosclerotic heart disease of native coronary artery without angina pectoris (principal); N18.6 End stage renal disease; I50.23 Acute on chronic systolic (congestive) heart failure; J96.01 Acute respiratory failure with hypoxia; I13.2 Hypertensive heart and chronic kidney disease with heart failure and with stage 5 chronic kidney disease, or end stage renal disease; N17.9 Acute kidney failure, unspecified; J98.11 Atelectasis; I25.5 Ischemic cardiomyopathy; K21.9 Gastro-esophageal reflux disease without esophagitis; E11.22 Type 2 diabetes mellitus with diabetic chronic kidney disease; Z99.2 Dependence on renal dialysis; D72.829 Elevated white blood cell count, unspecified; D63.1 Anemia in chronic kidney disease; R53.81 Other malaise; N40.0 Benign prostatic hyperplasia without lower urinary tract symptoms; R41.82 Altered mental status, unspecified

== ENCOUNTER 2019-10-27 19:00 | Inpatient (IN) | payer MEDICARE, OTHER ==
[~2019-10-27] VITALS: Ht 177.8 cm; Wt 70.3 kg
[~2019-10-27 19:00] MED LIST changes: +CATAPRES0.2 MG PO; +COREG 3.1253.125 MG PO; +COZAAR100 MG PO; +FUROSEMIDE40 MG PO; +LEVOCETIRIZINE PO; +NORVASC5 MG PO
--- NOTE | 2019-10-27 19:30 | NUR ---
REPORT GIVEN BY TROY SINHA
--- NOTE | 2019-10-27 20:00 | NUR ---
MADE ROUNDS TO MEET PT. LET PT KNOW MY NAME AND THAT I WOULD BE HIS NURSE. HE HAS NO C/O AT THIS TIME. CHEST DRESSINGS VIEWED. NO DRAINAGE NOTED. HIS HARVEST SITES LOOK ALMOST HEALED. NO DRESSING ON EITHER OF THE SITES. PT HAS SOME SUTURES ON TOP OF HIS HEAD. PT PICKS AT HIS SCALP AND MAKES HIMSELF BLEED. HE WAS ASKED TO TRY NOT TO DO THIS. PT IS VERY CONFUSED. HE CANNOT FIGURE OUT EXACTLY WHERE HE IS BUT ITS NOT WHERE HE THINKS IT IS. EXPLAINED TO PT BY MYSELF AND MANY OTHER STAFF MEMBERS THAT HE WAS ON ANOTHER UNIT AND HIS DRReva TRANSFERED HIM TO REHAB. HE STILL DOESN'T BELIEVE IT.
--- NOTE | 2019-10-27 22:00 | NUR ---
CHECKED IN ON PT. HE HAS NOT C/O OF NEEDS AT THIS TIME. STILL CONFUSED.
[2019-10-27 23:05] VITALS: BP 163/45
--- NOTE | 2019-10-27 23:15 | NUR ---
IN PT ROOM GIVING MEDICATION. HE TAKES HIS PILL EASILY WITH WATER. NOTED THAT HIS GOWN AND HIS BED PAD HAD BM ON THEM. THESE ITEMS WERE CHANGED. PT HAD A BANDAID ON HIE RIGHT MIDDLE FINGER THAT HAS BM UNDERNEATH THE DRESSING. THIS BAIDAIDE WAS REMOVED, FINGER CLEANED OFF AND NO DRESSING WAS REAPPLIED. BLOOD SUGAR TAKEN AND THE RESULTS 130.
[2019-10-28] VITALS: BP 139/72
--- NOTE | 2019-10-28 | NUR ---
PT IS RESTING QUIETLY WITH HIS EYES CLOSED.
[2019-10-28 00:44] VITALS: BP 163/45
--- NOTE | 2019-10-28 02:10 | NUR ---
PT CONT TO REST QUIETLY. NO NEW C/0 OR NEEDS.
--- NOTE | 2019-10-28 03:30 | NUR ---
PT WAS FOUND SITTING ON THE SIDE OF THE BED WITH HIS CHEST BANDAGE OFF AND HIS RIGIHT CHEST HEMOSPLIT BANDAGE OFF WITH THE CATHETER IN HIS HAND TO PULL IT OUT. ALL DRESSINGS WERE REAPPLIED WITH NEW. PT IS VERY CONFUSED.
[2019-10-28 05:44] VITALS: BP 139/72
--- NOTE | 2019-10-28 05:50 | NUR ---
PT IS AWAKE AND ALERT AT THIS TIME BUT STILL CONFUSED. HE TOOK HIS MEDS WELL. HE HAS NO C/O AT THIS TIME. HE USED HIS IS FOR ME X5. HE GOT UP TO ALMOST 1000 EACH TIME. I EXPLAINED THAT HE NEEDS TO USE THIS ALOT DURING THE DAY.
--- NOTE | 2019-10-28 07:40 | NUR ---
PT IN BED NO NEEDS NOTED, DIET ORDER CHANGE FROM PUREE TO MECHANICAL SOFT, FLUIDS/CALL LIGHT WITHIN REACH, FALL PRECAUTIONS IN PLACE
[2019-10-28 09:20] LABS: ANION GAP 14.8 mmol/L (8-16); CALCIUM 8.8 mg/dL (8.5-10.1)
[2019-10-28 09:22] LABS: POTASSIUM - SERUM 3.8 mmol/L (3.5-5.1)
[2019-10-28 09:40] LABS: BASOPHILS 0.4 % (0-2); EOSINOPHILS 0 % (0-7); HEMATOCRIT 29.7 % (42.0-54.0); HEMOGLOBIN 9.3 g/dL (13.5-17.5); IMMATURE GRANULOCYTES 0.3 % (0-5); LYMPHOCYTES 5.4 % (15-50); MCH 29.2 pg (26.0-34.0); MCHC 31.3 g/dL (31.0-37.0); MCV 93.4 fL (80.0-100.0); MEAN PLATELET VOLUME 11.2 fL (7.4-10.4); MONOCYTES 10.1 % (2-11); NEUTROPHILS 83.8 % (40-80); PLATELET COUNT 325 10x3/uL (130-400); RBC 3.18 10x6/uL (4.20-6.10); RDW 19.4 % (11.5-14.5); WBC 10.7 10x3/uL (4.8-10.8)
--- NOTE | 2019-10-28 11:48 | NUR ---
PATIENT ADMITTED TO REHAB FROM ACUTE FLOOR. DR. BUSH IS PATIENT PCP. HE HAS HD ON M-W-F @ 0600 AT [place]. AT DISCHARGE HE WOULD LIKE [facility]. DISCHARGE PLANS ARE FOR HIM TO RETURN HOME WITH FAMILY. WILL CONTINUE TO FOLLOW WITH PATIENT.
[2019-10-28 12:00] VITALS: BP 120/55
[2019-10-28 13:17] VITALS: Ht 177.8 cm; Wt 70.3 kg
--- NOTE | 2019-10-28 14:05 | NUR ---
SPOKE WITH PATIENT SPOUSE AND AT DISCHARGE IF PATIENT IS UNABLE TO DISCHARGE HOME SHE WOULD LIKE FOR HIM TO DISCHARGE TO [facility] (WILL SPEAK WITH JESICA. WILL CONTINUE TO FOLLOW WITH PATIENT.
--- NOTE | 2019-10-28 20:00 | NUR ---
PATIENT RECEIVED SITTING UP IN BED. ASSESSMENT & VITAL SIGNS DONE. NO C/O PAIN OR DISTRESS. BED LOW. ALARM FACILITIES ADMINISTRATOR LIGHT WITHIN REACH. WILL CONTINUE TO MONITOR.
[2019-10-28 21:53] VITALS: BP 141/59
--- NOTE | 2019-10-29 00:33 | NUR ---
I have reviewed this patient and I concur with the Shift Assessment completed by the Licensed Practical Nurse today this shift.
--- NOTE | 2019-10-29 01:06 | NUR ---
OOB INTO & OUT OF WHEELCHAIR. PATIENT C/O HEAD COLD. PATIENT BACK IN BED. BLANKETS ON BODY. PATIENT BED ALARM ON. BED LOW. CALL LIGHT WITHIN REACH. WILL CONTINUE TO MONITOR.
[2019-10-29 06:12] VITALS: BP 149/63
--- NOTE | 2019-10-29 07:14 | NUR ---
PT ASLEEP, AROUSES EASILY TO VOICE, NO NEEDS NOTED, FALL PRECAUTIONS IN PLACE, FLUIDS/CALL LIGHT WITHIN REACH
--- NOTE | 2019-10-29 08:54 | RHP ---
PATIENT: GILDA CONTRERAS MEDICAL RECORD: [id number] ACCOUNT: [id number] [facility] AD[facility]ION DATE: 10/27/19 REHABILITATION HISTORY AND PHYSICAL EXAMINATION POST ADMISSION PHYSICIAN EXAMINATION ADMITTING DIAGNOSIS: Metabolic encephalopathy. HISTORY OF PRESENT ILLNESS: The patient is an 79-year-old gentleman with end-stage renal disease, who gets dialysis 3 times a week. He underwent a scheduled cardiac catheterization on 10/12/2019, he was found to have severe ischemic cardiomyopathy and multivessel disease. He was admitted to CV ICU for cardiovascular surgery. He underwent a coronary artery bypass grafting times 4 with endoscopic saphenous vein graft and diagnosis of coronary artery disease. He has got chronic kidney failure, chronic hemodialysis, ischemic cardiomyopathy. He has been on a balloon pump and was placed prior to the coronary artery bypass grafting, it was removed on 10/16/2019. He has been seen by pulmonary throughout his stay. The patient has also been seen by nephrology and neurology for some confusion, agitation and combativeness that displayed after sedation. The patient has had some elevation of his hepatic enzymes throughout his stay. His ammonia level has been normal. The patient has also had some problems with hydronephrosis in the past. He has been receiving physical and speech therapy throughout his stay. He has had prolonged hospital stay secondary to therapy. He needs to be monitored closely for his cardiac status secondary to his recent coronary artery bypass grafting. He has received multiple blood products, been on supplemental O2, monitoring his pain control. He has been on supplements for his diet including Megace and procalamine. The patient is also on an electrolyte protocol. He has got balance deficits, decreased activity tolerance, impaired mobility, decreased quality of life, decreased strength. He has inability to care for himself. These are all barriers to his discharge home. He lives at home with his , was independent with ADLs and mobility prior to this. Currently set up for max assist for his ADLs, mod assist for his mobility with use of supplemental O2. He and his family would like for him to return home at his prior level of functioning or better. COMORBIDITIES: Include weakness, metabolic encephalopathy, coronary artery bypass grafting, arrhythmia, end-stage renal disease, iron-deficient anemia, BPH, elevated LFTs, pneumonia, and coronary artery disease. 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 PAST SURGICAL HISTORY: Includes colon resection. He has had a left upper extremity fistula, bladder stone removed. ALLERGIES: MORPHINE. CURRENT MEDICATIONS: Include Flomax 0.4 mg daily, multivitamin daily, he is on losartan 100 mg daily, finasteride 5 mg daily, atorvastatin 20 mg daily, aspirin 81 mg daily, allopurinol 100 mg daily, he is on Amaryl 4 mg daily, carvedilol 3.125 mg b.i.d. with meals, Protonix 20 mg daily, furosemide 40 mg b.i.d., Timoptic eyedrops b.i.d., he is on Xalatan eye drops at bedtime, he is on Norvasc 5 mg b.i.d., [place] 5/325 one tab every 4 to 6 hours p.r.n., clonidine HISTORY AND PHYSICAL [id number] GILDA CONTRERAS 0.2 mg every 8 hours p.r.n. elevated blood pressure with systolic greater than 160 and vitamin D 5000 units every week. HABITS: No alcohol or tobacco use. FAMILY HISTORY: Noncontributory. SOCIAL HISTORY: The patient hopes to return back home and get back to his prior level of functioning. REVIEW OF SYSTEMS: GENERAL: Does complain of some weakness and fatigue. HEENT: Denies cold, cough, or congestion. CARDIOVASCULAR: Denies any chest pain. PHYSICAL EXAMINATION: VITAL SIGNS: Stable, afebrile. GENERAL: Elderly gentleman in no acute distress upon exam. HEENT: Normocephalic and atraumatic. Mucosa moist. NECK: Supple. No lymphadenopathy. LUNGS: Clear at this time in upper bansal. HEART: Regular rate and rhythm. No murmurs, rubs or gallops. ABDOMEN: Soft, benign and nondistended. Positive bowel sounds times 4. EXTREMITIES: No clubbing, cyanosis or edema. NEUROLOGIC: Does have proximal muscle weakness. LABORATORY DATA: His labs are pending at this time. ASSESSMENT: This is an 79-year-old gentleman who is admitted to rehab with a working diagnosis of metabolic encephalopathy status post recent coronary artery bypass grafting. The patient has potential to make improvement. We instituted the following multidisciplinary therapies including, but not limited to physical, occupational, respiratory, speech, nutritional services, prosthetics and orthotics. Given his complex medical condition and risk for more complications, rehabilitation services cannot be provided at a low level of care such as penitentiary facility. PLAN: 1. Admit to [facility] for intensive inpatient therapy to include the following disciplines; A. Physical therapy to improve gait, all transfer skills and bed mobility to a modified independent level. B. Occupational therapy to improve activities of daily living. C. Case management to assist with discharge planning and placement options. D. Nutrition to assist with nutritional needs. E. Rehabilitation nursing to assist in monitoring the patient's underlying medical conditions and to assist with any type of bowel or bladder management. 2. The patient's current medication and medical care will be continued. 3. The patient will be placed on standard fall precautions. 4. The patient's estimated length of stay is approximately 7-10 days. 5. We will discuss this patient during care team staff meeting this week. TRANSINT:[id number] Voice Confirmation ID: [id number] DOCUMENT ID: [id number] HISTORY AND PHYSICAL [id number] GILDA CONTRERAS notes whether there has been none or any medical/functional change since admission: - No change since prescreen. GIANNA attests patient continues to be appropriate for IRF: - Continues to be appropriate. MIL SILVA MD at 0854 CC: [id number] DICTATION DATE: 10/28/19 09 [employer] IN[employer]URE CONSULTANT: 10/28/19 1133 ADM IN [place] [address] [place] [address]
[2019-10-29 09:52] LABS: BASOPHILS 0.4 % (0-2); EOSINOPHILS 0 % (0-7); HEMATOCRIT 28.9 % (42.0-54.0); IMMATURE GRANULOCYTES 0.1 % (0-5); LYMPHOCYTES 6.9 % (15-50); MCH 28.5 pg (26.0-34.0); MCHC 31.1 g/dL (31.0-37.0); MCV 91.5 fL (80.0-100.0); MEAN PLATELET VOLUME 10.9 fL (7.4-10.4); MONOCYTES 12.5 % (2-11); NEUTROPHILS 80.1 % (40-80); PLATELET COUNT 302 10x3/uL (130-400); RBC 3.16 10x6/uL (4.20-6.10); RDW 19.3 % (11.5-14.5); WBC 8.4 10x3/uL (4.8-10.8)
[2019-10-29 10:07] LABS: ANION GAP 16.6 mmol/L (8-16); BILIRUBIN - TOTAL 0.69 mg/dL (0.2-1.3); CALCIUM 8.6 mg/dL (8.5-10.1); CARBON DIOXIDE 24.3 mmol/L (21.0-32.0); POTASSIUM - SERUM 3.9 mmol/L (3.5-5.1); PROTEIN - SERUM 6.3 g/dL (6.4-8.2)
[2019-10-29 10:27] LABS: PLATELET ESTIMATE NORMAL
[2019-10-29 10:29] LABS: CREATININE - SERUM 7.6 mg/dL (0.6-1.3)
[2019-10-29 12:00] VITALS: BP 120/58
--- NOTE | 2019-10-29 15:41 | NUR ---
PT UP TO CHAIR C/O HAVING TO STAY HERE, WANTS TO GO HOME, STATES BUTT GETS TIRED OF LAYING IN BED, ANGRY BECAUSE HE HAS ALARMS ON BED AND CHAIR.
[2019-10-29 18:13] VITALS: BP 108/53
--- NOTE | 2019-10-29 19:40 | NUR ---
PT SENT TO DIALYSIS BY BED. DENIES NEEDS BEFORE LEAVING UNIT.
[2019-10-30 00:31] VITALS: BP 118/67
--- NOTE | 2019-10-30 01:12 | NUR ---
I have reviewed this patient and I concur with the Shift Assessment completed by the Licensed Practical Nurse today this shift.
[2019-10-30 06:14] VITALS: BP 129/69
--- NOTE | 2019-10-30 07:30 | NUR ---
RESTING IN BED WITH EYES CLOSED, NO S/S OF DISTRESS NOTED, RESP EVEN AND UNLABORED, ASSESSMENT AND V/S COMPLETE, C/L AND FLUIDS IN REACH.
[2019-10-30 08:11] VITALS: BP 110/57
--- NOTE | 2019-10-30 12:00 | NUR ---
SITTING ON SIDE OF BED EATING LUNCH, DENIES ANY NEEDS AT THIS TIME, C/L AND FLUIDS IN REACH.
[2019-10-30 12:37] VITALS: BP 118/56
--- NOTE | 2019-10-30 15:58 | NUR ---
RESTING IN BED WITH EYES CLOSED, NO S/S OF DISTRESS NOTED, RESP EVEN AND UNLABORED, C/L AND FLUIDS IN REACH.
[2019-10-30 18:16] VITALS: BP 103/48
--- NOTE | 2019-10-30 19:25 | NUR ---
PT SITTING UP IN WHEELCHAIR. CL IN REACH. DENIES NEEDS AT THIS TIME. CHAIR ALARM ON. RESP EVEN AND UNLABORED. LUNGS CLEAR. BOWEL ACTIVE X4. A/O X3. CONFUSED AT TIMES. WILL CONTINUE TO MONITOR.
--- NOTE | 2019-10-30 21:12 | NUR ---
RECHECKED BS 64 NOW WAS 35 ORAL GLUCOSE WAS GIVEN AND 240 OZ OF ORANGE JUICE AND PEANUT BUTTER.
--- NOTE | 2019-10-31 00:31 | NUR ---
I have reviewed this patient and I concur with the Shift Assessment completed by the Licensed Practical Nurse today this shift.
[2019-10-31 00:37] VITALS: BP 135/96
--- NOTE | 2019-10-31 04:00 | NUR ---
AT 0325 THIS NURSE CHECKED BLOOD SUGAR DUE TO PATIENT NOT RESPONDING TO VERBAL STIMULI AND BLOOD SUGAR WAS 31. RECIEVED ORAL GLUCOSE FROM INAS PT STILL NOT RESPONDING TO INGEST MEDICATION. THIS NURSE RUBBED GLUCOSE ON TONGUE AND GUMS. THEN 0335 IM GLUCOGEN WAS GIVEN IN LEFT DELTOID BLOOD SUGAR AFTER WAS 33. 0345 IV WAS STARTED BY CHARGE NURSE TO RIGHT WRIST 22 GUAGE. BLOOD SUGAR THEN WAS 38. AT 0350 D50 25 ML WAS GIVEN VIA IV. FSBS AT 0355 WAS 134 AND PT IS RESPONSIVE AT THIS TIME AND OPENING EYES AND TALKING. VITALS AFTERWARDS WAS 190/79 RIGHT ARM AND PULSE 81. WILL CONTINUE TO MONITOR.
[2019-10-31 06:14] VITALS: BP 137/65
--- NOTE | 2019-10-31 06:35 | NUR ---
PT WAS 80 GAVE SNACK OF VANILLA WAFERS AND PEANUT BUTTER. BS BACK UP TO 147. WCTM
--- NOTE | 2019-10-31 08:00 | NUR ---
AWAKE AND ALERT EATING BREAKFAST, COHERENT, TOOK MEDS WELL, V/S AND ASSESSMENT COMPLETED, DENIES ANY NEEDS AT THIS TIME, C/L AND FLUIDS IN REACH.
[2019-10-31 09:13] VITALS: BP 112/58
[2019-10-31 12:38] VITALS: BP 155/77
--- NOTE | 2019-10-31 12:58 | NUR ---
RESTING IN BED WATCHING TV, AWAKE AND ORIENTED, DENIES ANY NEEDS AT THIS TIME, C/L AND FLUIDS IN REACH.
--- NOTE | 2019-10-31 16:02 | NUR ---
UP SITTING ON SIDE OF BED, DENIES ANY NEEDS AT THIS TIME, C/L AND FLUIDS IN REACH.
[2019-10-31 18:41] VITALS: BP 159/78
--- NOTE | 2019-10-31 19:32 | NUR ---
PT LYING IN BED WATCHING TV. CL IN REACH. BED IN LOW SIDE RAILS X2. RESP EVEN AND UNLABORED. LUNGS CLEAR. BOWEL ACTIVE X4. DENIES NEEDS AT THIS TIME. BED ALARM ON. WILL CONTINUE TO MONITOR.
--- NOTE | 2019-10-31 20:47 | NUR ---
PT BS 71 SNACK GIVEN
--- NOTE | 2019-10-31 22:36 | NUR ---
I have reviewed this patient and I concur with the Shift Assessment completed by the Licensed Practical Nurse today this shift.
--- NOTE | 2019-10-31 23:53 | NUR ---
PT BS 61 PEANUT BUTTER AND LIOR CRACKERS GIVEN. WCTM
[2019-11-01 00:16] VITALS: BP 150/72
--- NOTE | 2019-11-01 03:35 | NUR ---
PT LYING IN BED ON RIGHT SIDE EYES CLOSED RESTING. RR EVEN AND UNLABORED. CALL LIGHT WITHIN REACH. BED ALARM ON. CPOC
--- NOTE | 2019-11-01 05:10 | NUR ---
DR. ALEXANDER WAS IN ROOM TALKING WITH PT. THIS NURSE UPDATED DR ABOUT BLOOD SUGARS DROPPING THE PREVIOUS TWO NIGHTS DOWN TO 30'S. DR HERMOSILLO'Yamel AGRAWAL AND LINDA. STATED IF WE NEED D10 TONIGHT CALL DAYTIME CAREGIVER LABEL PINKER SINCE PT DID NOT DROP TO THE 30'S TONIGHT BUT IF HE DOES IT AGAIN CALL LABEL PINKER AND START D10 THROUGH IV.
--- NOTE | 2019-11-01 05:47 | NUR ---
CHECKED PT BLOOD SUGAR DUE TO BEING SLUGGISH AND SLOW TO RESPOND AFTER DOCTOR BENJAMIN LEFT ROOM. BLOOD SUGAR WAS 33. CALLED DOC BENJAMIN BACK AND HE ORDERED D5W AT 100ML/HR AND UPDATE NURSE PRACT. DURING THE DAY. GAVE PATIENT MILK AND PEANUT BUTTER WITH LIOR CRACKERS. D5W STARTED TO IV IN RIGHT WRIST. WILL CONTINUE TO MONITOR.
[2019-11-01 06:24] VITALS: BP 161/83
[2019-11-01 07:00] LABS: BASOPHILS 0.5 % (0-2); EOSINOPHILS 6.3 % (0-7); HEMATOCRIT 27.7 % (42.0-54.0); HEMOGLOBIN 8.5 g/dL (13.5-17.5); IMMATURE GRANULOCYTES 0.1 % (0-5); LYMPHOCYTES 7.2 % (15-50); MCH 28.4 pg (26.0-34.0); MCHC 30.7 g/dL (31.0-37.0); MCV 92.6 fL (80.0-100.0); MEAN PLATELET VOLUME 10.7 fL (7.4-10.4); MONOCYTES 10.6 % (2-11); NEUTROPHILS 75.3 % (40-80); PLATELET COUNT 291 10x3/uL (130-400); RBC 2.99 10x6/uL (4.20-6.10); RDW 19.6 % (11.5-14.5); WBC 10.3 10x3/uL (4.8-10.8)
[2019-11-01 07:04] LABS: ANION GAP 17.5 mmol/L (8-16); CALCIUM 8.2 mg/dL (8.5-10.1); CARBON DIOXIDE 22.7 mmol/L (21.0-32.0); CREATININE - SERUM 8.9 mg/dL (0.6-1.3); POTASSIUM - SERUM 4.2 mmol/L (3.5-5.1)
--- NOTE | 2019-11-01 07:30 | NUR ---
RESTING IN BED, AWAKE AND ALERT, V/S AND ASSESSMENT COMPLETE, C/L AND FLUIDS IN REACH.
[2019-11-01 12:15] VITALS: BP 138/60
--- NOTE | 2019-11-01 12:38 | NUR ---
UP IN W/C EATING LUNCH, DENIES ANY NEEDS AT THIS TIME, D5 IV RUNNING AT 100ML/HR, NO REDNESS OR SWELLING AT IV SITE, C/L AND FLUIDS IN REACH.
--- NOTE | 2019-11-01 14:06 | NUR ---
Nutrition Follow-up: Chart reviewed. Patient continues on maintenance HD. Diet: Renal PO intake: ~58% average x last 6 meals recorded; he reports that he has a "good" appetite. States that he "stuffs his face every chance that he gets." He has eaten almost all of his lunch tray. He has been drinking Nepro with meals as well. Last BM: 10/30/19. WT: 153# (11/01/19); Admit WT: 154# (10/28/19) Meds noted: SSI. Labs noted: BUN 76(H), Cr 8.9(H), GFR 6(L) Recommend continue current diet. Will add Nepro to diet order. RD following.
--- NOTE | 2019-11-01 17:14 | NUR ---
PATIENT AT DIALYSIS
--- NOTE | 2019-11-01 18:20 | NUR ---
1630 AND 1700 MED NOT GIVEN D/T PATIENT IN DIALYSIS
--- NOTE | 2019-11-01 22:03 | NUR ---
PATIENT GIVEN 3 UNITS OF HUMULIN. HALF OF SCHEDULED DOSE. PATIENT FSBS CRASHES DURING NIGHTTIME. WILL GIVE SNACK & CONTINUE TO MONITOR.
[2019-11-01 23:59] VITALS: BP 128/46
--- NOTE | 2019-11-02 01:48 | NUR ---
I have reviewed this patient and I concur with the Shift Assessment completed by the Licensed Practical Nurse today this shift.
--- NOTE | 2019-11-02 03:56 | NUR ---
PATIENT ALARM GOING OFF. THIS NURSE WENT INTO PATIENT'S ROOM. PATIENT SITTING ON SIDE OF BED. IV TO RIGHT HAND PULLED OFF. CHARGE NURSE USED IV KIT & 22 GAUGE NEEDLE TO RESITE IV TO RIGHT WRIST. IV PATENT & IV SITE WRAPPED WITH COBAIN TO KEEP IN PLACE. PATIENT IV D10 @ 50ML/HR. IV SITE PATENT. PATIENT TOLERATED IT WELL. BED LOW. ALARM SLAB INSTALLER LIGHT ON PATIENT CHEST. WILL CONTINUE TO MONITOR.
[2019-11-02 06:35] VITALS: BP 141/73
--- NOTE | 2019-11-02 07:26 | NUR ---
RESTING. RESP EVEN AND UNLABORED. BED ALARM ON. CL IN REACH.
[2019-11-02 10:12] LABS: HEMATOCRIT 27.5 % (42.0-54.0); HEMOGLOBIN 8.6 g/dL (13.5-17.5); MCH 28.4 pg (26.0-34.0); MCHC 31.3 g/dL (31.0-37.0); MCV 90.8 fL (80.0-100.0); MEAN PLATELET VOLUME 10.8 fL (7.4-10.4); PLATELET COUNT 257 10x3/uL (130-400); RBC 3.03 10x6/uL (4.20-6.10); RDW 18.7 % (11.5-14.5); WBC 8.3 10x3/uL (4.8-10.8)
[2019-11-02 10:46] LABS: ANION GAP 16.5 mmol/L (8-16); BILIRUBIN - TOTAL 0.76 mg/dL (0.2-1.3); CALCIUM 8.1 mg/dL (8.5-10.1); CARBON DIOXIDE 23.5 mmol/L (21.0-32.0); CREATININE - SERUM 6.4 mg/dL (0.6-1.3); PROTEIN - SERUM 6.4 g/dL (6.4-8.2); THYROID STIMULATING HORMONE 2.29 uIU/mL (0.36-3.74)
[2019-11-02 12:07] VITALS: BP 149/78
--- NOTE | 2019-11-02 12:42 | NUR ---
CALLED [facility] FOR RENAL ORDERS. BS 370. DEXTROSE IVF HELD/INSULIN HELD/ RECHECK BS IN 2HRS AND TREAT IF NEEDED PER MIGUELITO NICHOLASN RENAL.
[2019-11-02 13:29] LABS: ANISOCYTOSIS OCC; EOSINOPHILS 7 % (0-7); LYMPHOCYTES 9 % (15-50); MONOCYTES 9 % (2-11); NEUTROPHILS 75 % (40-80); PLATELET ESTIMATE NORMAL; SPHEROCYTES OCC
--- NOTE | 2019-11-02 13:51 | NUR ---
NO CHANGE IN ASSESSMENT. PARTICIPATING IN THERAPY.
--- NOTE | 2019-11-02 14:32 | NUR ---
JAIMEE'D AT THIS TIME. ASSISTED TO CAR PER STAFF IN .
--- NOTE | 2019-11-02 16:31 | NUR ---
NO CHANGE IN ASSESSMENT. SITTING IN WC WITH ALARM ON. CL IN REACH.
--- NOTE | 2019-11-02 20:30 | NUR ---
PTS BLOOD SUGAR IS 219. 4 UNITS GIVEN PER SLIDING SCALE ORDER. HE STATES HE ATE AT LEAST HALF OF HIS SPAGETTI FOR DINNER. OFFERED HIM A SANDWICH TO PREVENT BLOOD SUGAR FROM DROPPING IT HAS PREVIOUSLY. HE DENIES PAIN OR NEEDS. BED IS LOW AND CALL LIGHT IS WITHIN REACH. IV TO RIGHT WRIST FLUSHED WELL AND IS SALINE LOCKED.
[2019-11-02 21:18] VITALS: BP 154/72
[2019-11-03 03:22] VITALS: BP 150/72
[2019-11-03 04:19] VITALS: BP 155/73
--- NOTE | 2019-11-03 08:00 | NUR ---
SHIFT ASSMT COMPLETED.
[2019-11-03 11:55] VITALS: BP 134/64
--- NOTE | 2019-11-03 15:10 | NUR ---
TO HD/WC
[2019-11-03 18:30] VITALS: BP 122/48
--- NOTE | 2019-11-03 18:47 | NUR ---
BACK FROM HD
--- NOTE | 2019-11-03 19:25 | NUR ---
PT SITTING UP IN WHEELCHAIR. CL IN REACH. DENIES NEEDS AT THIS TIME. CHAIR ALARM ON. CONFUSED AT TIMES. RESP EVEN AND UNLABORED. BOWEL ACTIVE X4. RIGHT CHEST HEMOSPLIT DRESSING INTACT. WILL CONTINUE TO MONITOR.
--- NOTE | 2019-11-03 21:15 | NUR ---
BS WAS 242. PT REFUSED INSULIN. WCTM
[2019-11-04 00:08] VITALS: BP 128/53
--- NOTE | 2019-11-04 00:16 | NUR ---
I have reviewed this patient and I concur with the Shift Assessment completed by the Licensed Practical Nurse today this shift.
[2019-11-04 05:59] VITALS: BP 138/49
--- NOTE | 2019-11-04 07:30 | NUR ---
AWAKE AND ALERT RESTING IN BED, DENIES ANY NEEDS AT THIS TIME, ASSESSMENT COMPLETE, C/L AND FLUIDS IN REACH.
--- NOTE | 2019-11-04 11:48 | NUR ---
ORDERS FOR LAB GLUCOSE PLACED. DR. SILVA NOTIFIED. NO NEW ORDERS.
[2019-11-04 12:28] VITALS: BP 141/60
--- NOTE | 2019-11-04 12:29 | NUR ---
AWAKE AND ALERT RESTING IN BED, DENIES ANY NEEDS AT THIS TIME, C/L AND FLUIDS IN REACH.
--- NOTE | 2019-11-04 16:00 | NUR ---
UP IN W/C WATCHING TV, DENIES ANY NEEDS AT THIS TIME, C/L AND FLUIDS IN REACH.
[2019-11-04 18:10] VITALS: BP 129/59
--- NOTE | 2019-11-04 19:34 | NUR ---
PT LYING IN BED RESTING QUIETLY WITH EYES CLOSED. EAISLY AWAKEN WITH VOICE STIMULATION. NO SIGNS OF DISTRESS NOTED. PT HAS NO COMPLAINTS AT THIS TIME. BED ALARM ON AND ACTIVE. RESPIRATIONS EVEN AND UNLABORED. CALL LIGHT AND OTHER PERSONAL ITEMS WITH IN REACH. WILL CONTINUE TO MONITOR.
[2019-11-04 20:01] VITALS: BP 129/59
--- NOTE | 2019-11-04 22:00 | NUR ---
PT REFUSES INSULIN FOR BLOOD SUGAR 260. PT EDUCATED ON THE IMPORTANCE OF KEEPING HIS BLOOD SUGAR UNDER CONTROL. PT STATES THAT HE IS AWARE AND WANTS TO SKIP TONIGHT AND WILL SEE WHAT B/S IS IN THE AM. WILL CONTINUE TO MONITOR CALL LIGHT AND OTHER PERSONAL ITEMS WITH IN REACH
--- NOTE | 2019-11-05 00:11 | NUR ---
I have reviewed this patient and I concur with the Shift Assessment completed by the Licensed Practical Nurse today this shift.
[2019-11-05 00:18] VITALS: BP 145/64
--- NOTE | 2019-11-05 03:12 | NUR ---
PT RESTING IN BED WITH EYES CLOSED. EASILY AWAKEN WITH VOICE STIMULATION. NO SIGNS OF DISTRESS NOTED. PT SITS UP ON SIDE OF BED THROUGH OUT THE NIGHT. PT USES URIANL. BED ALARM ON AND ACTIVE. CALL LIGHT AND OTHER PERSONAL ITEMS WITH IN REACH. WILL CONTINUE TO MONITOR
[2019-11-05 06:01] VITALS: BP 151/69
--- NOTE | 2019-11-05 06:02 | NUR ---
PT REFUSES A.M. LABS. PT REQUEST THAT BLOOD BE DRAWN WHEN HE GOES FOR DIALYSIS TODAY.
--- NOTE | 2019-11-05 08:30 | NUR ---
PATIENT SITTING UP ON SIDE OF BED, AWAKE AND ALERT, DENEIS ANY NEEDS AT THIS TIME, ASSESSMENT COMPLETE, C/L AND FLUIDS IN REACH.
--- NOTE | 2019-11-05 08:51 | NUR ---
CALLED [facility] OFFICE REGARDING PATIENTS LABS, PT. REFUSED LABS TO BE DONE LAST NIGHT AND AGAIN THIS MORNING. LEFT MESSAGE WITH OFFICE.
[2019-11-05 11:37] VITALS: BP 148/67
--- NOTE | 2019-11-05 12:08 | NUR ---
RESTING IN BED, REFUSED LABS AGAIN THIS AFTERNOON CALLED DR. OLEARY. STATED THEY WOULD JUST DO BLOOD DRAWS IN DIALYSIS TODAY AND FRIDAY. PATIENT REFUSED LUNCH, DENIES ANY NEEDS AT THIS TIME, C/L AND FLUIDS IN REACH.
--- NOTE | 2019-11-05 15:22 | NUR ---
CARE TEAM MEETING ON THE 11/03/19: PATIENTS SPOUSE ATTENDED THE MEETING. HER QUESTIONS AND CONERNS WERE ADDRESSED. PATIENT IS PROGRESSING IN THERAPY. TENATIVE DISCHARGE DATE IS 11/09/19. WILL CONTINUE TO FOLLOW WITH PATIENT.
--- NOTE | 2019-11-05 15:35 | NUR ---
Nutrition Follow-up: Diet: Renal PO intake: ~65% average x last 8 meals; attempted to speak with patient but he was tearful and stated that he did not want to eat his lunch today. Stated "what does it matter." Asked if there was anything I could do for him and he said "no." Last BM: 11/04/19. WT: 155# (11/05/19); Admit WT: 154# (10/28/19) Meds noted: SSI. Labs noted: POC Glu 254(H) Coninue renal diet. Will add Nepro with meals. RD following.
--- NOTE | 2019-11-05 16:14 | NUR ---
PATIENT IN DIALYSIS
[2019-11-05 17:15] LABS: BASOPHILS 0.6 % (0-2); EOSINOPHILS 7.9 % (0-7); HEMATOCRIT 25.7 % (42.0-54.0); HEMOGLOBIN 7.9 g/dL (13.5-17.5); IMMATURE GRANULOCYTES 0.1 % (0-5); MCH 28.2 pg (26.0-34.0); MCHC 30.7 g/dL (31.0-37.0); MCV 91.8 fL (80.0-100.0); MEAN PLATELET VOLUME 11.1 fL (7.4-10.4); NEUTROPHILS 67.4 % (40-80); PLATELET COUNT 282 10x3/uL (130-400); RDW 18.1 % (11.5-14.5); WBC 7.7 10x3/uL (4.8-10.8)
[2019-11-05 17:33] LABS: ANION GAP 14.9 mmol/L (8-16); CALCIUM 8.2 mg/dL (8.5-10.1); CARBON DIOXIDE 24.8 mmol/L (21.0-32.0); CREATININE - SERUM 8.2 mg/dL (0.6-1.3); POTASSIUM - SERUM 3.7 mmol/L (3.5-5.1)
--- NOTE | 2019-11-05 17:33 | NUR ---
UNABLE TO GIVE 1630 AND 1700 SCHEDULED MEDICATIONS, PATIENT IN DIALYSIS.
[2019-11-05 18:30] VITALS: BP 134/46
--- NOTE | 2019-11-05 19:28 | NUR ---
PATIENT RECEIVED SITTING UP IN WHEELCHAIR. DIALYSIS NURSE ASSIST INTO BED. ASSESSMENT & VITAL SIGNS DONE. NO C/O PAIN OR DISTRESS. ALARM ON. CALL LIGHT WITHIN REACH. WILL CONTINUE TO MONITOR.
[2019-11-05 20:00] VITALS: BP 139/46
[2019-11-05 23:48] VITALS: BP 155/75
--- NOTE | 2019-11-06 01:40 | NUR ---
I have reviewed this patient and I concur with the Shift Assessment completed by the Licensed Practical Nurse today this shift.
--- NOTE | 2019-11-06 03:38 | NUR ---
PATIENT EYES CLOSED. RESPIRATIONS 18 & EVEN. BED LOW. ALARM ON. CALL LIGHT WITHIN REACH. WILL CONTINUE TO MONITOR.
[2019-11-06 06:09] VITALS: BP 154/65
[2019-11-06 08:00] VITALS: BP 157/80
--- NOTE | 2019-11-06 08:00 | NUR ---
SHIFT ASSMT COMPLETED
[2019-11-06 12:30] VITALS: BP 161/79
--- NOTE | 2019-11-06 14:32 | NUR ---
REFUSED THERAPY.STATES TIRED.
[2019-11-06 18:03] VITALS: BP 148/63
--- NOTE | 2019-11-06 19:48 | NUR ---
PATIENT RECEIVED SITTING IN LOW BED. ASSESSMENT & VITAL SIGNS DONE. ALARM ON. CALL LIGHT & URINAL WITHIN REACH. WILL CONTINUE TO MONITOR.
[2019-11-06 23:46] VITALS: BP 158/73
--- NOTE | 2019-11-06 23:50 | NUR ---
I have reviewed this patient and I concur with the Shift Assessment completed by the Licensed Practical Nurse today this shift.
--- NOTE | 2019-11-07 00:44 | NUR ---
PATIENT AWAKE. CALL LIGHT ON. PATIENT WANTING LIOR CRACKERS & COFFEE. BED LOW. ALARM ON. CALL LIGHT WITHIN REACH. WILL CONTINUE TO MONITOR.
--- NOTE | 2019-11-07 00:57 | NUR ---
PATIENT TOILETED. VOID ONLY. URINAL EMPTIED OF 100 ML OF YELLOW COLOR URINE. BED LOW. ALARM ON. CALL LIGHT WITHIN REACH. WILL CONTINUE TO MONITOR.
[2019-11-07 06:12] VITALS: BP 155/72
--- NOTE | 2019-11-07 08:00 | NUR ---
SHIFT ASSMT COMPLETED.BREAKFAST GIVEN.CL IN REACH.
[2019-11-07 08:15] VITALS: BP 106/55
--- NOTE | 2019-11-07 10:15 | NUR ---
WANTING TO SPEAK WITH ENGLISH LANGUAGE LEARNER TEACHER OVER NURSES NOT TURNING BED ALARM OFF.FALL RISK >2.ALARM REMAINS ON.PT NOT A CANIDATE FOR ALARM WAIVER.
--- NOTE | 2019-11-07 12:00 | NUR ---
MORE PLEASANT AND COOPERATIVE.SITTING ON SIDE OF BED EATING LUNCH.
[2019-11-07 12:37] VITALS: BP 113/71
[2019-11-07 18:00] VITALS: BP 164/73
--- NOTE | 2019-11-07 19:34 | NUR ---
PATIENT RECEIVED SITTING UP IN BED. ASSESSMENT & VITAL SIGNS DONE. NO C/O PAIN OR DISTRESS. BED LOW. ALARM ON. CALL LIGHT WITHIN REACH. WILL CONTINUE TO MONITOR.
[2019-11-07 20:31] VITALS: BP 140/53
[2019-11-07 23:55] VITALS: BP 161/72
--- NOTE | 2019-11-07 23:57 | NUR ---
PATIENT OUT OF WHEELCHAIR UP & INTO BED. 0000 VITAL SIGNS TAKEN. PATIENT COVERED UP WITH BLANKETS. PATIENT STILL DOES NOT BATH. "TOO COLD." BATHROOM HAS NO HEATER. WILL CONTINUE TO COAX PATIENT INTO TAKING A BATH. BED LOW. ALARM ON. CALL LIGHT WITHIN REACH. WILL CONTINUE TO MONITOR.
--- NOTE | 2019-11-08 00:18 | NUR ---
I have reviewed this patient and I concur with the Shift Assessment completed by the Licensed Practical Nurse today this shift.
--- NOTE | 2019-11-08 02:49 | NUR ---
PATIENT AWAKE USED CALL LIGHT FOR ASSIST. PATIENT WANTED LIOR CRACKERS & MILK. ALARM ON. CALL LIGHT WITHIN REACH. WILL CONTINUE TO MONITOR.
[2019-11-08 06:02] VITALS: BP 176/83
--- NOTE | 2019-11-08 07:15 | NUR ---
AWAKE AND ALERT SITTING ON THE SIDE OF BED, V/S AND ASSESSMENT COMPLETE, DENIES ANY NEEDS AT THIS TIME, C/L AND FLUIDS IN REACH.
[2019-11-08 07:38] VITALS: BP 175/93
--- NOTE | 2019-11-08 11:56 | NUR ---
SITTING UP ON SIDE OF BED, DENIES ANY NEEDS AT THIS TIME, C/L AND FLUIDS IN REACH.
[2019-11-08 12:05] VITALS: BP 166/83
[2019-11-08 13:04] LABS: HEMATOCRIT 25.5 % (42.0-54.0); HEMOGLOBIN 7.9 g/dL (13.5-17.5); LYMPHOCYTES 13.1 % (15-50); MCH 28.4 pg (26.0-34.0); MCV 91.7 fL (80.0-100.0); MEAN PLATELET VOLUME 10.2 fL (7.4-10.4); NEUTROPHILS 70.6 % (40-80); PLATELET COUNT 268 10x3/uL (130-400); RBC 2.78 10x6/uL (4.20-6.10); RDW 19.2 % (11.5-14.5); WBC 5.6 10x3/uL (4.8-10.8)
[2019-11-08 13:21] LABS: ANION GAP 18.5 mmol/L (8-16); CALCIUM 8.2 mg/dL (8.5-10.1); CARBON DIOXIDE 22.3 mmol/L (21.0-32.0); CREATININE - SERUM 7.2 mg/dL (0.6-1.3); POTASSIUM - SERUM 3.8 mmol/L (3.5-5.1)
--- NOTE | 2019-11-08 16:00 | NUR ---
RESTING IN BED WATCHING TV, DENIES ANY NEEDS AT THIS TIME, C/L AND FLUIDS IN REACH.
[2019-11-08 17:59] VITALS: BP 145/58
--- NOTE | 2019-11-08 19:30 | NUR ---
PT SETTING ON SIDE OF BED, AAO X 2. RESP EVEN AND UNLABORED, NO DISTRESS NOTED, CL IN REACH, SR UP X 2. NO CONCERNS OR WANTS NOTED AT THIS TIME.
[2019-11-08 21:45] VITALS: BP 147/68
--- NOTE | 2019-11-08 23:18 | NUR ---
I have reviewed this patient and I concur with the Shift Assessment completed by the Licensed Practical Nurse today this shift.
--- NOTE | 2019-11-09 07:36 | NUR ---
ALERT AND ORIENTED. NO C/O PAIN. RESP EVEN AND UNLABORED. CL IN REACH.
[2019-11-09 09:39] VITALS: BP 163/71
--- NOTE | 2019-11-09 10:53 | NUR ---
Nutrition Follow-up: Diet: Renal + nepro TID PO intake: 75-100% x last 9 meals; reports good appetite Last BM: 11/07/19 x 2. WT: 155# (11/09/19); Admit Wt: 154# (10/28/19) Meds noted: SSI. Labs noted: BUN 61(H), Cr 7.2(H), GFR 8(L), POC Glu 152(H) Recommend continue current diet and oral nutrition supplement. RD following.
--- NOTE | 2019-11-09 11:59 | NUR ---
PATIENT DISCHARGING HOME TODAY WITH SPOUSE. PATIENT HAS DECLINED HOME HEALTH AT THIS TIME. NO NEW DME NEEDED AT THIS TIME. PATIENT WILL CONTINUE WITH SAME HD DAYS -- @ 06:[address] [place] BUSH 11/18/19 @ 1:30.BALJINDER SIGNED, IMM SERVED AND EXPLAINED, ONE GIVEN TO PATIENT AND ONE FILED IN CHART. DISCHARGE INSTRUCTIONS FAXED TO PCP AND REVIEWED WITH PATIENT AND SPOUSE PER PRIMARY NURSE.
--- NOTE | 2019-11-09 12:38 | NUR ---
MEDS CALLED TO PIA IN [place]. DC INSTRUCTIONS GIVEN. VERBALIZES UNDERSTANDING. ASSISTED TO CAR IN WC PER STAFF FOR DC HOME.
== END 2019-11-09 13:24 | disposition home or self-care (01) | DRG 70 ==
LOC: D.REHAB 19:00
PROVIDERS: Internal Medicine Nephrology; ADMIT Emergency Medicine; ATTEND Emergency Medicine
DX: G93.41 Metabolic encephalopathy (principal); N18.6 End stage renal disease; J18.9 Pneumonia, unspecified organism; J96.01 Acute respiratory failure with hypoxia; I50.23 Acute on chronic systolic (congestive) heart failure; J81.1 Chronic pulmonary edema; Z99.2 Dependence on renal dialysis; R13.12 Dysphagia, oropharyngeal phase; R53.1 Weakness; D50.9 Iron deficiency anemia, unspecified; N40.0 Benign prostatic hyperplasia without lower urinary tract symptoms; R79.89 Other specified abnormal findings of blood chemistry; I25.10 Atherosclerotic heart disease of native coronary artery without angina pectoris; E11.22 Type 2 diabetes mellitus with diabetic chronic kidney disease; K21.9 Gastro-esophageal reflux disease without esophagitis; I25.5 Ischemic cardiomyopathy; R53.81 Other malaise; R16.0 Hepatomegaly, not elsewhere classified; J44.9 Chronic obstructive pulmonary disease, unspecified; I11.0 Hypertensive heart disease with heart failure

== ENCOUNTER 2019-11-12 10:23 | Inpatient (IN) | payer MEDICARE, OTHER ==
[2019-11-12] VITALS (8 sets, daily range): BP systolic 125–155; BP diastolic 83–95; BMI 22.4
[~2019-11-12] VITALS: Ht 177.8 cm; Wt 67.4 kg
--- NOTE | ~2019-11-12 | HEMODYNAMI ---
PATIENT:GILDA CONTRERAS MEDICAL RECORD: [id number] : 38 LOCATION:[facility] D.2126 ADMISSION DATE: 11/13/19 Generatedon:11/15/201910:53 Patient name: GILDA CONTRERAS Patient #: [id number] SSN: [id number] : 1940 Date of study: 11/15/2019 Page: Of Hemodynamic Procedure Report Patient Data Patient Demographics Procedure consent was obtained First Name: GILDA Gender: Male Last Name: BEN : 1940 Middle Initial: EDIE Age: 79 year(s) Patient #: [id number] Race: SSN: [id number] Additional ID: [id number] Contact details Address: [facility] [address] State: [place] City: [place] Zip code: [address] Past Medical History Allergies Allergen Reaction Date Comments Reported Other allergy 10/12/2019 MORPHINE Morphine 10/14/2019 Morphine 11/15/2019 Admission Admission Data Admission Date: 11/13/2019 Admission Time: 18:48 Room #: D.2126 Lab Results Lab Result Date: 11/15/2019 Lab Result Time: 0:00 Biochemistry Name Units Result Min Max BUN mg/dl 44 --(----)-* 7 18 Creatinine mg/dl 5.3 --(----)-* 0.6 1.3 eGFR ml/min 11 *-(----)-- 90 120 NONAFRICAN CBC Name Units Result Min Max Hematocrit % 28.2 *-(----)-- 42 54 Hemoglobin g/dl 8.7 *-(----)-- 13.5 17.5 Procedure Procedure Types Cath Procedure Diagnostic Procedure Cardioversion External PAULO Procedure Description Procedure Date Procedure Date: 11/15/2019 Procedure Start Time: 10:38 Procedure End Time: 10:50 Procedure Staff Name Function Christopher Rodriguez MD Performing Physician Hailey English District Associate Judge Brooke Walls RN Nurse Norma Carranza RT Physical Geographer Jesika Gandhi RT Monitor Payam Dos Santos MD Additional personnel Indication Atrial flutter Procedure Data Procedure Complications No complications Procedure Medications Medication Administration Route Dosage 0.9% NaCl I.V. 100 ml/hr Oxygen etCO2 Nasal cannula 2 l/min Hurricaine [place] P.O. 2 Sprays Refer to Anesthesia Notes for Sedation Medications Hemodynamics Rest Pre Cath Intra NCS Post Cath Vital Signs Time Heart Resp SPO2 etCO2 NIBP (mmHg) Rhythm Pain Sedation Rate (ipm) (%) (mmHg) Status Level (bpm) 10:21:06 87 14 96 15.6 136/86(111) A-Flutter 0 (11) 10(A) , No pain 10:25:20 88 19 95 23.1 131/88(109) A-Flutter 0 (11) 10(A) , No pain 10:29:32 87 22 96 21.6 127/81(98) A-Flutter 0 (11) 10(A) , No pain 10:33:46 88 21 97 17.1 127/81(98) A-Flutter 0 (11) 5(A) , No pain 10:37:56 88 20 93 15.6 134/88(113) A-Flutter 0 (11) 5(A) , No pain 10:42:14 79 14 95 0 95/47(89) NSR 0 (11) 5(A) , No pain 10:47:07 73 16 92 8.2 118/66(101) NSR 0 (11) 5(A) , No pain 10:49:36 76 13 95 18.6 115/59(94) NSR 0 (11) 5(A) , No pain Medications Time Medication Route Dose Verified Delivered Reason Notes Effecti veness by by 10:20:11 0.9% NaCl I.V. 100 Norred Brooke used for ml/hr Michael Walls scheduling assistant 10:20:19 Oxygen etCO2 2 Norred Brooke used for Nasal l/min Michael Walls procedure cannula RN 10:20:29 Hurricaine P.O. 2 Norred Brooke for local [place] Sprays Michael Walls anesthetic RN 10:20:36 Refer to Norred Brooke Anesthesia Michael Walls Notes for RN Sedation Medications Procedure Log Time Note 10:06:08 Informed consent obtained and on chart 10:06:40 Procedure Status PAULO. 10:06:44 Norma Carranza RT(R) sent for patient. Start room use. 10:06:45 Time tracking: Regular hours (M-F 7:00 - 5:00) 10:06:49 Plan of Care:Hemodynamics will remain stable., Cardiac rhythm will remain stable., Comfort level will be maintained., Respiratory function will remain adequate., Patient/ family verbilizes understanding of procedure., Procedure tolerated without complication., Recovers from procedure without complications.. 10:06:52 Full Disclosure recording started 10:06:57 H&P Date Dictated: 11/15/2019 Within 30 days and on chart.. 10:07:01 Patient NPO since Midnight. 10:07:04 Is the patient allergic to Iodine/contrast media? No. 10:07:06 Was the patient premedicated? N/A 10:10:24 Patient allergic to Morphine 10:10:54 Patient received from Med II to CCL 1 Alert and oriented. Tansferred to table in Supine position. 10:10:56 Warm blankets applied, and jolene hugger turned on for patient comfort. 10:10:57 Correct patient and procedure confirmed by team. 10:10:58 ECG and BP/O2 sat monitors applied to patient. 10:11:03 Pre-procedure instructions explained to patient. 10:11:04 Pre-op teaching completed and patient verbalized understanding. 10:11:11 Family in patients room. 10:11:18 Is patient on blood thinner?Yes 10:13:05 ACC The patient was administered the following blood thiners within the last 24 hours: Eliquis 10:14:02 Patient diabetic? Yes. 10:14:11 If diabetic: On Metformin? No 10:20:02 Vital chart was started 10:20:11 0.9% NaCl 100 ml/hr I.V. was administered by Brooke Walls RN; used for procedure; Verbal order read back and verified. 10:20:19 Oxygen 2 l/min etCO2 Nasal cannula was administered by Brooke Walls RN; used for procedure; Verbal order read back and verified. 10:20:29 Hurricaine [place] 2 Sprays P.O. was administered by Brooke Walls RN; for local anesthetic; Verbal order read back and verified. 10:20:36 Refer to Anesthesia Notes for Sedation Medications was administered by Brooke Walls RN; ; Verbal order read back and verified. 10:24:44 ----Pre-sedation anethsthesia assessment.---- 10:24:48 Previous problem with sedation/anesthesia? No ? 10:24:51 Snore? Yes 10:24:54 Sleep apnea? No 10:24:57 Deviated septum? Unknown 10:25:01 Opens mouth fully? Yes 10:25:03 Sticks out tongue? Yes 10:25:31 Airway obstruction? No ? 10:25:35 Dentures? No ? 10:25:56 IV patent on arrival in right forearm with 0.9% NaCl at [facility]. 10:27:06 Lab Result : BUN 44 mg/dl 10::06 Lab Result : Creatinine 5.3 mg/dl 10:27:06 Lab Result : eGFR NONAFRICAN 11 ml/min 10:27:06 Lab Result : Hemoglobin 8.7 g/dl 10:27:06 Lab Result : Hematocrit 28.2 % 10:27:14 Lab results completed and on chart. 10:27:30 [facility] Bus Matron present for PAULO. 10:28:40 Indication : Atrial flutter 10:29:24 Alarms reviewed by RReva N. 10:29:49 Payam Dos Santos MD present and monitoring patient for TIVA. 10:38:00 Quick Combo opened to sterile field. 10:38:00 Physician arrived 10:38:01 --------ALL STOP TIME OUT------ 10:38:03 Final Timeout: patient, procedure, and site verified with staff and physician. All members of the team are in agreement. 10:38:10 Fire Safety Assessment: A--An alcohol-based skin anteseptic being used preoperatively., B--The operative or invasive procedure is being performed above the xiphoid process or in the oropharynx., C--Open oxygen or nitrous oxide is being used., E--There are other possible contributors. 10:38:22 Sedation plan: TIVA Medication:Propofol 10:38:25 Physical assessment completed. ASA score P 4 - A patient with severe systemic disease that is a constant threat to life as per Payam Dos Santos MD. 10:38:29 Procedure started. 10:39:04 Hailey Amador Bus Matron present for PAULO. 10:39:05 PAULO started. 10:41:11 ------Cardioversion------ 10:41:12 Quick combo pads placed on patients chest and back. 10:41:39 Defibrillator synced and charged to 150 Joules. 10:41:42 Shock delivered. 10:42:15 Patient cardioverted to sinus rhythm . 10:42:19 PAULO completed. 10:43:09 Procedure ended.(Physican Out) 10:45:50 Post-procedure physical assessment completed. ASA score P 4 - A patient with severe systemic disease that is a constant threat to life as per Payam Dos Santos MD. 10:47:36 Post procedure rhythm: sinus rhythm 10:47:39 Post procedure instruction explained to patient.Patient verbalizes understanding. 10:47:41 Patient needs reinforcement of post procedure teaching. 10:47:57 Procedure and supply charges have been captured, reviewed, submitted and are correct. 10:48:22 Procedure Complication : No complications 10:48:26 Vital chart was stopped 10:49:41 Operative report dictated upon procedure completion. 10:49:42 See physician's report for complete and final results. 10:49:47 Report given to Med II. 10:50:02 Patient transfered to Med II with Bed. 10:50:06 Procedure ended. 10:50:06 Full Disclosure recording stopped 10:50:09 End room use (Document Last) Device Usage Item Manufacture Quantity Catalog Hospital Part Current Minimal Lot# / Name Number Charge Number Stock Stock Seri al# Code Quick [employer] 1 [id number] Combo Signature Audit [place] Stage Time Signature Unsigned Intra-Procedure 11/15/2019 Jesika 10:51:41 AM Hiram RT(R) (CV) Intra-Procedure 11/15/2019 Brooke Walls 10:52:10 AM RN Intra-Procedure 11/15/2019 Christopher Rodriguez MD 10:53:13 AM [facility] [address] [place] [address]
[2019-11-12 11:08] LABS: BASOPHILS 0.8 % (0-2); EOSINOPHILS 0 % (0-7); HEMATOCRIT 28.2 % (42.0-54.0); HEMOGLOBIN 8.7 g/dL (13.5-17.5); IMMATURE GRANULOCYTES 0.1 % (0-5); LYMPHOCYTES 13.6 % (15-50); MCH 27.8 pg (26.0-34.0); MCHC 30.9 g/dL (31.0-37.0); MCV 90.1 fL (80.0-100.0); MEAN PLATELET VOLUME 9.8 fL (7.4-10.4); MONOCYTES 6.2 % (2-11); NEUTROPHILS 79.3 % (40-80); RBC 3.13 10x6/uL (4.20-6.10); RDW 18.1 % (11.5-14.5); WBC 8.7 10x3/uL (4.8-10.8)
[2019-11-12 11:19] LABS: APTT 33.6 SECONDS (22.8-39.4); INR 1.11 (0.85-1.17); PROTIME 14.2 SECONDS (11.6-15.0)
[2019-11-12 11:21] LABS: CALC OSMOLALITY 287 mosm/kg (275-300); CALCIUM 8.8 mg/dL (8.5-10.1); CARBON DIOXIDE 33.1 mmol/L (21.0-32.0); CHLORIDE - SERUM 99 mmol/L (98-107); CREATININE - SERUM 5.3 mg/dL (0.6-1.3); POTASSIUM - SERUM 4.1 mmol/L (3.5-5.1); SODIUM 138 mmol/L (136-145); UREA NITROGEN 44 mg/dL (7-18); eGFR NON AFRICAN AMERICAN 11 mL/min (90-120)
[2019-11-12 11:22] LABS: GLUCOSE 110 mg/dL (74-106)
[2019-11-12 11:38] LABS: ALBUMIN 3.1 g/dL (3.4-5.0); ALKALINE PHOSPHATASE 126 U/L (30-120); ALT (SGPT) 42 U/L (10-68); BILIRUBIN - TOTAL 0.43 mg/dL (0.2-1.3); CKMB 2.7 U/L (0.0-3.6); CREATINE KINASE 36 UL (21-232); MAGNESIUM - SERUM 1.7 mg/dL (1.8-2.4); PROTEIN - SERUM 7.2 g/dL (6.4-8.2)
[2019-11-12 11:39] LABS: PLATELET COUNT 403 10x3/uL (130-400)
[2019-11-12 12:05] LABS: PRO BNP 46367 pg/mL (0-450)
--- NOTE | 2019-11-12 20:00 | NUR ---
ADMIT TO ROOM 2126 FROM ER VIA WHEELCHAIR. ALERT/ORIENTED. [place]. ADMISSION ASSESSMENT AND HISTORY COMPLETED. HOME MEDS REVIEWED/UPDATED. TELEMETRY INITIATED. ST 130'S CONTINUE, SAME IN ER.
--- NOTE | 2019-11-12 22:00 | NUR ---
PT HAS FISTULAS X 2 TO LEFT LOWER ARM AND LEFT MID ARM. HE STATES BOTH ARE NOT USABLE AND HE IS DIALYZED VIA RIGHT CHESTWALL HEMOSPLIT (POSITION IS WAY TO THE RIGHT OF CHEST, ALMOST TO ARMPIT AREA). RESERVE LEFT ARM SIGNS PLACED ON DOOR AND ABOVE BED.
[2019-11-13 00:49] VITALS: BP 123/70
--- NOTE | 2019-11-13 02:18 | NUR ---
ST/130-140 CONTINUES. PT RESTING WITH EYES CLOSED. NONLABORED RESPIRATIONS. CPOC.
[2019-11-13] MEDS ORDERED: TOUJEO SOL300 UNIT/1 SC (03:12)
[2019-11-13 05:18] VITALS: BP 138/93
[2019-11-13 08:15] VITALS: BP 125/82
--- NOTE | 2019-11-13 08:45 | NUR ---
AM MEDS GIVEN AT THIS TIME. PT TO SIDE OF BED, EATING BREAKFAST, DENIES ANY NEEDS AT THIS TIME. RT HAND IV SL. CALL LIGHT IN REACH, NAD NOTED, WILL CONTINUE PLAN OF CARE.
--- NOTE | 2019-11-13 10:30 | NUR ---
PT REFUSED LAB WORK. NOTIFIED JAYLYN VO APRN.
[2019-11-13 11:23] VITALS: BP 116/65
--- NOTE | 2019-11-13 11:25 | NUR ---
CONSETNS SIGNED BY PT, ALSO DID EKG AND PLACED ON CHART. INSTRUCTED PT TO CHANGE INTO A GOWN. AT BEDSIDE, CALL LIGHT IN REACH, NAD NOTED, WILL CONTINUE TO MONITOR.
--- NOTE | 2019-11-13 11:30 | NUR ---
PER DR. GUPTA, PT TO HAVE PAULO WITH CARDIOVERSION IN THE AM AND PUT PT ON ELIQUIS 5MG BID.
[2019-11-13 12:05] VITALS: Ht 177.8 cm; Wt 67.4 kg
--- NOTE | 2019-11-13 19:45 | NUR ---
REPORT AND INITIAL ROUNDS COMPLETED. PT RESTING IN BED WITH NO DISTRESS. CALL LIGHT IN REACH. CPOC.
[2019-11-13 20:00] VITALS: BP 142/77
--- NOTE | 2019-11-13 22:45 | NUR ---
BEDTIME MEDS GIVEN. TIMOLOL EYE DROPS NOT AVAILABLE FROM PHARMACY. PT ALSO STATES HE NO LONGER TAKES XALATAN EYE DROPS, WILL DISCONTINUE ORDER FOR XALATAN.
[2019-11-14] VITALS: BP 117/47
--- NOTE | 2019-11-14 03:51 | NUR ---
RESTING IN BED WITH EYES CLOSED. FLUTTER/86 PER TELEMETRY. HAS BEEN NPO SINCE MIDNIGHT. CALL LIGHT IN REACH.
--- NOTE | 2019-11-14 07:44 | NUR ---
CALLED PHARMACY AND SPOKE WITH TERESA, INFORMED HER THAT I NEED EYE DROPS FOR PT.
[2019-11-14 08:02] VITALS: BP 140/57
--- NOTE | 2019-11-14 08:57 | NUR ---
PT NPO FOR PROCEDURE. AM MEDS HELD, PT RESTING COMFORTABLY IN BED. RT HAND IV SL. HEART MONITOR SHOWING FLUTTER WITH RATE OF 96. PT DENIES ANY NEEDS AT THIS TIME. CALL LIGHT IN REACH, NAD NOTED, WILL CONTINUE TO MONITOR.
--- NOTE | 2019-11-14 09:48 | NUR ---
CHECKED PT'S BLOOD SUGAR BECAUSE PT STATED THAT HE WAS NOT FEELING WELL THAT HE FELT LIKE HIS BLOOD SUGAR WAS LOW. BLOOD SUGAR READING OF 53, CALLED MEHREEN NEGRETE APRN AND RECEIVED ORDER FOR D5W AT 30CC/HR.
[2019-11-14 11:39] VITALS: BP 132/60
--- NOTE | 2019-11-14 13:01 | NUR ---
PT RESTING COMFORTABLY IN BED,DENIES ANY NEEDS AT THIS TIME. CALL LIGHT IN REACH, NAD NOTED, WILL CONTINUE TO MONITOR.
--- NOTE | 2019-11-14 19:45 | NUR ---
REPORT AND INITIAL ROUNDS COMPLETED. PT WAS JUST SEEN BY DR GUPTA WHO CONFIRMED PT WILL HAVE A PAULO WITH CARDIOVERSION IN AM.
[2019-11-14 20:00] VITALS: BP 141/84
--- NOTE | 2019-11-14 21:57 | NUR ---
BEDTIME MEDS GIVEN. PT TEACHING ON ENTRESTO, NEW MEDICATION, INITIAL DOSE. EYE DROPS TIMOLOL ADMINISTERED. REFUSED XALATAN. SNACK PROVIDED SINCE PATIENT WILL BE NPO AFTER MIDNIGHT.
--- NOTE | 2019-11-14 22:40 | NUR ---
PT REFUSED VITAL SIGNS AT THIS TIME.
[2019-11-15 04:00] VITALS: BP 152/65
--- NOTE | 2019-11-15 08:18 | EC ---
PATIENT:GILDA CONTRERAS DATE OF SERVICE: 11/13/19 SEX: M MEDICAL RECORD: [id number] DATE OF : [birth year] LOCATION:D.M2 D.212 AGE OF PATIENT: 79 ADMISSION DATE: 11/13/19 REFERRING PHYSICIAN: INTERPRETING PHYSICIAN: CESAR WHITE MD ECHOCARDIOGRAM REPORT ECHO CHARGES 5 ECHO LIMITED Date: 11/13/19 1 DOPPLER ECHO COLOR FLOW 2 DOPPLER ECHO PULSE CLINICAL DIAGNOSIS: CP H/O CABG ECHOCARDIOGRAPHIC MEASUREMENTS (adult normal given) AC root (d.<3.7cm) 0 cm LV Septum d (<1.2 cm> 0 cm Valve Excursion 0 cm LV Septum (systole) 0 cm Left Atria (s.<4.0cm> 0 cm LVPW d(<1.2cm) 0 cm RV (d.<2.3cm) 0 cm LVPW (sytole) 0 cm LV diastole(<5.6CM) 0 cm MV E-F(>70mm/sec) 0 cm LV systole 0 cm LVOT Diameter 1.7 cm MV exc.(>10mm) 0 cm Est.ejection fraction (50-75%) % DOPPLER: LVIT 0 cm/sec A 0 cm/sec E 0 cm/sec LA 0 cm/sec RVSP 31.2 mmHg LVOT 100 cm/sec AOP1/2T 0 m/s Asc. Ao 238 cm/sec RVOT 0 cm/sec RA 0 cm/sec PA 0 cm/sec AV Gradient Peak 23.0 mmHg AV Mean 12.0 mmHg AV Area 0.9 cm MV Gradient Peak 0 mmHg MV Mean 0 mmHg MV Area 0 cm COMMENTS: LIMITED STUDY (2-D,COLOR,DOPPLER) COMPLETE ECHO DONE ON 10/12/19 User Interface Artist: Heidi INIGUEZ Digester Capper: Pily White TAPE# PACS Pericardial Effusion Y DATE OF SERVICE: PROCEDURE: Transthoracic echocardiogram. FINDINGS: Left ventricle shows left ventricular hypertrophy. There is left ventricular dilatation. Ejection fraction is approximately 30%. No obvious wall motion abnormalities or changes in wall motion. The patient does have moderate to severe mitral regurgitation, which is eccentric. The patient does have mildly dilated left atrium. The patient has a sclerotic aortic valve, but no evidence of aortic stenosis. The patient has moderate tricuspid ECHOCARDIOGRAM REPORT [id number] GILDA CONTRERAS regurgitation. The right ventricular systolic pressure is elevated at 40-50 mmHg. The patient does have a small pericardial effusion without tamponade. TRANSINT:[id number] Voice Confirmation ID: [id number] DOCUMENT ID: [id number] CESAR WHITE MD at 0818 CC: [id number] DICTATION DATE: 11/14/19 1045 PROFESSIONAL NURSING TUTOR: 11/14/19 1410 ADM IN [place] [address] [place] [address]
[2019-11-15 09:13] VITALS: BP 131/60
--- NOTE | 2019-11-15 10:15 | NUR ---
PT TO LUBE WORKER.
[2019-11-15 11:06] VITALS: BP 121/64
--- NOTE | 2019-11-15 11:06 | NUR ---
RECEIVED PT BACK TO ROOM 2125. PT A/O X4, MONITOR SHOWING ST WITH RATE OF 73. VITAL SIGNS STABLE. PT REFUSED TO BE HOOKED UP TO FREQUENT VITAL SIGNS. PT DENIES ANY NEEDS AT THIS TIME. CALL LIGHT IN REACH, AT BEDSIDE, NAD NOTED.
[2019-11-15 13:12] VITALS: BP 150/76
--- NOTE | 2019-11-15 14:35 | NUR ---
PT RESTING COMFORTABLY IN BED, WAITING TO GET DIALYSIS, INFORMED PT THAT IT WILL BE ON SECOND SHIFT, SO NOTIFIED PT THAT IT WILL BE PROBABLY AFTER 1500. PT DENIES ANY NEEDS AT THIS TIME. CALL LIGHT IN REACH, NAD NOTED, WILL CONTINUE TO MONITOR.
--- NOTE | 2019-11-15 15:00 | NUR ---
PT TO DIALYSIS VIA BED. NOTIFIED BY GLOVE WRAPPER THAT PT REFUSES TO WEAR HEART MONITOR, INFORMED GLOVE WRAPPER THAT PT HAS TO WEAR HEART MONITOR BECAUSE HE HAD CARDIOVERSION TODAY.
--- NOTE | 2019-11-15 18:55 | NUR ---
RECEIVED PT BACK TO ROOM 2126, PT STILL REFUSING TO WEAR HEART MONITOR. WAS GOING TO GO AND TALK TO PT BUT DOWELING MACHINE OPERATOR WENT AND TALKED TO PT AND PT STILL REFUSED TO WEAR MONITOR. PER DOWELING MACHINE OPERATOR LEAVE HEART MONITOR OFF.
--- NOTE | 2019-11-15 19:00 | NUR ---
PT BACK TO ROOM FROM DIALYSIS, UPON WALKING ROUNDS WITH DAY SHIFT NURSE AND HOUSE SUPPERVISOR IN ROOM, PT STATED FOR THE "5 TH TIME" THAT HE DOES NOT WANT TO WEAR HIS TELEMETRY BOX. BOX RETURNED TO MT AT THIS TIME.
[2019-11-15 20:00] VITALS: BP 145/63
--- NOTE | 2019-11-16 03:05 | NUR ---
I have reviewed this patient and I concur with the Shift Assessment completed by the Licensed Practical Nurse today this shift.
[2019-11-16 04:00] VITALS: BP 139/64
--- NOTE | 2019-11-16 07:20 | NUR ---
RECIEVE REPORT. RESTING IN BED WITH EYES CLOSED. NO SIGNS OF DISTRESS. CONTINUE PLAN OF CARE AND SAFETY PRECAUTIONS.
[2019-11-16 08:39] VITALS: BP 135/64
--- NOTE | 2019-11-16 12:30 | NUR ---
ALERT AND ORIENTED X4. SITTING UP ON SIDE OF BED. SPOUSE AT BEDSIDE. DC RT HAND IV TIP INTACT. DISCHARGE INSTRUCTIONS SIGNED ON CHART. DISCHARGE PAPERS SIGNED ON CHART. ESCORT TO RIDE VIA WHEELCHAIR. REMAINS FREE FROM INJURY.
--- NOTE | 2019-11-16 12:37 | MORECARE ---
CASE MANAGEMENT DISCHARGE SUMMARY PATIENT: GILDA CONTRERAS UNIT: [id number] ADM DATE: 11/13/19 AGE: 79 : 39 SEX: M ROOM/BED: D.2126 AUTHOR: DARIUSZ POSEY PHYSICIAN: REFERRING PHYSICIAN: ADLEINE MARTINEZ DO DATE OF SERVICE: 11/16/19 Discharge Plan Patient Name: GILDA CONTRERAS [facility] [facility] 1940 Planned Disposition: Home Anticipated Discharge Date: Discharge Date: 11/16/2019 Expected LOS: Initial Reviewer: [email or web address] Initial Review Date: 11/12/2019 Generated: 11/16/19 1:37 pm Coverage Notice Reviewer: [email or web address] Fanny Gallardo Notice Issued Date-Time: 11/13/2019 13:10 Notice Type: Medicare Outpatient Observation Notice Notice Delivered To: Patient Relationship to Patient: Self Secretary Of State Name: Delivery Method: HAND - Hand Delivered Jael Days: Prior Verbal Notification: Recipient Understood Notice: Recipient Signature: Yes Med Rec Note Co-signed by Attending: Coverage Notice Comment: Patient Name: GILDA CONTRERAS Page [phone] at 1237 All edits/amendments must be made on the electronic document DICTATION DATE: 11/16/19 1237 INDUSTRIAL SAFETY AND HEALTH SPECIALIST: WILLIAM 11/16/19 1237 RPT#: [id number] DC DATE:11/16/19 STATUS: DIS IN [facility] [address] [place] [address] END OF REPORT
--- NOTE | 2019-11-16 12:45 | MORECARE ---
CASE MANAGEMENT DISCHARGE SUMMARY PATIENT: GILDA CONTRERAS UNIT: [id number] ADM DATE: 11/13/19 AGE: 79 : 39 SEX: M ROOM/BED: D.2126 AUTHOR: DARIUSZ POSEY PHYSICIAN: REFERRING PHYSICIAN: ADELINE MARTINEZ DO DATE OF SERVICE: 11/16/19 Discharge Plan Patient Name: GILDA CONTRERAS [facility] [facility] 1940 Planned Disposition: Home Anticipated Discharge Date: Discharge Date: 11/16/2019 Expected LOS: Initial Reviewer: [email or web address] Initial Review Date: 11/12/2019 Generated: 11/16/19 1:45 pm Coverage Notice Reviewer: [email or web address] Fanny Gallardo Notice Issued Date-Time: 11/13/2019 13:10 Notice Type: Medicare Outpatient Observation Notice Notice Delivered To: Patient Relationship to Patient: Self Drilling And Production Superintendent Name: Delivery Method: HAND - Hand Delivered Jael Days: Prior Verbal Notification: Recipient Understood Notice: Recipient Signature: Yes Med Rec Note Co-signed by Attending: Coverage Notice Comment: Last DP export: 11/16/19 11:37 a Patient Name: GILDA CONTRERAS Page [phone] at 1245 All edits/amendments must be made on the electronic document DICTATION DATE: 11/16/19 1245 HUMAN SERVICES CASE MANAGER: WILLIAM 11/16/19 1245 RPT#: [id number] DC DATE:11/16/19 STATUS: DIS IN [facility] [address] [place] [address] END OF REPORT
--- NOTE | 2019-11-16 13:18 | MORECARE ---
CASE MANAGEMENT DISCHARGE SUMMARY PATIENT: GILDA CONTRERAS UNIT: [id number] ADM DATE: 11/13/19 AGE: 79 : 39 SEX: M ROOM/BED: D.2126 AUTHOR: DARIUSZ POSEY PHYSICIAN: REFERRING PHYSICIAN: ADELINE MARTINEZ DO DATE OF SERVICE: 11/16/19 Discharge Plan Patient Name: GILDA CONTRERAS Facility: [facility]:[place] : 1940 Planned Disposition: Home Anticipated Discharge Date: Discharge Date: 11/16/2019 Expected LOS: Initial Reviewer: [email or web address] Initial Review Date: 11/12/2019 Generated: 11/16/19 2:17 pm DCPIA - Discharge Planning Initial Assessment Updated by TAIWO: Sherry Coto on 11/16/19 1:10 pm * Is the patient Alert and Oriented? Yes * How many steps to enter\exit or inside your home? 0/0 * PCP Stefano * Pharmacy [facility] * Preadmission Environment Home with Family * ADLs Independent * Equipment Elevated [place] Seat Grab Bars Rolling Walker Shower Chair Tub Bench * List name and contact numbers for known caregivers / representatives who currently or will assist patient after discharge: Oliva () [phone] * Verbal permission to speak to the caregivers and representatives has been obtained from the patient. Yes * Community resources currently utilized Home Health * Please name any agencies selected above. [facility] * Additional services required to return to the preadmission environment? No * Can the patient safely return to the preadmission environment? Yes * Has this patient been hospitalized within the prior 30 days at any hospital? Yes Coverage Notice Reviewer: [email or web address] Fanny Gallardo Notice Issued Date-Time: 11/13/2019 13:10 Notice Type: Medicare Outpatient Observation Notice Notice Delivered To: Patient Relationship to Patient: Self Storeroom Supervisor Name: Delivery Method: HAND - Hand Delivered Jael Days: Prior Verbal Notification: Recipient Understood Notice: Recipient Signature: Yes Med Rec Note Co-signed by Attending: Coverage Notice Comment: Reviewer: [id number] Fanny Coto Notice Issued Date-Time: 11/16/2019 11:45 Notice Type: IM Discharge Notice Notice Delivered To: Patient Relationship to Patient: Storeroom Supervisor Name: Delivery Method: HAND - Hand Delivered Jael Days: Prior Verbal Notification: Recipient Understood Notice: Yes Recipient Signature: Yes Med Rec Note Co-signed by Attending: Coverage Notice Comment: dc imm delivered Reviewer: [email or web address] Fanny Coto Notice Issued Date-Time: 11/16/2019 11:45 Notice Type: Patient Choice Letter Notice Delivered To: Patient Relationship to Patient: Storeroom Supervisor Name: Delivery Method: HAND - Hand Delivered Jael Days: Prior Verbal Notification: Recipient Understood Notice: Yes Recipient Signature: Yes Med Rec Note Co-signed by Attending: Coverage Notice Comment: BALJINDER signed to resume care for [facility] Last DP export: 11/16/19 11:45 a Patient Name: GILDA CONTRERAS Page [phone] at 1318 All edits/amendments must be made on the electronic document DICTATION DATE: 11/16/19 1317 DRYING MACHINE OPERATOR: WILLIAM 11/16/19 1317 RPT#: [id number] DC DATE:11/16/19 STATUS: DIS IN [facility] [address] [place] [address] END OF REPORT
--- NOTE | 2019-11-16 13:33 | MORECARE ---
CASE MANAGEMENT DISCHARGE SUMMARY PATIENT: GILDA CONTRERAS UNIT: [id number] ADM DATE: 11/13/19 AGE: 79 : 39 SEX: M ROOM/BED: D.2126 AUTHOR: DARIUSZ POSEY PHYSICIAN: REFERRING PHYSICIAN: ADELINE MARTINEZ DO DATE OF SERVICE: 11/16/19 Discharge Plan Patient Name: GILDA CONTRERAS Facility: [facility]:[place] : 1940 Planned Disposition: Home Anticipated Discharge Date: Discharge Date: 11/16/2019 Expected LOS: Initial Reviewer: [email or web address] Initial Review Date: 11/12/2019 Generated: 11/16/19 2:32 pm DCPIA - Discharge Planning Initial Assessment Updated by [email or web address]: Sherry Coto on 11/16/19 1:10 pm * Is the patient Alert and Oriented? Yes * How many steps to enter\exit or inside your home? 0/0 * PCP Stefano * [facility] * Preadmission Environment Home with Family * ADLs Independent * Equipment Elevated [place] Seat Grab Bars Rolling Walker Shower Chair Tub Bench * List name and contact numbers for known caregivers / representatives who currently or will assist patient after discharge: [facility] () [phone] * Verbal permission to speak to the caregivers and representatives has been obtained from the patient. Yes * Community resources currently utilized Home Health * Please name any agencies selected above. [facility] * Additional services required to return to the preadmission environment? No * Can the patient safely return to the preadmission environment? Yes * Has this patient been hospitalized within the prior 30 days at any hospital? Yes External Providers External Provider: [facility] Next Contact Date: Service Request Date: Service Type: Resolution: Reviewer: Comments: Coverage Notice Reviewer: [id number] Fanny Gallardo Notice Issued Date-Time: 11/13/2019 13:10 Notice Type: Medicare Outpatient Observation Notice Notice Delivered To: Patient Relationship to Patient: Self Analytical Technician Name: Delivery Method: HAND - Hand Delivered Jael Days: Prior Verbal Notification: Recipient Understood Notice: Recipient Signature: Yes Med Rec Note Co-signed by Attending: Coverage Notice Comment: Reviewer: [id number] - Sherry Coto Notice Issued Date-Time: 11/16/2019 11:45 Notice Type: IM Discharge Notice Notice Delivered To: Patient Relationship to Patient: Analytical Technician Name: Delivery Method: HAND - Hand Delivered Jael Days: Prior Verbal Notification: Recipient Understood Notice: Yes Recipient Signature: Yes Med Rec Note Co-signed by Attending: Coverage Notice Comment: dc imm delivered Reviewer: [email or web address] Fanny Coto Notice Issued Date-Time: 11/16/2019 11:45 Notice Type: Patient Choice Letter Notice Delivered To: Patient Relationship to Patient: Analytical Technician Name: Delivery Method: HAND - Hand Delivered Jael Days: Prior Verbal Notification: Recipient Understood Notice: Yes Recipient Signature: Yes Med Rec Note Co-signed by Attending: Coverage Notice Comment: BALJINDER signed to resume care for [facility] Last DP export: 11/16/19 12:18 p Patient Name: GILDA CONTRERAS Page [id number] at 1333 All edits/amendments must be made on the electronic document DICTATION DATE: 11/16/19 1333 POT FIRER: WILLIAM 11/16/19 1333 RPT#: [id number] DC DATE:11/16/19 STATUS: DIS IN [facility] [address] [place] [address] END OF REPORT
--- NOTE | 2019-11-16 13:41 | MORECARE ---
CASE MANAGEMENT DISCHARGE SUMMARY PATIENT: GILDA CONTRERAS UNIT: [id number] ADM DATE: 11/13/19 AGE: 79 : 39 SEX: M ROOM/BED: D.5343 AUTHOR: DARIUSZ POSEY PHYSICIAN: REFERRING PHYSICIAN: ADELINE MARTINEZ DO DATE OF SERVICE: 11/16/19 Discharge Plan Patient Name: GILDA CONTRERAS Facility: [facility]:[place] : 1940 Planned Disposition: Home Anticipated Discharge Date: Discharge Date: 11/16/2019 Expected LOS: Initial Reviewer: [email or web address] Initial Review Date: 11/12/2019 Generated: 11/16/19 2:41 pm Comments DCP- Discharge Planning Updated by [id number]: Sherry Coto on 11/16/19 12:[address] Patient Name: GILDA CONTRERAS Admission Status: Elective Accout number: [id number] Admission Date: 11-13-2019 : 1940 Admission Diagnosis:UNSPECIFIED ATRIAL FLUTTER Attending: BRANDYN Current LOS: 3 Anticipated DC Date: Planned Disposition: Home Primary Insurance: MEDICARE A & B Discharge Planning Comments: CM met with patient to complete initial dc planning assessment. CM educated patient on the CM role and verbal consent given by patient to complete assessment. CM verified patient's address, phone number, and emergency contact phone numbers. Patient lives at home with his who is currently at bedside. At discharge patient plans to return home and feels this is a safe discharge. CM discussed availability of home health, rehab services, and medical equipment. Patient states he plans to resume [facility] . CM faxed resumption of care orders to [facility] in [place]. Transportation provider at discharge will be his [facility]. DC IMM delivered, explained, signed by the patient, and placed in chart. Signed form also left with the patient. CM will continue to follow and will assist as needed with dc plans/needs. Realty Specialist: Sherry Coto MSN,RN,CM DCPIA - Discharge Planning Initial Assessment Updated by [id number]: Sherry Coto on 11/16/19 1:10 pm * Is the patient Alert and Oriented? Yes * How many steps to enter\exit or inside your home? 0/0 * PCP Stefano * [facility] * Preadmission Environment Home with Family * ADLs Independent * Equipment Elevated [place] Seat Grab Bars Rolling Walker Shower Chair Tub Bench * List name and contact numbers for known caregivers / representatives who currently or will assist patient after discharge: [facility] () [phone] * Verbal permission to speak to the caregivers and representatives has been obtained from the patient. Yes * Community resources currently utilized Home Health * Please name any agencies selected above. [facility] * Additional services required to return to the preadmission environment? No * Can the patient safely return to the preadmission environment? Yes * Has this patient been hospitalized within the prior 30 days at any hospital? Yes Coverage Notice Reviewer: [id number] Fanny Gallardo Notice Issued Date-Time: 11/13/2019 13:10 Notice Type: Medicare Outpatient Observation Notice Notice Delivered To: Patient Relationship to Patient: Self Gear Room Keeper Name: Delivery Method: HAND - Hand Delivered Jael Days: Prior Verbal Notification: Recipient Understood Notice: Recipient Signature: Yes Med Rec Note Co-signed by Attending: Coverage Notice Comment: Reviewer: [id number] Fanny Coto Notice Issued Date-Time: 11/16/2019 11:45 Notice Type: Patient Choice Letter Notice Delivered To: Patient Relationship to Patient: Gear Room Keeper Name: Delivery Method: HAND - Hand Delivered Jael Days: Prior Verbal Notification: Recipient Understood Notice: Yes Recipient Signature: Yes Med Rec Note Co-signed by Attending: Coverage Notice Comment: BALJINDER signed to resume care for [facility] Reviewer: [id number] Fanny Coto Notice Issued Date-Time: 11/16/2019 11:45 Notice Type: IM Discharge Notice Notice Delivered To: Patient Relationship to Patient: Gear Room Keeper Name: Delivery Method: HAND - Hand Delivered Jael Days: Prior Verbal Notification: Recipient Understood Notice: Yes Recipient Signature: Yes Med Rec Note Co-signed by Attending: Coverage Notice Comment: dc imm delivered Last DP export: 11/16/19 12:33 p Patient Name: GILDA CONTRERAS Page [phone] at 1341 All edits/amendments must be made on the electronic document DICTATION DATE: 11/16/19 1341 VP SITE: WILLIAM 11/16/19 1341 RPT#: [id number] DC DATE:11/16/19 STATUS: DIS IN [facility] [address] [place] [address] END OF REPORT
== END 2019-11-16 12:34 | disposition home health service (06) | DRG 308 ==
LOC: D.ER 10:23 → D.M2 14:20 → OBSVTIME 19:30 → D.M2 11-13 18:48
PROVIDERS: Family Medicine; ADMIT Internal Medicine; ATTEND Internal Medicine
DX: I48.92 Unspecified atrial flutter (principal); N18.6 End stage renal disease; I12.0 Hypertensive chronic kidney disease with stage 5 chronic kidney disease or end stage renal disease; I50.22 Chronic systolic (congestive) heart failure; R00.0 Tachycardia, unspecified; D63.1 Anemia in chronic kidney disease; I25.5 Ischemic cardiomyopathy

== ENCOUNTER 2020-01-25 07:00 | Day surgery (SDC) | payer MEDICARE, OTHER ==
[~2020-01-25] VITALS: Ht 177.8 cm; Wt 73.6 kg
--- NOTE | ~2020-01-25 | OP ---
PATIENT NAME: GILDA ENAMORADO MEDICAL RECORD: [id number] :[birth year] LOCATION:[facility] ADMISSION DATE: SURGEON: GILDA LOAIZA MD DATE OF OPERATION: 01/25/2020 PREOPERATIVE DIAGNOSES: End-stage renal disease and dependence on hemodialysis and other mechanical complication of surgically created AV fistula, left arm. OPERATION PERFORMED: Implantation of a left brachial artery to proximal basilic vein, rainbow configured Artegraft with also ligation of existing AV fistula at the proximal radial artery and excision of benign skin lesion 0.3 cm in diameter from the volar aspect of the mid left forearm. SURGEON: Gilda Loaiza MD ANESTHESIA: Regional nerve block plus IV sedation and monitoring per SR. MANAGER. REFERRING PHYSICIAN: Barbara Martinez DO PREOPERATIVE NOTE: Mr. Enamorado is an 79-year-old white male patient from [place], [place]. He has end-stage renal disease and has been dialyzing for some time now with a right tunneled dialysis catheter. He has needed a long-term dialysis access, but that has been delayed by the COVID crisis and also by his coronary artery disease. He underwent coronary artery bypass in September of this year. He is brought to the operating room today as an outpatient to go ahead with a left arm AV graft. I do not think he has any vein suitable for creation of a primary fistula and especially considering his age and overall health, I believe that a graft will be the best choice for him. There is a small red papular lesion about 3 mm in diameter on the mid left forearm, which has been present for several months according to the patient. I plan to excise that by doing an excisional biopsy today. DESCRIPTION OF PROCEDURE: Under anesthesia in supine position, the patient was prepped and draped in a sterile manner. He was first examined with ultrasound and I elected to proceed with the brachial artery to proximal basilic vein graft. An upper arm incision was made and the basilic vein exposed and controlled with Silastic loops. An incision was then made just above the elbow and the brachial artery was exposed and controlled with Silastic loops. I chose an Artegraft and prepared it according to shake backboard notcher's instructions. It was then bevelled. The vein was occluded and opened and flushed with heparinized saline and the graft was then anastomosed end of graft to side of vein with running 6-0 Prolene. When completed, the graft was flushed and the vein flushed with heparinized saline and the suture line was hemostatic. I then placed the graft in a very superficial semicircular or curvilinear subcutaneous tunnel going out anteriorly and laterally and then coming back to the distal medial incision to the brachial artery. The graft was again flushed with heparinized saline and pressurized in that manner that demonstrate that it was not kinked or twisted. The artery was occluded with Silastic loops and opened and then flushed proximally and distally with heparinized saline. The arteriotomy was approximately 1 cm in diameter. The graft was shortened and beveled and anastomosed end of graft to side of artery with running 6-0 Prolene and when that suture line was completed and the occluding loops and clamps released, excellent flow developed immediately within the new graft. I did examine the distal arm and hand and noted that the radial artery may be occluded due to OPERATIVE REPORT [id number] GILDA ENAMORADO prior operations, but the ulnar artery seems to have good pulsatile flow within it which is affected very little by the proximal AV graft. There was excellent pulsatile Doppler flow in the palmar arch. The hand appeared pink and there was no sign of ischemia. The wounds were infiltrated and irrigated with 0.25% Marcaine and then irrigated with Ancef and gentamicin solution. They were closed with interrupted inverted 3-0 Vicryl and running intracuticular 4-0 Stratafix and Dermabond glue. I then reopened the incision over the proximal radial artery and exposed the vein there. I believe this had been a bidirectional anastomosis. There was very little venous outflow left, but still some and I dissected the remaining vein from the superficial tissues right at the arterial anastomosis and ligated it twice with a 2-0 silk. This resulted in ablation of the palpable pulsation and thrill. That wound was irrigated with Ancef/gentamicin solution and infiltrated with Marcaine and closed in a similar manner. The skin lesion on the lateral forearm was then excised with a vertically oriented ellipse excising the entire lesion with a grossly clear and margin thin and a deep margin. The specimen was sent to pathology labeled as left arm skin lesion. I used electrocautery minimally for hemostasis, infiltrated the wound with some Marcaine without epinephrine and then closed it with a couple of interrupted simple 4-0 Prolene sutures. Sterile dressing was applied there. The patient was at that time, then awakened and taken to the recovery room in stable condition. Blood loss during the operation was trivial and unreplaced. Sponges, instruments, and needles were accounted for. No drain was used. The surgical specimen consisted of the skin lesion and sent for biopsy. PLAN: The patient will go home today and come back to see me in my office next week. He is to leave the operative dressing intact and dry until that time. He will continue his home medications. Continue his routine dialysis schedule, diet, etc. He is given a prescription for tramadol 50 mg tablets. He can take 1 or if necessary two q.4 hours p.r.n. pain, he is given 20. TRANSINT:[id number] Voice Confirmation ID: [id number] DOCUMENT ID: [id number] cc: GILDA Rodgers MD CC: BARBARA MARTINEZ DO [id number] DICTATION DATE: 01/25/20 1645 TOPPIECE CHOPPER: 01/26/20 0117 [facility] 01/25/[address] [address]
[2020-01-25 07:44] LABS: INR 1.12 (0.85-1.17); PROTIME 14.3 SECONDS (11.6-15.0)
[2020-01-25 07:48] LABS: HEMATOCRIT 32.3 % (42.0-54.0); MCH 30.8 pg (26.0-34.0); MCV 99.4 fL (80.0-100.0); MEAN PLATELET VOLUME 9.9 fL (7.4-10.4); PLATELET COUNT 416 10x3/uL (130-400); RBC 3.25 10x6/uL (4.20-6.10); RDW 17.9 % (11.5-14.5); WBC 10.3 10x3/uL (4.8-10.8)
[2020-01-25 07:57] LABS: ANION GAP 13.6 mmol/L (8-16); CALCIUM 8.8 mg/dL (8.5-10.1); CARBON DIOXIDE 27.2 mmol/L (21.0-32.0); CREATININE - SERUM 5.4 mg/dL (0.6-1.3); POTASSIUM - SERUM 4.8 mmol/L (3.5-5.1)
[2020-01-25 08:55] VITALS: Ht 177.8 cm; Wt 73.6 kg
--- NOTE | 2020-01-25 09:37 | NUR ---
0915-Azeb August APN notified of consult and she will see patient.
[2020-01-25 13:02] LABS: EOSINOPHILS 9 % (0-7); LYMPHOCYTES 17 % (15-50); MONOCYTES 11 % (2-11); NEUTROPHILS 62 % (40-80); PLATELET ESTIMATE INCREASED
[2020-01-25] MEDS ORDERED: ULTRAM50 MG PO (16:14)
--- NOTE | 2020-01-25 17:45 | NUR ---
PT DC INSTRUCTIONS REVIEWED AT THIS TIME, PT AND FAMILY VERBALIZE UNDERSTANDING. PT HEMOSPLIT FLUSHED WITH 1.8CC OF HEPARIN PER HEMOSPLIT, AND STERILE CAP APPLIED. NAD NOTE AT THIS TIME.
--- NOTE | 2020-01-25 18:07 | NUR ---
PT LEAVING OPS AT THIS TIME VIA WC, NAD NOTED.
== END 2020-01-25 18:07 | disposition home or self-care (01) ==
LOC: D.OPS 07:00
PROVIDERS: Surgery; ATTEND Internal Medicine Nephrology
DX: N18.6 End stage renal disease (principal); Z99.2 Dependence on renal dialysis; I10 Essential (primary) hypertension; E11.9 Type 2 diabetes mellitus without complications; I25.10 Atherosclerotic heart disease of native coronary artery without angina pectoris